=== PATIENT | male | born 1940 | race Native Hawaiian/Other Pacific Islander ===

== ENCOUNTER 2017-12-01 06:17 | Inpatient (IN) | payer MEDICARE ==
[2017-11-30 08:14] VITALS: BMI 26.5
[2017-12-01] MEDS ORDERED: Propofol 10 mg/ml Inj (20 ML) ONE (07:14)
[2017-12-01] MEDS ORDERED: Succinylcholine 200 mg/10 ml Inj IV ONE (07:15)
[2017-12-01] MEDS ORDERED: ePHEDrine 50 mg/ml Inj ONE (07:15)
[2017-12-01] MEDS ORDERED: Rocuronium 10 mg/ml (5 ml) ONE (07:15)
[2017-12-01] MEDS ORDERED: Midazolam 2 MG/2 ML VIAL ONE (07:15)
[2017-12-01 07:16] LABS: INR 0.9 (0.9-1.2); PARTIAL THROMBOPLASTIN TIME 28.7 Seconds (25.6-37.1); PROTHROMBIN TIME 10.1 Seconds (9.8-13.1)
[2017-12-01] MEDS ORDERED: methylPREDNISolone Depo 80 mg/ml Inj ONE (07:37)
[2017-12-01] MEDS ORDERED: Bupivacaine 0.5% Inj(30mL) ONE (07:38)
[2017-12-01] MEDS ORDERED: Thrombin Topical 5,000 Int Units Spray Kit ONE (07:38)
[2017-12-01] MEDS ORDERED: Bacitracin Ointment 30 GM TUBE ONE (07:38)
[2017-12-01] MEDS ORDERED: Lidocaine Hydrochloride 1% 0 ML ONE (07:38)
[2017-12-01] MEDS ORDERED: Absorbable Gelatin Sponge Size 100 ONE (07:38)
[2017-12-01] MEDS ORDERED: EPINEPHrine 1 mg/ml (1:1000) Inj ONE (07:47)
[2017-12-01] MEDS ORDERED: Lactated Ringer's 1,000 ML IV ONE ×2 (08:12→10:00)
--- NOTE | 2017-12-01 08:47 | RAD ---
HISTORY: preop COMPARISON: None available TECHNIQUE: Chest PA and lateral FINDINGS: LUNGS: Patchy left lower lobe opacity. Possible early pneumonia. Followup advised. PLEURA: No significant pleural effusion identified. No pneumothorax apparent. CARDIOVASCULAR: Normal. OSSEOUS STRUCTURES: No significant abnormalities. VISUALIZED UPPER ABDOMEN: Normal. OTHER FINDINGS: None. IMPRESSION: Patchy left lower lobe opacity. Follow-up advised.
[2017-12-01] MEDS ORDERED: Morphine 1 mg/ml preservative-free Inj(Duramorph) ONE (09:35)
[2017-12-01] MEDS ORDERED: Bupivacaine 0.5% 50 ML IJ ONE (09:50)
[2017-12-01] MEDS ORDERED: EPINEPHrine 1 mg/ml (1:1000) Inj IV ONE (09:50)
[2017-12-01] MEDS ORDERED: DiphenhydrAMINE 50 mg/ml Inj IVP PRN (10:46)
--- NOTE | 2017-12-01 11:55 | PCM.SURG1 ---
Surgeon's Initial Post Op Note - Surgeon's Notes Surgeon: Bayron Diaz MD Data Management Associate: Gardenia Maldonado PA-C; Loli Lowe DPM Type of Anesthesia: General Endo Pre-Operative Diagnosis: Right knee severe osteoarthritis Operative Findings: see op report Post-Operative Diagnosis: same as pre-op dx Operation Performed: R TKR Specimen/Specimens Removed: right knee bone and soft tissue Estimated Blood Loss: EBL {In ML}: 100 Date of Surgery/Procedure: 12/01/17 Time of Surgery/Procedure: 08:00
[2017-12-01] MEDS ORDERED: Oxycodone/Acetaminophen 5/325 mg Tab PO PRN (12:02)
--- NOTE | 2017-12-01 12:31 | RAD ---
PROCEDURE: Right Knee Radiographs. HISTORY: s/p RTKR COMPARISON: None. FINDINGS: BONES: Right total knee replacement. No osseous fracture. JOINTS: Normal. No osteoarthritis. JOINT EFFUSION: None. OTHER FINDINGS: Postoperative changes in anterior soft tissues about the knee and distal thigh IMPRESSION: Status post right TKR.
[2017-12-01] MEDS ORDERED: Dextrose 50% SYRINGE Inj (50 ml) IV PRN (12:56)
[2017-12-01] MEDS ORDERED: Glucagon Recombinant 1 mg Inj IM PRN (12:56)
--- NOTE | 2017-12-01 13:04 | CP.PCM.HP ---
<Thony Hart - Last Filed: 12/01/17 12:58> History of Present Illness - History of Present Illness History of Present Illness: CC: s/p right total knee replacement HPI: 77 y/o man w/ pmh of HTN, CAD s/p cath stented 2006, NIDDM2, HLD, diabetic neuropathy, and severe osteoarthritis of the right knee is admitted s/p right total knee replacement. Patient has severe OA of right knee thus prompting total replacement. The patient was seen in the PACU, tolerated the procedure w/ o complications, and is recovering appropriately. The patient reports mild pain and ache at surgical site but otherwise has no complaints. The patient denies headaches, chest pain, SOB, abdominal pain, nausea, vomiting, diarrhea, dysuria, or fever. PMD: Dr. Melo Bailey PMH: HTN, CAD s/p cath stented 2006, NIDDM2, HLD, diabetic neuropathy, and severe osteoarthritis of the right knee meds: see med list allergies: NKDA PSH: cath 2006 Fam: non-contributory SOC: denies smoking, alcohol, and drugs ROS: 12 points assessed and negative unless otherwise reported in HPI Present on Admission - Present on Admission Any Indicators Present on Admission: No History of DVT/PE: No History of Uncontrolled Diabetes: No Urinary Catheter: No Decubitus Ulcer Present: No Review of Systems - Review of Systems All systems: reviewed and no additional remarkable complaints except - Constitutional Constitutional: absent: Chills, Fever, Headache - EENT Eyes: absent: Change in Vision - Cardiovascular Cardiovascular: absent: Chest Pain - Respiratory Respiratory: absent: Dyspnea - Gastrointestinal Gastrointestinal: absent: Abdominal Pain, Diarrhea, Nausea, Vomiting - Genitourinary Genitourinary: absent: Dysuria - Integumentary Integumentary: absent: Rash Past Patient History - Past Medical History & Family History Past Medical History?: Yes - Past Social History Smoking Status: Never Smoked - CARDIAC Hx Cardiac Disorders: Yes Hx Hypercholesterolemia: Yes Hx Hypertension: Yes Other/Comment: has angioplasty w stent 10 yrs ago - PULMONARY Hx Respiratory Disorders: No - NEUROLOGICAL Hx Neurological Disorder: No - HEENT Hx HEENT Problems: Yes - RENAL Hx Chronic Kidney Disease: No - ENDOCRINE/METABOLIC Hx Endocrine Disorders: Yes Hx Diabetes Mellitus Type 2: Yes - HEMATOLOGICAL/ONCOLOGICAL Hx Blood Disorders: No - INTEGUMENTARY Hx Dermatological Problems: No - MUSCULOSKELETAL/RHEUMATOLOGICAL Hx Musculoskeletal Disorders: Yes Hx Arthritis: Yes (knees) - GASTROINTESTINAL Hx Gastrointestinal Disorders: No - GENITOURINARY/GYNECOLOGICAL Hx Genitourinary Disorders: No - PSYCHIATRIC Hx Psychophysiologic Disorder: No - SURGICAL HISTORY Hx Surgeries: No - ANESTHESIA Hx Anesthesia: No Hx Anesthesia Reactions: No Hx Malignant Hyperthermia: No Has any member of the family had a problem w/ anesthesia?: No Meds Allergies/Adverse Reactions: Allergies Allergy/AdvReac Type Severity Reaction Status Date / Time No Known Allergies Allergy Verified 11/30/17 08:14 Physical Exam - Constitutional Appears: Non-toxic, No Acute Distress - Head Exam Head Exam: ATRAUMATIC, NORMAL INSPECTION, NORMOCEPHALIC - Eye Exam Eye Exam: Normal appearance - ENT Exam ENT Exam: Mucous Membranes Moist - Neck Exam Neck exam: Positive for: Full Rom. Negative for: Tenderness - Respiratory Exam Respiratory Exam: Clear to Auscultation Bilateral, NORMAL BREATHING PATTERN. absent: Accessory Muscle Use, Decreased Breath Sounds, Rales, Rhonchi, Wheezes, Respiratory Distress - Cardiovascular Exam Cardiovascular Exam: REGULAR RHYTHM. absent: Tachycardia - GI/Abdominal Exam GI & Abdominal Exam: Normal Bowel Sounds, Soft. absent: Distended, Tenderness - Extremities Exam Extremities exam: Negative for: calf tenderness, pedal edema, tenderness Additional comments: right leg wrapped in diana bandage, c/d/i - Neurological Exam Neurological exam: Alert, Oriented x3 - Skin Skin Exam: Dry, Intact, Normal Color, Warm Results - Vital Signs Recent Vital Signs: Last Vital Signs Temp 97.4 F L 12/01/17 12:25 Pulse 87 12/01/17 12:25 Resp 18 12/01/17 12:25 BP 121/63 12/01/17 12:25 Pulse Ox 99 12/01/17 12:25 - Labs Labs: Laboratory Results - last 24 hr 12/01/17 12/01/17 12/01/17 06:45 06:45 07:24 PT 10.1 INR 0.9 APTT 28.7 POC Glucose (mg/dL) 149 H Blood Type A POSITIVE Antibody Screen Negative Crossmatch See Detail BBK History Checked No verified bt 12/01/17 10:55 PT INR APTT POC Glucose (mg/dL) 164 H Blood Type Antibody Screen Crossmatch BBK History Checked Assessment & Plan (1) Status post total right knee replacement Status: Acute (2) HTN (hypertension) Status: Chronic (3) Diabetes mellitus, type 2 Status: Chronic (4) CAD (coronary artery disease) Status: Chronic (5) Diabetic neuropathy Status: Chronic (6) HLD (hyperlipidemia) Status: Chronic - Assessment and Plan (Free Text) Plan: c/w present management c/w home medications afebrile, non-tachycardic, normotensive ortho recommendations appreciated pain management: tylenol 325 mg PO Q4h prn (mild), toradal 15 mg IV Q8h, percocet 1 tab PO Q4h prn (moderate), oxycodone 10 mg PO Q12h insulin correction scale hypoglycemic protocol prophylactic measures: DVT lovenox 40 mg SC daily f/u CBC, BMP in AM monitor for acute changes <Anuel Duran - Last Filed: 12/02/17 12:00> Results - Vital Signs Recent Vital Signs: Last Vital Signs Temp 99.8 F H 12/02/17 11:37 Pulse 102 H 12/02/17 11:37 Resp 20 12/02/17 11:37 BP 95/55 L 12/02/17 11:37 Pulse Ox 93 L 12/02/17 11:37 - Labs Result Diagrams: 12/02/17 05:40 12/02/17 05:40 Labs: Laboratory Results - last 24 hr 12/01/17 12/01/17 12/02/17 09:45 21:43 05:25 WBC RBC Hgb Hct MCV MCH MCHC RDW Plt Count MPV Neut % (Auto) Lymph % (Auto) [place] % (Auto) Eos % (Auto) Baso % (Auto) Neut # (Auto) Lymph # (Auto) [place] # (Auto) Eos # (Auto) Baso # (Auto) Sodium Potassium Chloride Carbon Dioxide Anion Gap BUN Creatinine Est GFR ( Amer) Est GFR (Non-Af Amer) POC Glucose (mg/dL) 171 H 158 H Random Glucose Calcium Blood Type Confirm A POSITIVE 12/02/17 12/02/17 12/02/17 05:40 05:40 10:57 WBC 8.5 RBC 3.56 L Hgb 10.6 L Hct 31.4 L MCV 88.3 MCH 29.7 MCHC 33.6 RDW 13.7 Plt Count 179 MPV 8.0 Neut % (Auto) 71.7 Lymph % (Auto) 15.0 L [place] % (Auto) 12.4 H Eos % (Auto) 0.8 Baso % (Auto) 0.1 Neut # (Auto) 6.1 Lymph # (Auto) 1.3 [place]field # (Auto) 1.0 H Eos # (Auto) 0.1 Baso # (Auto) 0.0 Sodium 131 L Potassium 4.6 Chloride 96 L Carbon Dioxide 25 Anion Gap 15 BUN 12 Creatinine 1.2 Est GFR ( Amer) > 60 Est GFR (Non-Af Amer) 59 POC Glucose (mg/dL) 186 H Random Glucose 164 H Calcium 8.5 Blood Type Confirm Assessment & Plan - Assessment and Plan (Free Text) Plan: I was present during evaluation and discussed with Dr Hart re plans of care and tx. Anuel Duran M.d.
--- NOTE | 2017-12-01 14:26 | OP ---
PROCEDURE DATE: 12/01/2017 PREOPERATIVE DIAGNOSIS: Right knee osteoarthritis. POSTOPERATIVE DIAGNOSIS: Right knee osteoarthritis. PROCEDURE: Right total knee replacement. ATTENDING PHYSICIAN: Bayron Diaz MD DIFFUSION OPERATOR: Gardenia Maldonado PA-C IMPLANTS SIZE: [employer] size 2 femur, size 2 tibia, 13 mm polyethylene insert, 29 mm patella. ANESTHESIA TYPE: General. ESTIMATED BLOOD LOSS: 50 mL. COMPLICATIONS: None. HISTORY: The patient with prolonged history of right knee pain progressively getting worse despite extensive conservative management, which included activity modification, injections, anti-inflammatory modification and physical therapy. X-rays had revealed advanced arthritis. Patient was indicated for total knee replacement due to continued pain and limited mobility. I had a detailed discussion with the patient in the office explaining the nature of the surgery, alternatives of surgery, risks and benefits, rehabilitation protocol and surgical markings. Risks of surgery include but not limited to continued pain, lack of motion, infection, vascular injury, DVT / PE, nerve injury including peroneal nerve dysfunction, reflex sympathetic dystrophy, compartment syndrome, unforeseen medical and/or anesthesia complications, limb loss, and even . The patient expressed an understanding of the risks and possible benefits of the procedure, and is also aware of the alternatives to surgery. PROCEDURE: On the day of the surgery, the patient was admitted to pre-operative holding area. A laterality sheet was completed confirming the correct operative site. The correct surgical knee was marked in the holding area and informed consent was signed from the patient. Once again, I reviewed the risks and benefits of the surgery with the patient in detail. These risks include but are not limited to continued pain, lack of motion, infection, vascular injury, DVT / PE, nerve injury including peroneal nerve dysfunction, reflex sympathetic dystrophy, symptomatic hardware, need for further procedure and surgeries, instability, iatrogenic fractures, compartment syndrome, unforeseen medical and/or anesthesia complications, limb loss, and even . The patient expressed an understanding of the risks and possible benefits of the procedure, also aware of the alternatives to surgery and signed the informed consent. The patient was transported to the operating room and placed in the supine position, general anesthesia was obtained. A padded tourniquet was applied to patient's operative thigh and appropriate prophylactic antibiotics were given. The operative leg was draped and prepped in standard sterile manner. Timeout was completed, confirming patient's right knee to be the correct operative site. Using an Esmarch, the extremity was exsanguinated and tourniquet was inflated to 350 mmHg. The surgical incision markings were made using patella border, tibial tubercle, patella and quadriceps tendon. Using a 10 blade, a midline incision was made. Skin dissection was taken until the prepatellar fascia was identified and the corners of the patellar tendon were marked for proper closure at the end of the procedure. Using a fresh 10 blade, a medial parapatellar arthrotomy was performed. The knee was exposed in the standard manner. The deep MCL was elevated for exposure, medial and lateral menisci were removed, ACL and PCL were also transected. The tibia was subluxed anteriorly. Planned tibial cut was made with power saw, using extra-medullary guide, perpendicular to mechanical axis of the tibia. After the cut was made, the alignment was also checked and was found to be appropriate. Tibial cut surface was measured with trial base plate and it was noted that size 2 tibial baseplate was provide sufficient coverage without overhang. Tibial component was externally rotated and marked. Next, the knee was placed into 90 degrees of flexion. A drill hole was made within the femoral notch anterior to PCL insertion for placement of intramedullary femoral alexis. Intramedullary femoral alexis was inserted within the femoral canal and planned distal femoral cut was made. After the cut, knee was brought into full extension. Spacer blocks were used to check the extension balancing both in full extension and 30 degrees of flexion. It was found that 13 mm trial spacer block allowed full extension with symmetric varus and valgus balancing. Next we proceed with Patella resurfacing. [place] patella width was 24 mm. Using the free-hand technique the arthritic patella surface was resected. Patella was sized using the guide and it was noted that 29 mm. Patella dome button would be appropriate for the patient. Next the size of femoral component was determined using the posterior referencing guide. It was noted that a size 2 femur would be appropriate for this patient without causing any significant notching. A 4 x 1 cutting block was placed and flexion gap balancing was checked. The flexion gap was found to be symmetric to the extension gap. Anterior and posterior condyle, anterior and posterior chamfer cuts were made. Next, appropriate size box cut for femoral component was prepared using the guide. The femoral trial component was impacted onto the distal femur. Appropriate size tibial trial component was also placed on the cut surface of the tibia. Using the drill and punch, keel for tibial implant was prepared. Trial tibial tray was secured onto the tibia using pins. Different size trial polyethylene inserts were secured on to the trial tibial tray to critically assess the following parametes: Full range of motion, extension and flexion gap balancing, mid-flexion stability, anterior and posterior drawer, and patellar tracking. All parameter were found to be satisfactory with 13 mm insert. All the trial components were removed. Implants were opened on the back table. Cement was mixed and we proceed with cement fixation of the implants. Tibial tray, femoral component and patellar dome button were secured with cement. Polyethylene insert was secured onto the tibial tray using locking mechanism. The knee was reduced and brought into full extension. Cement was allowed to harden until final component fixation. Knee was taken through the final range of motion for stability testing, and found to be satisfactory. 60 cc of custom cocktail mixture was injected into posterior capsule, MCL, LCL, quadriceps tendon, and patellar tendon. Wound was copiously irrigated with sterile antibiotic solution using pulse lavage. Arthrotomy was closed using heavy suture and wound was closed in standard manner. Patient was extubated, transferred to stretcher and taken to the recovery room. Post-operative instructions were provided, physical therapy consult was requested along with DVT prophylaxis and appropriate pain medications. During this procedure, I was assisted by Gardenia Maldonado PA-C, who assisted in positioning the patient on the operating room table as well as transferring the patient from the operating room table to the recovery room stretcher. In addition, Gardenia Maldonado PA-C assisted me during the actual operative procedure by positioning, protecting critical neurovascular structures, exposure of the joint, and proper positioning of the implants. The presence of Gardenia Maldonado PA-C as my operative sociology research assistant was medically necessary to ensure the utmost safety of the patient in the pre, intra-, and post-operative periods. Bayron Diaz MD [facility]
[2017-12-01] MEDS ORDERED: ceFAZolin 1 GM in Sodium Chloride 0.9% 100 ML IVPB ONE ×2 (14:30→20:30)
[2017-12-01] MEDS: oxyCODONE 10 mg ER Tab (oxyCONTIN) PO SCH (21:24)
[2017-12-02 06:40] LABS: BASO % 0.1 % (0.0-2.0); EOS # 0.1 K/uL (0.0-0.7); EOS % 0.8 % (0.0-4.0); HEMOGLOBIN 10.6 g/dL (12.0-18.0); LYMPH # 1.3 K/uL (1.0-4.3); MEAN CELL VOLUME 88.3 fl (80.0-94.0); MEAN CORPUSCULAR HEMOGLOBIN 29.7 pg (27.0-31.0); MEAN CORPUSCULAR HGB CONC 33.6 g/dL (33.0-37.0); MONO % 12.4 % (0.0-10.0); NEUT # 6.1 K/uL (1.8-7.0); NEUT % 71.7 % (50.0-75.0); RBC 3.56 Mil/uL (4.40-5.90); RED CELL DISTRIBUTION WIDTH 13.7 % (11.5-14.5); WHITE BLOOD COUNT 8.5 K/uL (4.8-10.8)
[2017-12-02 06:52] LABS: BLOOD UREA NITROGEN 12 mg/dl (9-20); CALCIUM 8.5 mg/dL (8.4-10.2); GFR AFRICAN-AMERICAN > 60; GFR NON-AFRICAN AMERICAN 59
--- NOTE | 2017-12-02 08:57 | CP.PCM.PN ---
Subjective - Date & Time of Evaluation Date of Evaluation: 12/02/17 Time of Evaluation: 08:30 - Subjective Subjective: S/P RTKR POD#1 Pt seen and examined at bedside, comfortable in bed Pt c/o mild right thigh and knee pain Pt denies any SOB, chest pain, N/V/D, numbness/tingling RLE Objective - Vital Signs/Intake and Output Vital Signs (last 24 hours): Temp Pulse Resp BP Pulse Ox 98.7 F 98 H 18 108/64 94 L 12/02/17 08:25 12/02/17 08:25 12/02/17 08:25 12/02/17 08:25 12/02/17 08:25 Intake and Output: 12/02/17 12/02/17 06:59 18:59 Intake Total 500 Output Total 450 Balance 50 - Medications Medications: Current Medications Acetaminophen (Tylenol 325mg Tab) 325 mg PO Q4 PRN PRN Reason: pain1-3 Aspirin (Ecotrin) 81 mg PO DAILY [facility] Atorvastatin Calcium (Lipitor) 10 mg PO DAILY [facility] Celecoxib (Celebrex) 100 mg PO Q12 [facility] Stop: 01/12/18 09:01 Last Admin: 12/01/17 21:26 Dose: 100 mg Dextrose (Dextrose 50% Inj) 0 ml IV STAT PRN; Protocol PRN Reason: Hypoglycemia Protocol Dextrose (Glutose 15) 0 gm PO ONCE PRN; Protocol PRN Reason: Hypoglycemia Protocol Enoxaparin Sodium (Lovenox) 40 mg SC DAILY [facility] PRN Reason: Protocol Gabapentin (Neurontin) 300 mg PO TID [facility] Last Admin: 12/01/17 21:25 Dose: 300 mg Glucagon (Glucagen Diagnostic Kit) 0 mg IM STAT PRN; Protocol PRN Reason: Hypoglycemia Protocol Insulin Human Lispro (Humalog) 0 units SC ACTID [facility] PRN Reason: Protocol Ketorolac Tromethamine (Toradol) 15 mg IVP Q8 [facility] Stop: 12/03/17 23:59 Last Admin: 12/02/17 01:02 Dose: 15 mg Metformin HCl (Glucophage) 500 mg PO BID [facility] Metoprolol Succinate (Toprol Xl) 25 mg PO DAILY [facility] Multivitamins/Minerals (Therapeutic-M Tab) 1 tab PO DAILY [facility] Oxycodone HCl (Oxycontin Extended Release Tab) 10 mg PO Q12 [facility] Stop: 12/15/17 09:01 Last Admin: 12/01/17 21:24 Dose: 10 mg Oxycodone/Acetaminophen (Percocet 5/325 Mg Tab) 1 tab PO Q4 PRN PRN Reason: pain4-7 Stop: 12/04/17 12:03 Tamsulosin HCl (Flomax) 0.4 mg PO HS [facility] Last Admin: 12/01/17 21:25 Dose: 0.4 mg - Labs Labs: 12/02/17 05:40 12/02/17 05:40 PT 10.1 Seconds (9.8-13.1) 12/01/17 06:45 INR 0.9 (0.9-1.2) 12/01/17 06:45 APTT 28.7 Seconds (25.6-37.1) 12/01/17 06:45 - Constitutional Appears: Well, No Acute Distress - Respiratory Exam Respiratory Exam: Clear to Ausculation Bilateral, NORMAL BREATHING PATTERN - Cardiovascular Exam Cardiovascular Exam: REGULAR RHYTHM, RRR - Extremities Exam Additional comments: RLE: Knee dressing C/D/I Calves soft and nontender b/l N/V intact distally Normal ROM at ankle No foot drop Distal pulses wnl Assessment and Plan - Assessment and Plan (Free Text) Assessment: 77 yo M s/p RTKR POD#1 Plan: Pain Control Incentive Spirometer DVT ppx- SCD b/l Start lovenox today PT/OT WBAT RLE F/U labs
[2017-12-02] MEDS: Insulin Lispro (humaLOG) 100 Units/ml Inj SC SCH ×4 (09:11→18:50)
[2017-12-02] MEDS: Multivitamin With Minerals Tab PO SCH (09:12)
[2017-12-02] MEDS: Enoxaparin 40 mg Syringe SC SCH (09:12)
[2017-12-02] MEDS: Metoprolol Succinate 25 mg XL Tab PO SCH (09:13)
[2017-12-02] MEDS: oxyCODONE 10 mg ER Tab (oxyCONTIN) PO SCH ×2 (09:17→21:53)
--- NOTE | 2017-12-02 12:03 | CP.PCM.PN ---
Subjective - Date & Time of Evaluation Date of Evaluation: 12/02/17 Time of Evaluation: 12:00 - Subjective Subjective: patient has minimal pain Noted distended abdomen No bm since a day prior to surgery Noted elevated FBS No A1c on low dose metformin Objective - Vital Signs/Intake and Output Vital Signs (last 24 hours): Temp Pulse Resp BP Pulse Ox 99.8 F H 102 H 20 95/55 L 93 L 12/02/17 11:37 12/02/17 11:37 12/02/17 11:37 12/02/17 11:37 12/02/17 11:37 Intake and Output: 12/02/17 12/02/17 06:59 18:59 Intake Total 500 Output Total 450 Balance 50 - Medications Medications: Current Medications Acetaminophen (Tylenol 325mg Tab) 325 mg PO Q4 PRN PRN Reason: pain1-3 Aspirin (Ecotrin) 81 mg PO DAILY [facility] Last Admin: 12/02/17 09:10 Dose: 81 mg Atorvastatin Calcium (Lipitor) 10 mg PO DAILY [facility] Last Admin: 12/02/17 09:11 Dose: 10 mg Celecoxib (Celebrex) 100 mg PO Q12 [facility] Stop: 01/12/18 09:01 Last Admin: 12/02/17 09:10 Dose: 100 mg Dextrose (Dextrose 50% Inj) 0 ml IV STAT PRN; Protocol PRN Reason: Hypoglycemia Protocol Dextrose (Glutose 15) 0 gm PO ONCE PRN; Protocol PRN Reason: Hypoglycemia Protocol Enoxaparin Sodium (Lovenox) 40 mg SC DAILY [facility] PRN Reason: Protocol Last Admin: 12/02/17 09:12 Dose: 40 mg Gabapentin (Neurontin) 300 mg PO TID [facility] Last Admin: 12/02/17 09:12 Dose: 300 mg Glucagon (Glucagen Diagnostic Kit) 0 mg IM STAT PRN; Protocol PRN Reason: Hypoglycemia Protocol Insulin Human Lispro (Humalog) 0 units SC ACTID [facility] PRN Reason: Protocol Last Admin: 12/02/17 09:11 Dose: 2 units Ketorolac Tromethamine (Toradol) 15 mg IVP Q8 [facility] Stop: 12/03/17 23:59 Last Admin: 12/02/17 09:13 Dose: 15 mg Lactulose (Enulose) 20 gm PO DAILY PRN PRN Reason: Constipation Metformin HCl (Glucophage) 500 mg PO BID [facility] Last Admin: 12/02/17 09:10 Dose: 500 mg Metoprolol Succinate (Toprol Xl) 25 mg PO DAILY [facility] Last Admin: 12/02/17 09:13 Dose: 25 mg Multivitamins/Minerals (Therapeutic-M Tab) 1 tab PO DAILY [facility] Last Admin: 12/02/17 09:12 Dose: 1 tab Oxycodone HCl (Oxycontin Extended Release Tab) 10 mg PO Q12 [facility] Stop: 12/15/17 09:01 Last Admin: 12/02/17 09:17 Dose: 10 mg Oxycodone/Acetaminophen (Percocet 5/325 Mg Tab) 1 tab PO Q4 PRN PRN Reason: pain4-7 Stop: 12/04/17 12:03 Tamsulosin HCl (Flomax) 0.4 mg PO HS [facility] Last Admin: 12/01/17 21:25 Dose: 0.4 mg - Labs Labs: 12/02/17 05:40 12/02/17 05:40 PT 10.1 Seconds (9.8-13.1) 12/01/17 06:45 INR 0.9 (0.9-1.2) 12/01/17 06:45 APTT 28.7 Seconds (25.6-37.1) 12/01/17 06:45 - Head Exam Head Exam: NORMAL INSPECTION - Eye Exam Eye Exam: Normal appearance - ENT Exam ENT Exam: Mucous Membranes Moist - Respiratory Exam Respiratory Exam: Clear to Ausculation Bilateral - Cardiovascular Exam Cardiovascular Exam: REGULAR RHYTHM - GI/Abdominal Exam GI & Abdominal Exam: Distended, Hypoactive Bowel Sounds - Neurological Exam Neurological Exam: Awake, Oriented x3 Assessment and Plan (1) Status post total right knee replacement Status: Acute (2) CAD (coronary artery disease) Status: Chronic (3) Diabetes mellitus, type 2 Status: Chronic (4) HTN (hypertension) Status: Chronic (5) Constipation Status: Acute (6) Abdominal distention Status: Acute - Assessment and Plan (Free Text) Plan: do flat plate check a1c lipid tsh and increase metformin to max dose add januvia start lactulose start PT
--- NOTE | 2017-12-02 14:08 | RAD ---
HISTORY: Abdominal distention COMPARISON: No prior. FINDINGS: BOWEL: There is mild gaseous distention of the small bowel loops and gas in the colon. There is moderate amount of stool in the colon. BONES: Normal. OTHER FINDINGS: None. IMPRESSION: Mild gaseous distension of the small bowel loops and gas in the colon which could be related to ileus or developing obstruction. Follow-up is advised.
[2017-12-02] MEDS ORDERED: Simethicone 80 mg Chewtab PO PRN (20:48)
[2017-12-02] MEDS: POLYETHYLENE GLYCOL 3350 17 GM/Dose PACKET PO ONE ×2 (22:03→22:05)
[2017-12-03 07:06] LABS: BASO % 0.2 % (0.0-2.0); EOS # 0.1 K/uL (0.0-0.7); EOS % 0.7 % (0.0-4.0); HEMOGLOBIN 10.2 g/dL (12.0-18.0); LYMPH # 1.6 K/uL (1.0-4.3); LYMPH % 17.2 % (20.0-40.0); MEAN CELL VOLUME 88.9 fl (80.0-94.0); MEAN CORPUSCULAR HEMOGLOBIN 30.1 pg (27.0-31.0); MEAN CORPUSCULAR HGB CONC 33.8 g/dL (33.0-37.0); MEAN PLATELET VOLUME 7.9 fl (7.2-11.7); MONO # 1.4 K/uL (0.0-0.8); MONO % 14.2 % (0.0-10.0); NEUT # 6.5 K/uL (1.8-7.0); NEUT % 67.7 % (50.0-75.0); RBC 3.38 Mil/uL (4.40-5.90); RED CELL DISTRIBUTION WIDTH 13.6 % (11.5-14.5); WHITE BLOOD COUNT 9.6 K/uL (4.8-10.8)
[2017-12-03 07:12] LABS: BLOOD UREA NITROGEN 14 mg/dl (9-20); CALCIUM 8.7 mg/dL (8.4-10.2); GFR AFRICAN-AMERICAN > 60; GFR NON-AFRICAN AMERICAN 54
[2017-12-03] MEDS: oxyCODONE 10 mg ER Tab (oxyCONTIN) PO SCH ×2 (09:23→21:40)
[2017-12-03] MEDS: Multivitamin With Minerals Tab PO SCH (09:30)
[2017-12-03] MEDS: Enoxaparin 40 mg Syringe SC SCH (09:30)
[2017-12-03] MEDS: Insulin Lispro (humaLOG) 100 Units/ml Inj SC SCH ×3 (09:30→16:57)
[2017-12-03] MEDS: Metoprolol Succinate 25 mg XL Tab PO SCH (09:31)
--- NOTE | 2017-12-03 13:13 | CP.PCM.PN ---
<Thony Hart - Last Filed: 12/03/17 13:10> Subjective - Date & Time of Evaluation Date of Evaluation: 12/03/17 Time of Evaluation: 10:35 - Subjective Subjective: Patient seen and examined this morning at bedside w/ Dr. Duran. There are no acute events overnight, NAD. The patient is laying bed comfortably. Patient reports he has a lot of gas. Patient reported large bowel movement s/p fleet enema this morning. The patient has no other complaints. The patient denies headaches, chest pain, SOB, abdominal pain, nausea, vomiting, dysuria, or fever. Objective - Vital Signs/Intake and Output Vital Signs (last 24 hours): Temp Pulse Resp BP Pulse Ox 99.3 F 99 H 19 121/74 96 12/03/17 09:37 12/03/17 09:37 12/03/17 09:37 12/03/17 09:37 12/03/17 09:37 - Medications Medications: Current Medications Acetaminophen (Tylenol 325mg Tab) 325 mg PO Q4 PRN PRN Reason: pain1-3 Aspirin (Ecotrin) 81 mg PO DAILY [facility] Last Admin: 12/03/17 09:29 Dose: 81 mg Atorvastatin Calcium (Lipitor) 10 mg PO DAILY [facility] Last Admin: 12/03/17 09:30 Dose: 10 mg Celecoxib (Celebrex) 100 mg PO Q12 [facility] Stop: 01/12/18 09:01 Last Admin: 12/03/17 09:29 Dose: 100 mg Dextrose (Dextrose 50% Inj) 0 ml IV STAT PRN; Protocol PRN Reason: Hypoglycemia Protocol Dextrose (Glutose 15) 0 gm PO ONCE PRN; Protocol PRN Reason: Hypoglycemia Protocol Enoxaparin Sodium (Lovenox) 40 mg SC DAILY [facility] PRN Reason: Protocol Last Admin: 12/03/17 09:30 Dose: 40 mg Gabapentin (Neurontin) 300 mg PO TID [facility] Last Admin: 12/03/17 12:54 Dose: 300 mg Glucagon (Glucagen Diagnostic Kit) 0 mg IM STAT PRN; Protocol PRN Reason: Hypoglycemia Protocol Insulin Human Lispro (Humalog) 0 units SC ACTID [facility] PRN Reason: Protocol Last Admin: 12/03/17 12:54 Dose: 2 units Ketorolac Tromethamine (Toradol) 15 mg IVP Q8 [facility] Stop: 12/03/17 23:59 Last Admin: 12/03/17 09:31 Dose: 15 mg Lactulose (Enulose) 20 gm PO DAILY PRN PRN Reason: Constipation Last Admin: 12/03/17 09:24 Dose: 20 gm Metformin HCl (Glucophage) 1,000 mg PO BIDWM [facility] Last Admin: 12/03/17 09:17 Dose: Not Given Metoprolol Succinate (Toprol Xl) 25 mg PO DAILY [facility] Last Admin: 12/03/17 09:31 Dose: 25 mg Multivitamins/Minerals (Therapeutic-M Tab) 1 tab PO DAILY [facility] Last Admin: 12/03/17 09:30 Dose: 1 tab Oxycodone HCl (Oxycontin Extended Release Tab) 10 mg PO Q12 [facility] Stop: 12/15/17 09:01 Last Admin: 12/03/17 09:23 Dose: 10 mg Oxycodone/Acetaminophen (Percocet 5/325 Mg Tab) 1 tab PO Q4 PRN PRN Reason: pain4-7 Stop: 12/04/17 12:03 Simethicone (Mylicon Chew Tab) 80 mg PO [facility] PRN PRN Reason: Flatulence Last Admin: 12/02/17 21:53 Dose: 80 mg Sitagliptin Phosphate (Januvia) 100 mg PO DAILY [facility] Last Admin: 12/03/17 09:30 Dose: Not Given Tamsulosin HCl (Flomax) 0.4 mg PO [facility] Last Admin: 12/02/17 21:53 Dose: 0.4 mg - Labs Labs: 12/03/17 06:20 12/03/17 06:20 PT 10.1 Seconds (9.8-13.1) 12/01/17 06:45 INR 0.9 (0.9-1.2) 12/01/17 06:45 APTT 28.7 Seconds (25.6-37.1) 12/01/17 06:45 - Constitutional Appears: Non-toxic, No Acute Distress - Head Exam Head Exam: ATRAUMATIC, NORMAL INSPECTION, NORMOCEPHALIC - Eye Exam Eye Exam: Normal appearance - ENT Exam ENT Exam: Mucous Membranes Moist - Neck Exam Neck Exam: Full ROM. absent: Tenderness - Respiratory Exam Respiratory Exam: Clear to Ausculation Bilateral. absent: Accessory Muscle Use , Decreased Breath Sounds, Rales, Rhonchi, Wheezes, Respiratory Distress - GI/Abdominal Exam GI & Abdominal Exam: Distended, Soft, Normal Bowel Sounds. absent: Tenderness - Extremities Exam Extremities Exam: absent: Calf Tenderness, Pedal Edema, Tenderness Additional comments: right leg wrapped in diana bandage, c/d/i - Neurological Exam Neurological Exam: Alert, Awake, Oriented x3 - Skin Skin Exam: Dry, Intact, Normal Color, Warm Assessment and Plan (1) Status post total right knee replacement Status: Acute (2) HTN (hypertension) Status: Chronic (3) Diabetes mellitus, type 2 Status: Chronic (4) CAD (coronary artery disease) Status: Chronic (5) Diabetic neuropathy Status: Chronic (6) HLD (hyperlipidemia) Status: Chronic - Assessment and Plan (Free Text) Plan: c/w present management c/w home medications afebrile, non-tachycardic, normotensive ortho recommendations appreciated pain management: tylenol 325 mg PO Q4h prn (mild), toradal 15 mg IV Q8h, percocet 1 tab PO Q4h prn (moderate), oxycodone 10 mg PO Q12h insulin correction scale hypoglycemic protocol prophylactic measures: DVT lovenox 40 mg SC daily f/u portable abdominal XR f/u CBC, BMP in AM encourage incentive spirometer monitor for acute changes <Anuel Duran - Last Filed: 12/03/17 22:15> Subjective - Subjective Subjective: I was present during evaluation and discussed with Dr Hailey gallego plans of care and mgt. Anuel Duran M.D. Objective - Vital Signs/Intake and Output Vital Signs (last 24 hours): Temp Pulse Resp BP Pulse Ox 99.4 F 99 H 20 102/63 96 12/03/17 16:29 12/03/17 16:29 12/03/17 16:29 12/03/17 16:29 12/03/17 16:29 - Medications Medications: Current Medications Acetaminophen (Tylenol 325mg Tab) 325 mg PO Q4 PRN PRN Reason: pain1-3 Aspirin (Ecotrin) 81 mg PO DAILY [facility] Last Admin: 12/03/17 09:29 Dose: 81 mg Atorvastatin Calcium (Lipitor) 10 mg PO DAILY [facility] Last Admin: 12/03/17 09:30 Dose: 10 mg Celecoxib (Celebrex) 100 mg PO Q12 [facility] Stop: 01/12/18 09:01 Last Admin: 12/03/17 21:41 Dose: 100 mg Dextrose (Dextrose 50% Inj) 0 ml IV STAT PRN; Protocol PRN Reason: Hypoglycemia Protocol Dextrose (Glutose 15) 0 gm PO ONCE PRN; Protocol PRN Reason: Hypoglycemia Protocol Enoxaparin Sodium (Lovenox) 40 mg SC DAILY [facility] PRN Reason: Protocol Last Admin: 12/03/17 09:30 Dose: 40 mg Gabapentin (Neurontin) 300 mg PO TID [facility] Last Admin: 12/03/17 16:52 Dose: 300 mg Glucagon (Glucagen Diagnostic Kit) 0 mg IM STAT PRN; Protocol PRN Reason: Hypoglycemia Protocol Insulin Human Lispro (Humalog) 0 units SC ACTID [facility] PRN Reason: Protocol Last Admin: 12/03/17 16:57 Dose: 2 units Ketorolac Tromethamine (Toradol) 15 mg IVP Q8 [facility] Stop: 12/03/17 23:59 Last Admin: 12/03/17 16:53 Dose: 15 mg Metformin HCl (Glucophage) 1,000 mg PO BIDWM [facility] Last Admin: 12/03/17 16:53 Dose: 1,000 mg Metoprolol Succinate (Toprol Xl) 25 mg PO DAILY [facility] Last Admin: 12/03/17 09:31 Dose: 25 mg Multivitamins/Minerals (Therapeutic-M Tab) 1 tab PO DAILY [facility] Last Admin: 12/03/17 09:30 Dose: 1 tab Oxycodone HCl (Oxycontin Extended Release Tab) 10 mg PO Q12 [facility] Stop: 12/15/17 09:01 Last Admin: 12/03/17 21:40 Dose: 10 mg Oxycodone/Acetaminophen (Percocet 5/325 Mg Tab) 1 tab PO Q4 PRN PRN Reason: pain4-7 Stop: 12/04/17 12:03 Pantoprazole Sodium (Protonix Ec Tab) 40 mg PO DAILY [facility] Polyethylene Glycol (Miralax) 17 gm PO BID [facility] Last Admin: 12/03/17 16:52 Dose: 17 gm Simethicone (Mylicon Chew Tab) 80 mg PO HS PRN PRN Reason: Flatulence Last Admin: 12/02/17 21:53 Dose: 80 mg Sitagliptin Phosphate (Januvia) 100 mg PO DAILY [facility] Last Admin: 12/03/17 09:30 Dose: Not Given Tamsulosin HCl (Flomax) 0.4 mg PO HS [facility] Last Admin: 12/03/17 21:40 Dose: 0.4 mg - Labs Labs: 12/03/17 06:20 12/03/17 06:20 PT 10.1 Seconds (9.8-13.1) 12/01/17 06:45 INR 0.9 (0.9-1.2) 12/01/17 06:45 APTT 28.7 Seconds (25.6-37.1) 12/01/17 06:45 Assessment and Plan (1) Status post total right knee replacement Status: Acute (2) CAD (coronary artery disease) Status: Chronic (3) Diabetes mellitus, type 2 Status: Chronic (4) HTN (hypertension) Status: Chronic (5) Constipation Status: Acute (6) Abdominal distention Status: Acute
--- NOTE | 2017-12-03 14:27 | RAD ---
HISTORY: Abdominal distention, ? ileus COMPARISON: 12/02/2017 FINDINGS: BOWEL: No evidence of bowel obstruction. No masses or abnormal calcifications. No hepatic or splenic enlargement. BONES: Normal. OTHER FINDINGS: None. IMPRESSION: No active disease.
--- NOTE | 2017-12-03 14:59 | CP.PCM.CON ---
History of Present Illness - History of Present Illness History of Present Illness: GI Fellow PGY4 Consult Note This is a 77 y/o man w/ pmh of HTN, CAD s/p cath stented 2006, NIDDM2, HLD, diabetic neuropathy,and severe osteoarthritis of the right knee is admitted s/p right total knee replacement. The patient reports mild pain and ache at surgical site but otherwise has no complaints. The patient denies headaches, chest pain, SOB, abdominal pain, nausea, vomiting, diarrhea, dysuria, or fever. Gastroenterology was consulted or possible SBO. Pt denies any abdominal pain but does reports mild distension of abdomen from baseline. He reports regular BM at home with no constipation and BM was 2 days prior to surgery. Since his admission he received a fleet enema, lactulose, miralax and had a large BM this am. He is passing gas with no nausea or vomiting. At home pt did take fiber supplement to regulate his BM. Hx of Colonoscopy [address] Barahona with no reported polyps and repeat in 5yrs per pt. He reports some heartburn but no hx of EGD. Abdominal xrays reviewed showing gas, stool and mild small bowel distention. ROS: 12 points assessed and negative unless otherwise reported in HPI PMH: As stated in HPI PSH: cath 2006 FH: Neg for colon cancer SH denies smoking, alcohol, and drugs Past Patient History - Past Medical History & Family History Past Medical History?: Yes - Past Social History Smoking Status: Never Smoked - CARDIAC Hx Cardiac Disorders: Yes Hx Hypertension: Yes - PULMONARY Hx Respiratory Disorders: No - NEUROLOGICAL Hx Neurological Disorder: No - HEENT Hx HEENT Problems: Yes - RENAL Hx Chronic Kidney Disease: No - ENDOCRINE/METABOLIC Hx Diabetes Mellitus Type 2: Yes - HEMATOLOGICAL/ONCOLOGICAL Hx Blood Disorders: No - INTEGUMENTARY Hx Dermatological Problems: No - MUSCULOSKELETAL/RHEUMATOLOGICAL Hx Arthritis: Yes - GASTROINTESTINAL Hx Gastrointestinal Disorders: No - GENITOURINARY/GYNECOLOGICAL Hx Genitourinary Disorders: No - PSYCHIATRIC Hx Psychophysiologic Disorder: No - SURGICAL HISTORY Hx Surgeries: No - ANESTHESIA Hx Anesthesia: No Hx Anesthesia Reactions: No Hx Malignant Hyperthermia: No Has any member of the family had a problem w/ anesthesia?: No Meds Allergies/Adverse Reactions: Allergies Allergy/AdvReac Type Severity Reaction Status Date / Time No Known Allergies Allergy Verified 11/30/17 08:14 - Medications Medications: Current Medications Acetaminophen (Tylenol 325mg Tab) 325 mg PO Q4 PRN PRN Reason: pain1-3 Aspirin (Ecotrin) 81 mg PO DAILY [facility] Last Admin: 12/03/17 09:29 Dose: 81 mg Atorvastatin Calcium (Lipitor) 10 mg PO DAILY [facility] Last Admin: 12/03/17 09:30 Dose: 10 mg Celecoxib (Celebrex) 100 mg PO Q12 [facility] Stop: 01/12/18 09:01 Last Admin: 12/03/17 09:29 Dose: 100 mg Dextrose (Dextrose 50% Inj) 0 ml IV STAT PRN; Protocol PRN Reason: Hypoglycemia Protocol Dextrose (Glutose 15) 0 gm PO ONCE PRN; Protocol PRN Reason: Hypoglycemia Protocol Enoxaparin Sodium (Lovenox) 40 mg SC DAILY [facility] PRN Reason: Protocol Last Admin: 12/03/17 09:30 Dose: 40 mg Gabapentin (Neurontin) 300 mg PO TID [facility] Last Admin: 12/03/17 12:54 Dose: 300 mg Glucagon (Glucagen Diagnostic Kit) 0 mg IM STAT PRN; Protocol PRN Reason: Hypoglycemia Protocol Insulin Human Lispro (Humalog) 0 units SC ACTID [facility] PRN Reason: Protocol Last Admin: 12/03/17 12:54 Dose: 2 units Ketorolac Tromethamine (Toradol) 15 mg IVP Q8 [facility] Stop: 12/03/17 23:59 Last Admin: 12/03/17 09:31 Dose: 15 mg Metformin HCl (Glucophage) 1,000 mg PO BIDWM [facility] Last Admin: 12/03/17 09:17 Dose: Not Given Metoprolol Succinate (Toprol Xl) 25 mg PO DAILY [facility] Last Admin: 12/03/17 09:31 Dose: 25 mg Multivitamins/Minerals (Therapeutic-M Tab) 1 tab PO DAILY [facility] Last Admin: 12/03/17 09:30 Dose: 1 tab Oxycodone HCl (Oxycontin Extended Release Tab) 10 mg PO Q12 [facility] Stop: 12/15/17 09:01 Last Admin: 12/03/17 09:23 Dose: 10 mg Oxycodone/Acetaminophen (Percocet 5/325 Mg Tab) 1 tab PO Q4 PRN PRN Reason: pain4-7 Stop: 12/04/17 12:03 Polyethylene Glycol (Miralax) 17 gm PO BID [facility] Simethicone (Mylicon Chew Tab) 80 mg PO HS PRN PRN Reason: Flatulence Last Admin: 12/02/17 21:53 Dose: 80 mg Sitagliptin Phosphate (Januvia) 100 mg PO DAILY [facility] Last Admin: 12/03/17 09:30 Dose: Not Given Tamsulosin HCl (Flomax) 0.4 mg PO HS [facility] Last Admin: 12/02/17 21:53 Dose: 0.4 mg Physical Exam - Constitutional Appears: Non-toxic, No Acute Distress - Head Exam Head Exam: ATRAUMATIC, NORMAL INSPECTION, NORMOCEPHALIC - Eye Exam Eye Exam: EOMI, Normal appearance, PERRL Pupil Exam: PERRL - ENT Exam ENT Exam: Mucous Membranes Moist, Normal Exam - Neck Exam Neck exam: Positive for: Full Rom - Respiratory Exam Respiratory Exam: Clear to Auscultation Bilateral, NORMAL BREATHING PATTERN - Cardiovascular Exam Cardiovascular Exam: REGULAR RHYTHM, RRR, +S1, +S2 - GI/Abdominal Exam GI & Abdominal Exam: Distended, Hyperactive Bowel Sounds, Soft. absent: Firm, Guarding, Organomegaly, Rigid, Tenderness - Rectal Exam Rectal Exam: Deferred - Extremities Exam Extremities exam: Positive for: normal inspection. Negative for: calf tenderness, pedal edema Additional comments: Right knee with surgical dressing post op - Back Exam Back exam: NORMAL INSPECTION - Neurological Exam Neurological exam: Alert, Oriented x3 - Psychiatric Exam Psychiatric exam: Normal Affect, Normal Mood - Skin Skin Exam: Dry, Intact, Normal Color, Warm Results - Vital Signs Recent Vital Signs: Last Vital Signs Temp 99.3 F 12/03/17 09:37 Pulse 99 H 12/03/17 09:37 Resp 19 12/03/17 09:37 BP 121/74 12/03/17 09:37 Pulse Ox 96 12/03/17 09:37 - Labs Result Diagrams: 12/03/17 06:20 12/03/17 06:20 Labs: Laboratory Results - last 24 hr 12/02/17 12/02/17 12/02/17 12:13 15:44 22:24 WBC RBC Hgb Hct MCV MCH MCHC RDW Plt Count MPV Neut % (Auto) Lymph % (Auto) Banks % (Auto) Eos % (Auto) Baso % (Auto) Neut # (Auto) Lymph # (Auto) Banks # (Auto) Eos # (Auto) Baso # (Auto) Sodium Potassium Chloride Carbon Dioxide Anion Gap BUN Creatinine Est GFR ( Amer) Est GFR (Non-Af Amer) POC Glucose (mg/dL) 186 H 191 H Random Glucose Hemoglobin A1c 7.2 H Calcium 12/03/17 12/03/17 12/03/17 05:20 06:20 06:20 WBC 9.6 RBC 3.38 L Hgb 10.2 L Hct 30.0 L MCV 88.9 MCH 30.1 MCHC 33.8 RDW 13.6 Plt Count 176 MPV 7.9 Neut % (Auto) 67.7 Lymph % (Auto) 17.2 L Banks % (Auto) 14.2 H Eos % (Auto) 0.7 Baso % (Auto) 0.2 Neut # (Auto) 6.5 Lymph # (Auto) 1.6 Banks # (Auto) 1.4 H Eos # (Auto) 0.1 Baso # (Auto) 0.0 Sodium 132 Potassium 4.5 Chloride 96 L Carbon Dioxide 25 Anion Gap 16 BUN 14 Creatinine 1.3 Est GFR ( Amer) > 60 Est GFR (Non-Af Amer) 54 POC Glucose (mg/dL) 137 H Random Glucose 137 H Hemoglobin A1c Calcium 8.7 12/03/17 11:23 WBC RBC Hgb Hct MCV MCH MCHC RDW Plt Count MPV Neut % (Auto) Lymph % (Auto) Banks % (Auto) Eos % (Auto) Baso % (Auto) Neut # (Auto) Lymph # (Auto) Banks # (Auto) Eos # (Auto) Baso # (Auto) Sodium Potassium Chloride Carbon Dioxide Anion Gap BUN Creatinine Est GFR ( Amer) Est GFR (Non-Af Amer) POC Glucose (mg/dL) 169 H Random Glucose Hemoglobin A1c Calcium Assessment & Plan - Assessment and Plan (Free Text) Assessment: This is a 77yM with hx of osteoarthritis of right knee admitted s/p RTKR. 1. Abdominal distention 2. Constipation 3. GERD 4. s/p RTKR Plan: -Continue supportive care with pain control and anti-emetics -Abdominal xrays reviewed showing gas, stool and mild small bowel distention -No clinical indication of SBO, constipation likely due to pain medication opioid and post surgical -Continue to monitor for signs of ileus or SBO -Recommend bowel regimen with miralax bid, pt is s/p fleet enema with large BM, would avoid lactulose as causes gas and cramping -Also will order protonix while on NSAIDs and lovenox and complaints of GERD -Will continue to follow closely Case discussed with Dr. Marte who agrees with above mentioned villaseñor of care.
[2017-12-03 16:30] VITALS: RESP 20
[2017-12-03] MEDS: POLYETHYLENE GLYCOL 3350 17 GM/Dose PACKET PO SCH (16:52)
[2017-12-04 06:14] LABS: BASO % 0.3 % (0.0-2.0); EOS # 0.1 K/uL (0.0-0.7); EOS % 1.6 % (0.0-4.0); HEMOGLOBIN 9.3 g/dL (12.0-18.0); LYMPH # 1.2 K/uL (1.0-4.3); LYMPH % 14.4 % (20.0-40.0); MEAN CELL VOLUME 88.1 fl (80.0-94.0); MEAN CORPUSCULAR HEMOGLOBIN 30.4 pg (27.0-31.0); MEAN CORPUSCULAR HGB CONC 34.5 g/dL (33.0-37.0); MEAN PLATELET VOLUME 8.1 fl (7.2-11.7); MONO # 0.9 K/uL (0.0-0.8); MONO % 10.9 % (0.0-10.0); NEUT # 6.3 K/uL (1.8-7.0); NEUT % 72.8 % (50.0-75.0); RBC 3.07 Mil/uL (4.40-5.90); RED CELL DISTRIBUTION WIDTH 13.4 % (11.5-14.5); WHITE BLOOD COUNT 8.7 K/uL (4.8-10.8)
[2017-12-04 07:06] LABS: CALCIUM 8.4 mg/dL (8.4-10.2)
[2017-12-04] MEDS: Insulin Lispro (humaLOG) 100 Units/ml Inj SC SCH ×3 (08:15→17:45)
[2017-12-04] MEDS: POLYETHYLENE GLYCOL 3350 17 GM/Dose PACKET PO SCH ×2 (08:52→17:47)
[2017-12-04] MEDS: Enoxaparin 40 mg Syringe SC SCH (08:52)
[2017-12-04] MEDS: Multivitamin With Minerals Tab PO SCH (08:53)
[2017-12-04] MEDS: Metoprolol Succinate 25 mg XL Tab PO SCH (08:54)
[2017-12-04] MEDS ORDERED: Pantoprazole 40 mg EC Tab PO SCH (09:00)
[2017-12-04] MEDS: oxyCODONE 10 mg ER Tab (oxyCONTIN) PO SCH (09:18)
--- NOTE | 2017-12-04 09:20 | CP.PCM.PN ---
Subjective - Date & Time of Evaluation Date of Evaluation: 12/04/17 Time of Evaluation: 09:00 - Subjective Subjective: GI Fellow PGY4 Progress Note Pt seen and evaluated at bedside, pt doing well and tolerating liquid diet, no abdominal pain, nausea or vomiting. +Flatus,no BM this am, reports multiple large BMs yesterday. ROS: A 12pt ROS was negative except as above Objective - Vital Signs/Intake and Output Vital Signs (last 24 hours): Temp Pulse Resp BP Pulse Ox 99.2 F 104 H 20 100/57 L 94 L 12/04/17 08:54 12/04/17 08:54 12/04/17 08:54 12/04/17 08:54 12/04/17 08:54 - Medications Medications: Current Medications Acetaminophen (Tylenol 325mg Tab) 325 mg PO Q4 PRN PRN Reason: pain1-3 Aspirin (Ecotrin) 81 mg PO DAILY [facility] Last Admin: 12/03/17 09:29 Dose: 81 mg Atorvastatin Calcium (Lipitor) 10 mg PO DAILY [facility] Last Admin: 12/03/17 09:30 Dose: 10 mg Celecoxib (Celebrex) 100 mg PO Q12 [facility] Stop: 01/12/18 09:01 Last Admin: 12/03/17 21:41 Dose: 100 mg Dextrose (Dextrose 50% Inj) 0 ml IV STAT PRN; Protocol PRN Reason: Hypoglycemia Protocol Dextrose (Glutose 15) 0 gm PO ONCE PRN; Protocol PRN Reason: Hypoglycemia Protocol Enoxaparin Sodium (Lovenox) 40 mg SC DAILY [facility] PRN Reason: Protocol Last Admin: 12/03/17 09:30 Dose: 40 mg Gabapentin (Neurontin) 300 mg PO TID [facility] Last Admin: 12/03/17 16:52 Dose: 300 mg Glucagon (Glucagen Diagnostic Kit) 0 mg IM STAT PRN; Protocol PRN Reason: Hypoglycemia Protocol Insulin Human Lispro (Humalog) 0 units SC ACTID [facility] PRN Reason: Protocol Last Admin: 12/03/17 16:57 Dose: 2 units Metformin HCl (Glucophage) 1,000 mg PO BIDWM [facility] Last Admin: 12/03/17 16:53 Dose: 1,000 mg Metoprolol Succinate (Toprol Xl) 25 mg PO DAILY [facility] Last Admin: 12/03/17 09:31 Dose: 25 mg Multivitamins/Minerals (Therapeutic-M Tab) 1 tab PO DAILY [facility] Last Admin: 12/03/17 09:30 Dose: 1 tab Oxycodone HCl (Oxycontin Extended Release Tab) 10 mg PO Q12 [facility] Stop: 12/15/17 09:01 Last Admin: 12/03/17 21:40 Dose: 10 mg Oxycodone/Acetaminophen (Percocet 5/325 Mg Tab) 1 tab PO Q4 PRN PRN Reason: pain4-7 Stop: 12/04/17 12:03 Pantoprazole Sodium (Protonix Ec Tab) 40 mg PO DAILY [facility] Polyethylene Glycol (Miralax) 17 gm PO BID [facility] Last Admin: 12/03/17 16:52 Dose: 17 gm Simethicone (Mylicon Chew Tab) 80 mg PO [facility] PRN PRN Reason: Flatulence Last Admin: 12/02/17 21:53 Dose: 80 mg Sitagliptin Phosphate (Januvia) 100 mg PO DAILY [facility] Last Admin: 12/03/17 09:30 Dose: Not Given Tamsulosin HCl (Flomax) 0.4 mg PO HS [facility] Last Admin: 12/03/17 21:40 Dose: 0.4 mg - Labs Labs: 12/04/17 05:57 12/04/17 05:57 PT 10.1 Seconds (9.8-13.1) 12/01/17 06:45 INR 0.9 (0.9-1.2) 12/01/17 06:45 APTT 28.7 Seconds (25.6-37.1) 12/01/17 06:45 - Constitutional Appears: Non-toxic - Head Exam Head Exam: ATRAUMATIC, NORMAL INSPECTION, NORMOCEPHALIC - Eye Exam Eye Exam: EOMI, Normal appearance, PERRL - ENT Exam ENT Exam: Mucous Membranes Moist, Normal Exam - Neck Exam Neck Exam: Full ROM, Normal Inspection - Respiratory Exam Respiratory Exam: Clear to Ausculation Bilateral, NORMAL BREATHING PATTERN - Cardiovascular Exam Cardiovascular Exam: REGULAR RHYTHM, +S1, +S2 - GI/Abdominal Exam GI & Abdominal Exam: Soft, Normal Bowel Sounds. absent: Firm, Guarding, Rigid, Tenderness, Organomegaly - Extremities Exam Extremities Exam: Normal Inspection - Back Exam Back Exam: NORMAL INSPECTION - Neurological Exam Neurological Exam: Alert, Awake, Oriented x3 - Psychiatric Exam Psychiatric exam: Normal Affect, Normal Mood - Skin Skin Exam: Dry, Intact, Normal Color, Warm Assessment and Plan - Assessment and Plan (Free Text) Assessment: This is a 77yM with hx of osteoarthritis of right knee admitted s/p RTKR. 1. Abdominal distention 2. Constipation 3. GERD 4. s/p RTKR Plan: -Continue supportive care with pain control and anti-emetics -Abdominal xrays reviewed showing gas, stool and mild small bowel distention -No clinical indication of SBO, constipation likely due to pain medication opioid and post surgical -Clinically improved with less distended abdomen -Continue bowel regimen with miralax bid -Continue protonix while on NSAIDs and lovenox and complaints of GERD -Will sign off please call with any questions or concerns Case discussed with Dr. Marte who agrees with above mentioned villaseñor of care.
[2017-12-04 10:04] LABS: CALCIUM 8.2 mg/dL (8.4-10.2)
[2017-12-04] MEDS ORDERED: Sod Polystyrene Sulf 15 gm/60 ml Susp PO ONE (11:27)
--- NOTE | 2017-12-04 11:28 | CP.PCM.PN ---
Subjective - Date & Time of Evaluation Date of Evaluation: 12/04/17 Time of Evaluation: 11:00 - Subjective Subjective: S/P RTKR POD#1 Pt seen and examined at bedside, comfortable in bed Pt c/o mild right knee pain, constipation and flatus Pt denies any SOB, chest pain, N/V/D, numbness/tingling to RLE Objective - Vital Signs/Intake and Output Vital Signs (last 24 hours): Temp Pulse Resp BP Pulse Ox 99.2 F 104 H 20 100/57 L 94 L 12/04/17 08:54 12/04/17 08:54 12/04/17 08:54 12/04/17 08:54 12/04/17 08:54 - Medications Medications: Current Medications Acetaminophen (Tylenol 325mg Tab) 325 mg PO Q4 PRN PRN Reason: pain1-3 Aspirin (Ecotrin) 81 mg PO DAILY [facility] Last Admin: 12/04/17 08:47 Dose: 81 mg Atorvastatin Calcium (Lipitor) 10 mg PO DAILY [facility] Last Admin: 12/04/17 08:51 Dose: 10 mg Celecoxib (Celebrex) 100 mg PO Q12 [facility] Stop: 01/12/18 09:01 Last Admin: 12/04/17 08:47 Dose: 100 mg Dextrose (Dextrose 50% Inj) 0 ml IV STAT PRN; Protocol PRN Reason: Hypoglycemia Protocol Dextrose (Glutose 15) 0 gm PO ONCE PRN; Protocol PRN Reason: Hypoglycemia Protocol Enoxaparin Sodium (Lovenox) 40 mg SC DAILY [facility] PRN Reason: Protocol Last Admin: 12/04/17 08:52 Dose: 40 mg Gabapentin (Neurontin) 300 mg PO TID [facility] Last Admin: 12/04/17 08:52 Dose: 300 mg Glucagon (Glucagen Diagnostic Kit) 0 mg IM STAT PRN; Protocol PRN Reason: Hypoglycemia Protocol Insulin Human Lispro (Humalog) 0 units SC ACTID [facility] PRN Reason: Protocol Last Admin: 12/04/17 08:15 Dose: Not Given Metformin HCl (Glucophage) 1,000 mg PO BIDWM [facility] Last Admin: 12/04/17 08:48 Dose: 1,000 mg Metoprolol Succinate (Toprol Xl) 25 mg PO DAILY [facility] Last Admin: 12/04/17 08:54 Dose: 25 mg Multivitamins/Minerals (Therapeutic-M Tab) 1 tab PO DAILY [facility] Last Admin: 12/04/17 08:53 Dose: 1 tab Oxycodone HCl (Oxycontin Extended Release Tab) 10 mg PO Q12 [facility] Stop: 12/15/17 09:01 Last Admin: 12/04/17 09:18 Dose: 10 mg Oxycodone/Acetaminophen (Percocet 5/325 Mg Tab) 1 tab PO Q4 PRN PRN Reason: pain4-7 Stop: 12/04/17 12:03 Pantoprazole Sodium (Protonix Ec Tab) 40 mg PO DAILY [facility] Last Admin: 12/04/17 08:53 Dose: 40 mg Polyethylene Glycol (Miralax) 17 gm PO BID [facility] Last Admin: 12/04/17 08:52 Dose: 17 gm Simethicone (Mylicon Chew Tab) 80 mg PO [facility] PRN PRN Reason: Flatulence Last Admin: 12/02/17 21:53 Dose: 80 mg Sitagliptin Phosphate (Januvia) 100 mg PO DAILY [facility] Last Admin: 12/04/17 08:50 Dose: 100 mg Tamsulosin HCl (Flomax) 0.4 mg PO HS [facility] Last Admin: 12/03/17 21:40 Dose: 0.4 mg - Labs Labs: 12/04/17 05:57 12/04/17 09:40 PT 10.1 Seconds (9.8-13.1) 12/01/17 06:45 INR 0.9 (0.9-1.2) 12/01/17 06:45 APTT 28.7 Seconds (25.6-37.1) 12/01/17 06:45 - Constitutional Appears: Well, No Acute Distress - Respiratory Exam Respiratory Exam: Clear to Ausculation Bilateral, NORMAL BREATHING PATTERN - Cardiovascular Exam Cardiovascular Exam: REGULAR RHYTHM, RRR - GI/Abdominal Exam GI & Abdominal Exam: Distended, Soft - Extremities Exam Additional comments: RLE: Knee wound C/D/I Calves soft and nontender b/l Normal ROM at ankle N/V intact distally Distal pulses wnl No foot drop Assessment and Plan - Assessment and Plan (Free Text) Assessment: 77 yo M s/p RTKR POD#3 Plan: GI consult noted and appreciated Abdominal xray neg for SBO, +mild distention Labs reviewed; h/h stable, elevated K+, trending down Kayexelate stat dose, IV fluids EKG stat F/U EKG and repeat labs Pain Control PT/OT WBAT RLE DVT ppx Continue current management Will continue to monitor Discussed with Dr. Diaz
[2017-12-04] MEDS ORDERED: Sodium Chloride 0.9% 1,000 ML IV SCH ×2 (11:45→11:49)
--- NOTE | 2017-12-04 13:21 | CP.PCM.PN ---
<Thony Hart - Last Filed: 12/04/17 13:18> Subjective - Date & Time of Evaluation Date of Evaluation: 12/04/17 Time of Evaluation: 10:30 - Subjective Subjective: Patient seen and examined this morning at bedside w/ Dr. Duran. There are no acute events overnight, NAD. The patient is tolerating physical therapy. Patient reports improvement w/ gas and is passing gas better now. Patient reported large bowel movement s/p fleet enema yesterday morning. The patient has no other complaints. The patient denies headaches, chest pain, SOB, abdominal pain, nausea, vomiting, dysuria, or fever. Objective - Vital Signs/Intake and Output Vital Signs (last 24 hours): Temp Pulse Resp BP Pulse Ox 99.2 F 98 H 20 100/57 L 95 12/04/17 08:54 12/04/17 10:15 12/04/17 08:54 12/04/17 08:54 12/04/17 10:15 - Medications Medications: Current Medications Acetaminophen (Tylenol 325mg Tab) 325 mg PO Q4 PRN PRN Reason: pain1-3 Aspirin (Ecotrin) 81 mg PO DAILY [facility] Last Admin: 12/04/17 08:47 Dose: 81 mg Atorvastatin Calcium (Lipitor) 10 mg PO DAILY [facility] Last Admin: 12/04/17 08:51 Dose: 10 mg Celecoxib (Celebrex) 100 mg PO Q12 [facility] Stop: 01/12/18 09:01 Last Admin: 12/04/17 08:47 Dose: 100 mg Dextrose (Dextrose 50% Inj) 0 ml IV STAT PRN; Protocol PRN Reason: Hypoglycemia Protocol Dextrose (Glutose 15) 0 gm PO ONCE PRN; Protocol PRN Reason: Hypoglycemia Protocol Enoxaparin Sodium (Lovenox) 40 mg SC DAILY [facility] PRN Reason: Protocol Last Admin: 12/04/17 08:52 Dose: 40 mg Gabapentin (Neurontin) 300 mg PO TID [facility] Last Admin: 12/04/17 08:52 Dose: 300 mg Glucagon (Glucagen Diagnostic Kit) 0 mg IM STAT PRN; Protocol PRN Reason: Hypoglycemia Protocol Sodium Chloride (Sodium Chloride 0.9%) 1,000 mls @ 80 mls/hr IV .[id number] [facility] Stop: 12/05/17 11:35 Last Admin: 12/04/17 12:49 Dose: 80 mls/hr Insulin Human Lispro (Humalog) 0 units SC ACTID [facility] PRN Reason: Protocol Last Admin: 12/04/17 12:00 Dose: 2 units Metformin HCl (Glucophage) 1,000 mg PO BIDWM [facility] Last Admin: 12/04/17 08:48 Dose: 1,000 mg Metoprolol Succinate (Toprol Xl) 25 mg PO DAILY [facility] Last Admin: 12/04/17 08:54 Dose: 25 mg Multivitamins/Minerals (Therapeutic-M Tab) 1 tab PO DAILY [facility] Last Admin: 12/04/17 08:53 Dose: 1 tab Oxycodone HCl (Oxycontin Extended Release Tab) 10 mg PO Q12 [facility] Stop: 12/15/17 09:01 Last Admin: 12/04/17 09:18 Dose: 10 mg Pantoprazole Sodium (Protonix Ec Tab) 40 mg PO DAILY [facility] Last Admin: 12/04/17 08:53 Dose: 40 mg Polyethylene Glycol (Miralax) 17 gm PO BID [facility] Last Admin: 12/04/17 08:52 Dose: 17 gm Simethicone (Mylicon Chew Tab) 80 mg PO [facility] PRN PRN Reason: Flatulence Last Admin: 12/02/17 21:53 Dose: 80 mg Sitagliptin Phosphate (Januvia) 100 mg PO DAILY [facility] Last Admin: 12/04/17 08:50 Dose: 100 mg Tamsulosin HCl (Flomax) 0.4 mg PO HS [facility] Last Admin: 12/03/17 21:40 Dose: 0.4 mg - Labs Labs: 12/04/17 05:57 12/04/17 09:40 PT 10.1 Seconds (9.8-13.1) 12/01/17 06:45 INR 0.9 (0.9-1.2) 12/01/17 06:45 APTT 28.7 Seconds (25.6-37.1) 12/01/17 06:45 - Constitutional Appears: Non-toxic, No Acute Distress - Head Exam Head Exam: ATRAUMATIC, NORMAL INSPECTION, NORMOCEPHALIC - Eye Exam Eye Exam: Normal appearance - ENT Exam ENT Exam: Mucous Membranes Moist - Neck Exam Neck Exam: Full ROM. absent: Tenderness - Respiratory Exam Respiratory Exam: Clear to Ausculation Bilateral. absent: Accessory Muscle Use , Decreased Breath Sounds, Rales, Rhonchi, Wheezes, Respiratory Distress - Cardiovascular Exam Cardiovascular Exam: REGULAR RHYTHM. absent: Tachycardia - GI/Abdominal Exam GI & Abdominal Exam: Distended (less distended compared to yesterday), Soft, Normal Bowel Sounds. absent: Tenderness - Extremities Exam Extremities Exam: absent: Calf Tenderness, Pedal Edema, Tenderness Additional comments: right leg wrapped in diana bandage, c/d/i - Neurological Exam Neurological Exam: Alert, Awake, Normal Gait (w/ assistance), Oriented x3 - Skin Skin Exam: Dry, Intact, Normal Color, Warm Assessment and Plan (1) Status post total right knee replacement Status: Acute (2) HTN (hypertension) Status: Chronic (3) Diabetes mellitus, type 2 Status: Chronic (4) CAD (coronary artery disease) Status: Chronic (5) Diabetic neuropathy Status: Chronic (6) HLD (hyperlipidemia) Status: Chronic - Assessment and Plan (Free Text) Plan: c/w present management c/w home medications afebrile, non-tachycardic, normotensive ortho recommendations appreciated GI recommendations appreciated CBC: 8.7>9.3/27.1<182 CMP: 124/5.3, 89/23, 19/1.5, glucose 178 abdominal XR: negative for small bowel obstruction IVF NS 1L @ 80 mL/h pain management: tylenol 325 mg PO Q4h prn (mild), toradal 15 mg IV Q8h, percocet 1 tab PO Q4h prn (moderate), oxycodone 10 mg PO Q12h protonix 40 mg PO daily insulin correction scale hypoglycemic protocol prophylactic measures: DVT lovenox 40 mg SC daily f/u CBC, BMP in AM encourage incentive spirometer c/w PT/OT monitor for acute changes <Anuel Duran - Last Filed: 12/05/17 22:22> Subjective - Subjective Subjective: I was present during evaluation and discussed with Dr Hart re plans of care and tx. Anuel Duran M.D. Objective - Vital Signs/Intake and Output Vital Signs (last 24 hours): Temp Pulse Resp BP Pulse Ox 100 F H 90 20 110/63 96 12/04/17 17:50 12/04/17 16:21 12/04/17 16:21 04/20/18 16:21 12/04/17 16:21 - Labs Labs: 12/04/17 05:57 12/04/17 09:40 PT 10.1 Seconds (9.8-13.1) 12/01/17 06:45 INR 0.9 (0.9-1.2) 12/01/17 06:45 APTT 28.7 Seconds (25.6-37.1) 12/01/17 06:45 Assessment and Plan (1) Status post total right knee replacement Status: Acute (2) CAD (coronary artery disease) Status: Chronic (3) Diabetes mellitus, type 2 Status: Chronic (4) HTN (hypertension) Status: Chronic (5) Constipation Status: Acute (6) Abdominal distention Status: Acute
--- NOTE | 2017-12-04 14:29 | CP.PCM.DIS ---
<Thony Hart - Last Filed: 12/04/17 14:26> Provider - Provider Date of Admission: 12/01/17 12:10 Attending physician: Anuel Duran MD Primary care physician: Melo Bailey MD Time Spent in preparation of Discharge (in minutes): 15 Diagnosis - Discharge Diagnosis (1) Status post total right knee replacement Status: Acute (2) HTN (hypertension) Status: Chronic (3) Diabetes mellitus, type 2 Status: Chronic (4) CAD (coronary artery disease) Status: Chronic (5) Diabetic neuropathy Status: Chronic (6) HLD (hyperlipidemia) Status: Chronic Hospital Course - Lab Results Lab Results: Most Recent Lab Values WBC 8.7 K/uL (4.8-10.8) 12/04/17 05:57 RBC 3.07 Mil/uL (4.40-5.90) L 12/04/17 05:57 Hgb 9.3 g/dL (12.0-18.0) L 12/04/17 05:57 Hct 27.1 % (35.0-51.0) L 12/04/17 05:57 MCV 88.1 fl (80.0-94.0) 12/04/17 05:57 MCH 30.4 pg (27.0-31.0) 12/04/17 05:57 MCHC 34.5 g/dL (33.0-37.0) 12/04/17 05:57 RDW 13.4 % (11.5-14.5) 12/04/17 05:57 Plt Count 182 K/uL (130-400) 12/04/17 05:57 MPV 8.1 fl (7.2-11.7) 12/04/17 05:57 Neut % (Auto) 72.8 % (50.0-75.0) 12/04/17 05:57 Lymph % (Auto) 14.4 % (20.0-40.0) L 12/04/17 05:57 [place] % (Auto) 10.9 % (0.0-10.0) H 12/04/17 05:57 Eos % (Auto) 1.6 % (0.0-4.0) 12/04/17 05:57 Baso % (Auto) 0.3 % (0.0-2.0) 12/04/17 05:57 Neut # (Auto) 6.3 K/uL (1.8-7.0) 12/04/17 05:57 Lymph # (Auto) 1.2 K/uL (1.0-4.3) 12/04/17 05:57 [place] # (Auto) 0.9 K/uL (0.0-0.8) H 12/04/17 05:57 Eos # (Auto) 0.1 K/uL (0.0-0.7) 12/04/17 05:57 Baso # (Auto) 0.0 K/uL (0.0-0.2) 12/04/17 05:57 PT 10.1 Seconds (9.8-13.1) 12/01/17 06:45 INR 0.9 (0.9-1.2) 12/01/17 06:45 APTT 28.7 Seconds (25.6-37.1) 12/01/17 06:45 Sodium 124 mmol/l (132-148) L 12/04/17 09:40 Potassium 5.3 MMOL/L (3.6-5.0) H 12/04/17 09:40 Chloride 89 mmol/L (98-107) L 12/04/17 09:40 Carbon Dioxide 23 mmol/L (22-30) 12/04/17 09:40 Anion Gap 17 (10-20) 12/04/17 09:40 BUN 19 mg/dl (9-20) 12/04/17 09:40 Creatinine 1.5 mg/dl (0.8-1.5) 12/04/17 09:40 Est GFR ( Amer) 55 12/04/17 09:40 Est GFR (Non-Af Amer) 46 12/04/17 09:40 POC Glucose (mg/dL) 188 mg/dL (65-110) H 12/04/17 11:08 Random Glucose 176 mg/dL (75-110) H 12/04/17 09:40 Hemoglobin A1c 7.2 % (4.2-6.5) H 12/02/17 12:13 Calcium 8.2 mg/dL (8.4-10.2) L 12/04/17 09:40 Triglycerides 191 mg/DL (0-149) H 12/02/17 12:13 Cholesterol 127 mg/dL (0-199) 12/02/17 12:13 LDL Cholesterol Direct 68 mg/dL (0-129) 12/02/17 12:13 HDL Cholesterol 30 MG/DL (30-70) 12/02/17 12:13 TSH 3rd Generation 4.94 mIU/ML (0.46-4.68) H 12/02/17 12:13 Blood Type A POSITIVE 12/01/17 06:45 Blood Type Confirm A POSITIVE 12/01/17 09:45 Antibody Screen Negative 12/01/17 06:45 Crossmatch See Detail 12/01/17 06:45 BBK History Checked No verified bt 12/01/17 06:45 - Hospital Course Hospital Course: 77 y/o man w/ pmh of HTN, CAD s/p cath stented 2006, NIDDM2, HLD, diabetic neuropathy, and severe osteoarthritis of the right knee is admitted s/p right total knee replacement. Patient is POD3. The patient tolerated procedure and is recovering appropriately. However, patient was found to be constipated, imaging showed potential small bowel obstruction. Patient was given lactulose and then an enema which resulted in a large bowel movement. Repeat abdominal XR was negative for small bowel obstruction. The patients repeat blood work showed hyponatremia and hyperkalemia most likely s/p enema. Patient reports feeling better and passing gas. Patient is tolerating PT. The patient has been seen, examined, and deemed medically fit for discharge to rehabilitation facility for further physical therapy. Discharge Exam - Head Exam Head Exam: ATRAUMATIC, NORMAL INSPECTION, NORMOCEPHALIC - Eye Exam Eye Exam: Normal appearance - ENT Exam ENT Exam: Mucous Membranes Moist - Neck Exam Neck exam: Full Rom - Respiratory Exam Respiratory Exam: Clear to PA & Lateral. absent: Accessory Muscle Use, Decreased Breath Sounds, Rales, Rhonchi, Wheezes, Respiratory Distress - Cardiovascular Exam Cardiovascular Exam: REGULAR RHYTHM. absent: Tachycardia - GI/Abdominal Exam GI & Abdominal Exam: Distended (less compared to yesterday), Normal Bowel Sounds , Soft. absent: Tenderness - Extremities Exam Additional comments: right leg wrapped in diana wrap, c/d/i - Neurological Exam Neurological exam: Alert, Normal Gait (w/ assistance), Oriented x3 - Skin Skin Exam: Dry, Intact, Normal Color, Warm Discharge Plan - Follow Up Plan Condition: GOOD Disposition: REHAB FACILITY/REHAB UNIT Instructions: Total Knee Replacement , Total Knee Replacement (DC) Referrals: Melo Bailey MD [Primary Care Provider] - <Anuel Duran - Last Filed: 12/05/17 22:23> Provider - Provider Date of Admission: 12/01/17 12:10 Attending physician: Anuel Duran MD Primary care physician: Melo Bailey MD Diagnosis - Discharge Diagnosis (1) Status post total right knee replacement Status: Acute (2) CAD (coronary artery disease) Status: Chronic (3) Diabetes mellitus, type 2 Status: Chronic (4) HTN (hypertension) Status: Chronic (5) Constipation Status: Acute (6) Abdominal distention Status: Acute Hospital Course - Lab Results Lab Results: Most Recent Lab Values WBC 8.7 K/uL (4.8-10.8) 12/04/17 05:57 RBC 3.07 Mil/uL (4.40-5.90) L 12/04/17 05:57 Hgb 9.3 g/dL (12.0-18.0) L 12/04/17 05:57 Hct 27.1 % (35.0-51.0) L 12/04/17 05:57 MCV 88.1 fl (80.0-94.0) 12/04/17 05:57 MCH 30.4 pg (27.0-31.0) 12/04/17 05:57 MCHC 34.5 g/dL (33.0-37.0) 12/04/17 05:57 RDW 13.4 % (11.5-14.5) 12/04/17 05:57 Plt Count 182 K/uL (130-400) 12/04/17 05:57 MPV 8.1 fl (7.2-11.7) 12/04/17 05:57 Neut % (Auto) 72.8 % (50.0-75.0) 12/04/17 05:57 Lymph % (Auto) 14.4 % (20.0-40.0) L 12/04/17 05:57 [place] % (Auto) 10.9 % (0.0-10.0) H 12/04/17 05:57 Eos % (Auto) 1.6 % (0.0-4.0) 12/04/17 05:57 Baso % (Auto) 0.3 % (0.0-2.0) 12/04/17 05:57 Neut # (Auto) 6.3 K/uL (1.8-7.0) 12/04/17 05:57 Lymph # (Auto) 1.2 K/uL (1.0-4.3) 12/04/17 05:57 [place] # (Auto) 0.9 K/uL (0.0-0.8) H 12/04/17 05:57 Eos # (Auto) 0.1 K/uL (0.0-0.7) 12/04/17 05:57 Baso # (Auto) 0.0 K/uL (0.0-0.2) 12/04/17 05:57 PT 10.1 Seconds (9.8-13.1) 12/01/17 06:45 INR 0.9 (0.9-1.2) 12/01/17 06:45 APTT 28.7 Seconds (25.6-37.1) 12/01/17 06:45 Sodium 124 mmol/l (132-148) L 12/04/17 09:40 Potassium 5.3 MMOL/L (3.6-5.0) H 12/04/17 09:40 Chloride 89 mmol/L (98-107) L 12/04/17 09:40 Carbon Dioxide 23 mmol/L (22-30) 12/04/17 09:40 Anion Gap 17 (10-20) 12/04/17 09:40 BUN 19 mg/dl (9-20) 12/04/17 09:40 Creatinine 1.5 mg/dl (0.8-1.5) 12/04/17 09:40 Est GFR ( Amer) 55 12/04/17 09:40 Est GFR (Non-Af Amer) 46 12/04/17 09:40 POC Glucose (mg/dL) 167 mg/dL (65-110) H 12/04/17 16:32 Random Glucose 176 mg/dL (75-110) H 12/04/17 09:40 Hemoglobin A1c 7.2 % (4.2-6.5) H 12/02/17 12:13 Serum Osmolality 274 mosm/kg (272-300) 12/04/17 14:51 Calcium 8.2 mg/dL (8.4-10.2) L 12/04/17 09:40 Triglycerides 191 mg/DL (0-149) H 12/02/17 12:13 Cholesterol 127 mg/dL (0-199) 12/02/17 12:13 LDL Cholesterol Direct 68 mg/dL (0-129) 12/02/17 12:13 HDL Cholesterol 30 MG/DL (30-70) 12/02/17 12:13 TSH 3rd Generation 4.94 mIU/ML (0.46-4.68) H 12/02/17 12:13 Blood Type A POSITIVE 12/01/17 06:45 Blood Type Confirm A POSITIVE 12/01/17 09:45 Antibody Screen Negative 12/01/17 06:45 Crossmatch See Detail 12/01/17 06:45 BBK History Checked No verified bt 12/01/17 06:45
[2017-12-04 16:22] VITALS: BP 110/63; PULSE 90; TEMP 100; O2SAT 96
--- NOTE | 2017-12-05 11:32 | CARD ---
APPROVED REPORT EKG Measurement Heart [id number] [id number] <Conclusion> Normal sinus rhythm Low voltage QRS Borderline ECG
== END 2017-12-04 18:31 | DRG 470 ==
LOC: H.OPSURG 06:17 → H.MEDSURG1 12:10
PROVIDERS: ADMIT Family Medicine; ATTEND Family Medicine
PROC: 0SRC0J9 Replacement of Right Knee Joint with Synthetic Substitute, Cemented, Open Approach (ICD-10-PCS; principal; 2017-12-01 09:45)
DX: M17.11 Unilateral primary osteoarthritis, right knee (principal); E87.1 Hypo-osmolality and hyponatremia; E87.5 Hyperkalemia; I25.10 Atherosclerotic heart disease of native coronary artery without angina pectoris; E11.40 Type 2 diabetes mellitus with diabetic neuropathy, unspecified; K59.09 Other constipation; I10 Essential (primary) hypertension; K21.9 Gastro-esophageal reflux disease without esophagitis; R14.0 Abdominal distension (gaseous); E78.5 Hyperlipidemia, unspecified; E78.00 Pure hypercholesterolemia, unspecified; Z79.84 Long term (current) use of oral hypoglycemic drugs

== ENCOUNTER 2017-12-04 16:07 | Inpatient (IN) | payer MEDICARE ==
[2017-11-30 08:14] VITALS: BMI 26.5
[2017-12-04] MEDS ORDERED: Dextrose 50% SYRINGE Inj (50 ml) IV PRN ×2 (19:13→19:21)
[2017-12-04] MEDS ORDERED: Glucagon Recombinant 1 mg Inj IM PRN ×2 (19:13→19:21)
[2017-12-04] MEDS ORDERED: Simethicone 80 mg Chewtab PO PRN (19:13)
[2017-12-04] MEDS: Sodium Chloride 0.9% 1,000 ML IV SCH (20:00)
[2017-12-04] MEDS: oxyCODONE 10 mg ER Tab (oxyCONTIN) PO SCH (21:39)
[2017-12-04] MEDS: Insulin Regular 100 units/ml SC SCH (22:41)
[2017-12-05] MEDS: Insulin Regular 100 units/ml SC SCH ×4 (06:52→21:58)
[2017-12-05 07:41] LABS: HEMOGLOBIN 8.9 g/dL (12.0-18.0); MEAN CELL VOLUME 88.5 fl (80.0-94.0); MEAN CORPUSCULAR HGB CONC 33.9 g/dL (33.0-37.0); RBC 2.97 Mil/uL (4.40-5.90); RED CELL DISTRIBUTION WIDTH 13.2 % (11.5-14.5); WHITE BLOOD COUNT 6.3 K/uL (4.8-10.8)
[2017-12-05 07:46] LABS: BLOOD UREA NITROGEN 19 mg/dl (9-20); CALCIUM 8.1 mg/dL (8.4-10.2); GFR AFRICAN-AMERICAN > 60; GFR NON-AFRICAN AMERICAN 54
[2017-12-05 08:57] VITALS: RESP 20
[2017-12-05] MEDS: POLYETHYLENE GLYCOL 3350 17 GM/Dose PACKET PO SCH ×2 (08:59→17:04)
[2017-12-05] MEDS: Enoxaparin 40 mg Syringe SC SCH (09:00)
[2017-12-05] MEDS: Multivitamin With Minerals Tab PO SCH (09:00)
[2017-12-05] MEDS: oxyCODONE 10 mg ER Tab (oxyCONTIN) PO SCH ×2 (09:00→20:29)
[2017-12-05] MEDS: Pantoprazole 40 mg EC Tab PO SCH (09:01)
[2017-12-05] MEDS: Metoprolol Succinate 25 mg XL Tab PO SCH (09:02)
[2017-12-05] MEDS: Sodium Chloride 0.9% 1,000 ML IV SCH (09:03)
[2017-12-05] MEDS ORDERED: oxyCODONE 10 mg ER Tab (oxyCONTIN) PO PRN (12:03)
--- NOTE | 2017-12-05 22:31 | CP.PCM.HP ---
History of Present Illness - History of Present Illness History of Present Illness: This is a 77 y/o male admitted for further Phys therapy after a right TKR. He devloped severe constipation post op and noted anemia. He was started on phys therapy but had problems with gait and balance and weight bearing hence was discharged to subacute rehab for further phys therapy. Present on Admission - Present on Admission Any Indicators Present on Admission: No History of DVT/PE: No History of Uncontrolled Diabetes: No Urinary Catheter: No Decubitus Ulcer Present: No Review of Systems - Musculoskeletal Musculoskeletal: Abnormal Gait, Arthralgias Past Patient History - Past Medical History & Family History Past Medical History?: Yes - Past Social History Smoking Status: Never Smoked - CARDIAC Hx Cardiac Disorders: Yes Hx Hypercholesterolemia: Yes Hx Hypertension: Yes - PULMONARY Hx Respiratory Disorders: No - NEUROLOGICAL Hx Neurological Disorder: No - HEENT Hx HEENT Problems: Yes - RENAL Hx Chronic Kidney Disease: No - ENDOCRINE/METABOLIC Hx Diabetes Mellitus Type 2: Yes - HEMATOLOGICAL/ONCOLOGICAL Hx Blood Disorders: No - INTEGUMENTARY Hx Dermatological Problems: No - MUSCULOSKELETAL/RHEUMATOLOGICAL Hx Arthritis: Yes Hx Falls: No - GASTROINTESTINAL Hx Gastrointestinal Disorders: No - GENITOURINARY/GYNECOLOGICAL Hx Genitourinary Disorders: No - PSYCHIATRIC Hx Psychophysiologic Disorder: No - SURGICAL HISTORY Hx Surgeries: No Hx Joint Replacement: Yes (right tkr 12/01) - ANESTHESIA Hx Anesthesia: No Hx Anesthesia Reactions: No Hx Malignant Hyperthermia: No Meds Allergies/Adverse Reactions: Allergies Allergy/AdvReac Type Severity Reaction Status Date / Time No Known Allergies Allergy Verified 12/04/17 18:14 Physical Exam - Head Exam Head Exam: NORMAL INSPECTION - Eye Exam Eye Exam: Normal appearance - Respiratory Exam Respiratory Exam: Clear to Auscultation Bilateral, NORMAL BREATHING PATTERN - Cardiovascular Exam Cardiovascular Exam: REGULAR RHYTHM - GI/Abdominal Exam GI & Abdominal Exam: Distended - Extremities Exam Additional comments: wound right knee clean and no purulence - Neurological Exam Neurological exam: CN II-XII Intact, Oriented x3 - Psychiatric Exam Psychiatric exam: Normal Mood Results - Vital Signs Recent Vital Signs: Last Vital Signs Temp 99.4 F 12/05/17 20:21 Pulse 89 12/05/17 20:21 Resp 20 12/05/17 20:21 BP 98/65 L 12/05/17 20:21 Pulse Ox 98 12/05/17 20:21 - Labs Result Diagrams: 12/07/17 06:00 12/07/17 06:00 Labs: Laboratory Results - last 24 hr 12/05/17 12/05/17 12/05/17 06:09 07:00 07:00 WBC 6.3 RBC 2.97 L Hgb 8.9 L Hct 26.2 L MCV 88.5 MCH 30.0 MCHC 33.9 RDW 13.2 Plt Count 234 Sodium 130 L Potassium 4.6 Chloride 94 L Carbon Dioxide 24 Anion Gap 17 BUN 19 Creatinine 1.3 Est GFR ( Amer) > 60 Est GFR (Non-Af Amer) 54 POC Glucose (mg/dL) 168 H Random Glucose 168 H Calcium 8.1 L 12/05/17 12/05/17 12/05/17 11:04 16:21 20:43 WBC RBC Hgb Hct MCV MCH MCHC RDW Plt Count Sodium Potassium Chloride Carbon Dioxide Anion Gap BUN Creatinine Est GFR ( Amer) Est GFR (Non-Af Amer) POC Glucose (mg/dL) 201 H 136 H 138 H Random Glucose Calcium Assessment & Plan (1) Gait difficulty Status: Acute (2) Abdominal distention Status: Acute (3) Constipation Status: Acute (4) Status post total right knee replacement Status: Acute (5) Diabetes mellitus, type 2 Status: Chronic - Assessment and Plan (Free Text) Plan: start PTT Pain meds stool softener check labs adjust po meds for DM 2
[2017-12-06] MEDS ORDERED: Oxycodone/Acetaminophen 5/325 mg Tab PO STA (01:07)
[2017-12-06] MEDS: Insulin Regular 100 units/ml SC SCH ×4 (07:01→21:35)
[2017-12-06 07:36] LABS: IRON 48 ug/dL (49-181)
[2017-12-06 07:46] LABS: % IRON SATURATION 17 % (20-55); TOTAL IRON BINDING CAPACITY 277 ug/dL (250-450)
[2017-12-06 07:58] LABS: FERRITIN 82.9 ng/Ml (17.9-464)
[2017-12-06] MEDS: Metoprolol Succinate 25 mg XL Tab PO SCH (08:39)
[2017-12-06] MEDS: Multivitamin With Minerals Tab PO SCH (08:40)
[2017-12-06] MEDS: Enoxaparin 40 mg Syringe SC SCH (08:41)
[2017-12-06] MEDS: POLYETHYLENE GLYCOL 3350 17 GM/Dose PACKET PO SCH ×2 (08:41→16:45)
[2017-12-06] MEDS: Pantoprazole 40 mg EC Tab PO SCH (08:43)
[2017-12-06] MEDS: oxyCODONE 10 mg ER Tab (oxyCONTIN) PO SCH ×2 (08:43→21:36)
--- NOTE | 2017-12-06 23:53 | CP.PCM.PN ---
Subjective - Date & Time of Evaluation Date of Evaluation: 12/06/17 Time of Evaluation: 12:20 - Subjective Subjective: Patient remains stable Has no chest pain Had a lot of bm yesterday Doing well with PT Objective - Vital Signs/Intake and Output Vital Signs (last 24 hours): Temp Pulse Resp BP Pulse Ox 98.1 F 85 20 154/83 H 96 12/06/17 10:00 12/06/17 10:00 12/06/17 10:00 12/06/17 10:00 12/06/17 10:00 - Medications Medications: Current Medications Acetaminophen (Tylenol 325mg Tab) 325 mg PO Q4 PRN PRN Reason: pain1-3 Aspirin (Ecotrin) 81 mg PO DAILY [facility] Last Admin: 12/06/17 08:40 Dose: 81 mg Atorvastatin Calcium (Lipitor) 10 mg PO DAILY [facility] Last Admin: 12/06/17 08:41 Dose: 10 mg Celecoxib (Celebrex) 100 mg PO Q12 [facility] Last Admin: 12/06/17 21:34 Dose: 100 mg Dextrose (Dextrose 50% Inj) 0 ml IV STAT PRN; Protocol PRN Reason: Hypoglycemia Protocol Dextrose (Glutose 15) 0 gm PO ONCE PRN; Protocol PRN Reason: Hypoglycemia Protocol Dextrose (Dextrose 50% Inj) 0 ml IV STAT PRN; Protocol PRN Reason: Hypoglycemia Protocol Dextrose (Glutose 15) 0 gm PO ONCE PRN; Protocol PRN Reason: Hypoglycemia Protocol Enoxaparin Sodium (Lovenox) 40 mg SC DAILY [facility] PRN Reason: Protocol Last Admin: 12/06/17 08:41 Dose: 40 mg Ferrous Sulfate (Feosol) 325 mg PO DAILY [facility] Last Admin: 12/06/17 08:40 Dose: 325 mg Gabapentin (Neurontin) 300 mg PO Q12 [facility] Last Admin: 12/06/17 21:35 Dose: 300 mg Glucagon (Glucagen Diagnostic Kit) 0 mg IM STAT PRN; Protocol PRN Reason: Hypoglycemia Protocol Glucagon (Glucagen Diagnostic Kit) 0 mg IM STAT PRN; Protocol PRN Reason: Hypoglycemia Protocol Insulin Human Regular (Humulin R) [address] [facility] PRN Reason: Protocol Last Admin: 12/06/17 21:35 Dose: Not Given Metoprolol Succinate (Toprol Xl) 25 mg PO DAILY [facility] Last Admin: 12/06/17 08:39 Dose: 25 mg Multivitamins/Minerals (Therapeutic-M Tab) 1 tab PO DAILY [facility] Last Admin: 12/06/17 08:40 Dose: 1 tab Oxycodone HCl (Oxycontin Extended Release Tab) 10 mg PO Q12 [facility] Stop: 12/08/17 21:01 Last Admin: 12/06/17 21:36 Dose: 10 mg Pantoprazole Sodium (Protonix Ec Tab) 40 mg PO DAILY [facility] Last Admin: 12/06/17 08:43 Dose: 40 mg Polyethylene Glycol (Miralax) 17 gm PO BID [facility] Last Admin: 12/06/17 16:45 Dose: 17 gm Simethicone (Mylicon Chew Tab) 80 mg PO [facility] PRN PRN Reason: Flatulence Last Admin: 12/06/17 21:42 Dose: 80 mg Sitagliptin Phosphate (Januvia) 100 mg PO DAILY [facility] Last Admin: 12/06/17 08:40 Dose: 100 mg Tamsulosin HCl (Flomax) 0.4 mg PO HS [facility] Last Admin: 12/06/17 21:34 Dose: 0.4 mg - Labs Labs: 12/05/17 07:00 12/05/17 07:00 - Head Exam Head Exam: NORMAL INSPECTION - Eye Exam Eye Exam: Normal appearance - ENT Exam ENT Exam: Mucous Membranes Moist - Respiratory Exam Respiratory Exam: Clear to Ausculation Bilateral - Cardiovascular Exam Cardiovascular Exam: REGULAR RHYTHM - GI/Abdominal Exam GI & Abdominal Exam: Normal Bowel Sounds - Neurological Exam Neurological Exam: Awake, Oriented x3 - Psychiatric Exam Psychiatric exam: Normal Mood Assessment and Plan (1) Gait difficulty Status: Acute (2) Constipation Status: Acute (3) Status post total right knee replacement Status: Acute (4) Diabetes mellitus, type 2 Status: Chronic - Assessment and Plan (Free Text) Plan: Cont meds cont tx cont PT pain meds prn wound care
[2017-12-07 06:53] LABS: HEMOGLOBIN 9.6 g/dL (12.0-18.0); MEAN CELL VOLUME 87.4 fl (80.0-94.0); MEAN CORPUSCULAR HGB CONC 35.5 g/dL (33.0-37.0); RBC 3.09 Mil/uL (4.40-5.90); RED CELL DISTRIBUTION WIDTH 13.5 % (11.5-14.5); WHITE BLOOD COUNT 7.6 K/uL (4.8-10.8)
[2017-12-07] MEDS: Insulin Regular 100 units/ml SC SCH ×4 (07:04→21:55)
[2017-12-07 07:30] LABS: BLOOD UREA NITROGEN 14 mg/dl (9-20); CALCIUM 8.8 mg/dL (8.4-10.2); GFR AFRICAN-AMERICAN > 60; GFR NON-AFRICAN AMERICAN 59
[2017-12-07] MEDS: POLYETHYLENE GLYCOL 3350 17 GM/Dose PACKET PO SCH ×2 (08:37→16:20)
[2017-12-07] MEDS: Multivitamin With Minerals Tab PO SCH (08:37)
[2017-12-07] MEDS: Pantoprazole 40 mg EC Tab PO SCH (08:37)
[2017-12-07] MEDS: Metoprolol Succinate 25 mg XL Tab PO SCH (08:38)
[2017-12-07] MEDS: oxyCODONE 10 mg ER Tab (oxyCONTIN) PO SCH ×2 (08:38→21:24)
[2017-12-07] MEDS: Enoxaparin 40 mg Syringe SC SCH (08:39)
--- NOTE | 2017-12-07 09:18 | CP.PCM.PN ---
Subjective - Date & Time of Evaluation Date of Evaluation: 12/07/17 Time of Evaluation: 09:18 - Subjective Subjective: Patient was seen and examined at bedside comfortable. Pain well controlled. Tolerating CPM well. No new complaints. Objective - Vital Signs/Intake and Output Vital Signs (last 24 hours): Temp Pulse Resp BP Pulse Ox 98.2 F 84 20 135/69 98 12/07/17 07:54 12/07/17 08:38 12/07/17 07:54 12/07/17 08:38 12/07/17 07:54 - Medications Medications: Current Medications Acetaminophen (Tylenol 325mg Tab) 325 mg PO Q4 PRN PRN Reason: pain1-3 Aspirin (Ecotrin) 81 mg PO DAILY [facility] Last Admin: 12/07/17 08:37 Dose: 81 mg Atorvastatin Calcium (Lipitor) 10 mg PO DAILY@2100 [facility] Celecoxib (Celebrex) 100 mg PO Q12 [facility] Last Admin: 12/07/17 08:38 Dose: 100 mg Dextrose (Dextrose 50% Inj) 0 ml IV STAT PRN; Protocol PRN Reason: Hypoglycemia Protocol Dextrose (Glutose 15) 0 gm PO ONCE PRN; Protocol PRN Reason: Hypoglycemia Protocol Dextrose (Dextrose 50% Inj) 0 ml IV STAT PRN; Protocol PRN Reason: Hypoglycemia Protocol Dextrose (Glutose 15) 0 gm PO ONCE PRN; Protocol PRN Reason: Hypoglycemia Protocol Enoxaparin Sodium (Lovenox) 40 mg SC DAILY [facility] PRN Reason: Protocol Last Admin: 12/07/17 08:39 Dose: 40 mg Ferrous Sulfate (Feosol) 325 mg PO DAILY [facility] Last Admin: 12/07/17 08:37 Dose: 325 mg Gabapentin (Neurontin) 300 mg PO Q12 [facility] Last Admin: 12/07/17 08:38 Dose: 300 mg Glucagon (Glucagen Diagnostic Kit) 0 mg IM STAT PRN; Protocol PRN Reason: Hypoglycemia Protocol Glucagon (Glucagen Diagnostic Kit) 0 mg IM STAT PRN; Protocol PRN Reason: Hypoglycemia Protocol Insulin Human Regular (Humulin R) 0 units SC [facility] PRN Reason: Protocol Last Admin: 12/07/17 07:04 Dose: 2 u Metformin HCl (Glucophage) 500 mg PO BIDWM [facility] Last Admin: 12/07/17 08:37 Dose: 500 mg Metoprolol Succinate (Toprol Xl) 25 mg PO DAILY [facility] Last Admin: 12/07/17 08:38 Dose: 25 mg Multivitamins/Minerals (Therapeutic-M Tab) 1 tab PO DAILY [facility] Last Admin: 12/07/17 08:37 Dose: 1 tab Oxycodone HCl (Oxycontin Extended Release Tab) 10 mg PO Q12 [facility] Stop: 12/08/17 21:01 Last Admin: 12/07/17 08:38 Dose: 10 mg Pantoprazole Sodium (Protonix Ec Tab) 40 mg PO DAILY@0630 [facility] Polyethylene Glycol (Miralax) 17 gm PO BID [facility] Last Admin: 12/07/17 08:37 Dose: 17 gm Simethicone (Mylicon Chew Tab) 80 mg PO [facility] PRN PRN Reason: Flatulence Last Admin: 12/06/17 21:42 Dose: 80 mg Sitagliptin Phosphate (Januvia) 100 mg PO DAILY [facility] Last Admin: 12/07/17 08:38 Dose: 100 mg Tamsulosin HCl (Flomax) 0.4 mg PO HS [facility] Last Admin: 12/06/17 21:34 Dose: 0.4 mg - Labs Labs: 12/07/17 06:00 12/07/17 06:00 - Extremities Exam Additional comments: R knee: Dressings CDI, wound CDI with adrien, no drainage Sensation intact SP/DP/TN motor intact EHL/FHL/TA/G pedal pulses intact comp soft NT Assessment and Plan (1) Status post total right knee replacement Assessment & Plan: POD# s/p R TKA doing well -PT/OT -DVT ppx -dressings changed, changed every 2-3 days -above d/w Dr. Diaz in agreement Status: Acute
--- NOTE | 2017-12-07 18:04 | CP.PCM.CON ---
History of Present Illness - History of Present Illness History of Present Illness: Dr. Mccollum PMR consultation on Teofilo Bailey, born 1940, who has been admitted to [facility] TCU for DEEPAK following a right TKR by Dr Diaz. Feeling good at this point. + Constipation. Also has left knee DJD and will need a TKR there as well in the future. Review of Systems - Constitutional Constitutional: absent: Anorexia, Chills - EENT Eyes: absent: Change in Vision Ears: absent: Decreased Hearing, Ear Discharge Nose/Mouth/Throat: absent: Nasal Congestion - Cardiovascular Cardiovascular: absent: Chest Pain - Respiratory Respiratory: absent: Dyspnea, Wheezing - Gastrointestinal Gastrointestinal: Bloating, Constipation - Musculoskeletal Musculoskeletal: Abnormal Gait, Muscle Cramps - Integumentary Integumentary: absent: Bleeding Lesions (has a right TKR cover dressing with no strike through) - Neurological Neurological: absent: Abnormal Movements, Paresthesias Past Patient History - Past Medical History & Family History Past Medical History?: Yes - Past Social History Smoking Status: Never Smoked Alcohol: None Drugs: Denies Home Situation {Lives}: With Family (3rd floor walk up) - CARDIAC Hx Cardiac Disorders: Yes Hx Hypercholesterolemia: Yes Hx Hypertension: Yes - PULMONARY Hx Respiratory Disorders: No - NEUROLOGICAL Hx Neurological Disorder: No - HEENT Hx HEENT Problems: Yes - RENAL Hx Chronic Kidney Disease: No - ENDOCRINE/METABOLIC Hx Diabetes Mellitus Type 2: Yes - HEMATOLOGICAL/ONCOLOGICAL Hx Blood Disorders: No - INTEGUMENTARY Hx Dermatological Problems: No - MUSCULOSKELETAL/RHEUMATOLOGICAL Hx Arthritis: Yes Hx Falls: No - GASTROINTESTINAL Hx Gastrointestinal Disorders: No - GENITOURINARY/GYNECOLOGICAL Hx Genitourinary Disorders: No - PSYCHIATRIC Hx Psychophysiologic Disorder: No - SURGICAL HISTORY Hx Surgeries: No Hx Joint Replacement: Yes (right tkr 12/01) - ANESTHESIA Hx Anesthesia: No Hx Anesthesia Reactions: No Hx Malignant Hyperthermia: No Meds Allergies/Adverse Reactions: Allergies Allergy/AdvReac Type Severity Reaction Status Date / Time No Known Allergies Allergy Verified 12/04/17 18:14 - Medications Medications: Current Medications Acetaminophen (Tylenol 325mg Tab) 650 mg PO Q4 PRN PRN Reason: pain1-3 Last Admin: 12/07/17 13:58 Dose: 650 mg Aspirin (Ecotrin) 81 mg PO DAILY [facility] Last Admin: 12/07/17 08:37 Dose: 81 mg Atorvastatin Calcium (Lipitor) 10 mg PO DAILY@2100 [facility] Celecoxib (Celebrex) 100 mg PO Q12 [facility] Last Admin: 12/07/17 08:38 Dose: 100 mg Dextrose (Dextrose 50% Inj) 0 ml IV STAT PRN; Protocol PRN Reason: Hypoglycemia Protocol Dextrose (Glutose 15) 0 gm PO ONCE PRN; Protocol PRN Reason: Hypoglycemia Protocol Dextrose (Dextrose 50% Inj) 0 ml IV STAT PRN; Protocol PRN Reason: Hypoglycemia Protocol Dextrose (Glutose 15) 0 gm PO ONCE PRN; Protocol PRN Reason: Hypoglycemia Protocol Enoxaparin Sodium (Lovenox) 40 mg SC DAILY [facility] PRN Reason: Protocol Last Admin: 12/07/17 08:39 Dose: 40 mg Ferrous Sulfate (Feosol) 325 mg PO DAILY [facility] Last Admin: 12/07/17 08:37 Dose: 325 mg Gabapentin (Neurontin) 300 mg PO Q12 [facility] Last Admin: 12/07/17 08:38 Dose: 300 mg Glucagon (Glucagen Diagnostic Kit) 0 mg IM STAT PRN; Protocol PRN Reason: Hypoglycemia Protocol Glucagon (Glucagen Diagnostic Kit) 0 mg IM STAT PRN; Protocol PRN Reason: Hypoglycemia Protocol Insulin Human Regular (Humulin R) 0 units SC [facility] PRN Reason: Protocol Last Admin: 12/07/17 16:20 Dose: 2 u Metformin HCl (Glucophage) 500 mg PO BIDWM [facility] Last Admin: 12/07/17 16:20 Dose: 500 mg Metoprolol Succinate (Toprol Xl) 25 mg PO DAILY [facility] Last Admin: 12/07/17 08:38 Dose: 25 mg Multivitamins/Minerals (Therapeutic-M Tab) 1 tab PO DAILY [facility] Last Admin: 12/07/17 08:37 Dose: 1 tab Oxycodone HCl (Oxycontin Extended Release Tab) 10 mg PO Q12 [facility] Stop: 12/08/17 21:01 Last Admin: 12/07/17 08:38 Dose: 10 mg Pantoprazole Sodium (Protonix Ec Tab) 40 mg PO DAILY@0630 [facility] Polyethylene Glycol (Miralax) 17 gm PO BID [facility] Last Admin: 12/07/17 16:20 Dose: 17 gm Simethicone (Mylicon Chew Tab) 80 mg PO [facility] PRN PRN Reason: Flatulence Last Admin: 12/06/17 21:42 Dose: 80 mg Sitagliptin Phosphate (Januvia) 100 mg PO DAILY [facility] Last Admin: 12/07/17 08:38 Dose: 100 mg Tamsulosin HCl (Flomax) 0.4 mg PO HS [facility] Last Admin: 12/06/17 21:34 Dose: 0.4 mg Physical Exam - Constitutional Appears: No Acute Distress (on CPM machine) - Head Exam Head Exam: ATRAUMATIC, NORMAL INSPECTION, NORMOCEPHALIC - Eye Exam Eye Exam: EOMI, Normal appearance - ENT Exam ENT Exam: Mucous Membranes Moist - Respiratory Exam Respiratory Exam: NORMAL BREATHING PATTERN - Cardiovascular Exam Cardiovascular Exam: REGULAR RHYTHM - GI/Abdominal Exam GI & Abdominal Exam: Distended. absent: Firm - Extremities Exam Extremities exam: Negative for: calf tenderness - Neurological Exam Neurological exam: Alert, CN II-XII Intact, Oriented x3 - Psychiatric Exam Psychiatric exam: Normal Affect, Normal Mood - Skin Skin Exam: Warm Results - Vital Signs Recent Vital Signs: Last Vital Signs Temp 97.2 F L 12/07/17 16:09 Pulse 91 H 12/07/17 16:09 Resp 20 12/07/17 16:09 BP 102/57 L 12/07/17 16:09 Pulse Ox 98 12/07/17 16:09 - Labs Result Diagrams: 12/07/17 06:00 12/07/17 06:00 Labs: Laboratory Results - last 24 hr 12/06/17 12/06/17 12/07/17 16:21 20:22 05:17 WBC RBC Hgb Hct MCV MCH MCHC RDW Plt Count Sodium Potassium Chloride Carbon Dioxide Anion Gap BUN Creatinine Est GFR ( Amer) Est GFR (Non-Af Amer) POC Glucose (mg/dL) 143 H 195 H 160 H Random Glucose Calcium 12/07/17 12/07/17 12/07/17 06:00 06:00 10:48 WBC 7.6 RBC 3.09 L Hgb 9.6 L Hct 27.0 L MCV 87.4 MCH 31.0 MCHC 35.5 RDW 13.5 Plt Count 317 Sodium 136 Potassium 4.7 Chloride 96 L Carbon Dioxide 26 Anion Gap 19 BUN 14 Creatinine 1.2 Est GFR ( Amer) > 60 Est GFR (Non-Af Amer) 59 POC Glucose (mg/dL) 217 H Random Glucose 162 H Calcium 8.8 12/07/17 15:52 WBC RBC Hgb Hct MCV MCH MCHC RDW Plt Count Sodium Potassium Chloride Carbon Dioxide Anion Gap BUN Creatinine Est GFR ( Amer) Est GFR (Non-Af Amer) POC Glucose (mg/dL) 187 H Random Glucose Calcium Assessment & Plan - Assessment and Plan (Free Text) Assessment: right TKR PT/OT to continue to help increase functional independence Pain: controlled with medications Vascular: no evidence of DVT on LMWH GI: + constipation on bowel regimen will follow Patient continues to be an excellent TCU rehabilitation candidate and will have continued focused PT, OT and recreational therapy to help facilitate a safe and appropriate d/c plan
--- NOTE | 2017-12-08 06:40 | CP.PCM.PN ---
Subjective - Date & Time of Evaluation Date of Evaluation: 12/07/17 Time of Evaluation: 11:00 - Subjective Subjective: Patient remains stable Doing well with PT Has some difficulty with stairs yet, Accucheck has been stable Has normal bm Objective - Vital Signs/Intake and Output Vital Signs (last 24 hours): Temp Pulse Resp BP Pulse Ox 97.9 F 68 20 104/55 L 98 12/07/17 19:29 12/07/17 19:29 12/07/17 19:29 12/07/17 19:29 12/07/17 19:29 - Medications Medications: Current Medications Acetaminophen (Tylenol 325mg Tab) 650 mg PO Q4 PRN PRN Reason: pain1-3 Last Admin: 12/07/17 13:58 Dose: 650 mg Aspirin (Ecotrin) 81 mg PO DAILY [facility] Last Admin: 12/07/17 08:37 Dose: 81 mg Atorvastatin Calcium (Lipitor) 10 mg PO DAILY@2100 [facility] Last Admin: 12/07/17 21:24 Dose: 10 mg Celecoxib (Celebrex) 100 mg PO Q12 [facility] Last Admin: 12/07/17 21:23 Dose: 100 mg Dextrose (Dextrose 50% Inj) 0 ml IV STAT PRN; Protocol PRN Reason: Hypoglycemia Protocol Dextrose (Glutose 15) 0 gm PO ONCE PRN; Protocol PRN Reason: Hypoglycemia Protocol Dextrose (Dextrose 50% Inj) 0 ml IV STAT PRN; Protocol PRN Reason: Hypoglycemia Protocol Dextrose (Glutose 15) 0 gm PO ONCE PRN; Protocol PRN Reason: Hypoglycemia Protocol Docusate Sodium (Colace) 100 mg PO TID [facility] Enoxaparin Sodium (Lovenox) 40 mg SC DAILY [facility] PRN Reason: Protocol Last Admin: 12/07/17 08:39 Dose: 40 mg Ferrous Sulfate (Feosol) 325 mg PO DAILY [facility] Last Admin: 12/07/17 08:37 Dose: 325 mg Gabapentin (Neurontin) 300 mg PO Q12 [facility] Last Admin: 12/07/17 21:24 Dose: 300 mg Glucagon (Glucagen Diagnostic Kit) 0 mg IM STAT PRN; Protocol PRN Reason: Hypoglycemia Protocol Glucagon (Glucagen Diagnostic Kit) 0 mg IM STAT PRN; Protocol PRN Reason: Hypoglycemia Protocol Insulin Human Regular (Humulin R) 0 units SC [facility] PRN Reason: Protocol Last Admin: 12/07/17 21:55 Dose: Not Given Metformin HCl (Glucophage) 500 mg PO BIDWM [facility] Last Admin: 12/07/17 16:20 Dose: 500 mg Metoprolol Succinate (Toprol Xl) 25 mg PO DAILY [facility] Last Admin: 12/07/17 08:38 Dose: 25 mg Multivitamins/Minerals (Therapeutic-M Tab) 1 tab PO DAILY [facility] Last Admin: 12/07/17 08:37 Dose: 1 tab Oxycodone HCl (Oxycontin Extended Release Tab) 10 mg PO Q12 [facility] Stop: 12/08/17 21:01 Last Admin: 12/07/17 21:24 Dose: 10 mg Pantoprazole Sodium (Protonix Ec Tab) 40 mg PO DAILY@0630 [facility] Polyethylene Glycol (Miralax) 17 gm PO BID [facility] Last Admin: 12/07/17 16:20 Dose: 17 gm Simethicone (Mylicon Chew Tab) 80 mg PO [facility] PRN PRN Reason: Flatulence Last Admin: 12/06/17 21:42 Dose: 80 mg Sitagliptin Phosphate (Januvia) 100 mg PO DAILY [facility] Last Admin: 12/07/17 08:38 Dose: 100 mg Tamsulosin HCl (Flomax) 0.4 mg PO HS [facility] Last Admin: 12/07/17 21:23 Dose: 0.4 mg - Labs Labs: 12/07/17 06:00 12/07/17 06:00 - Head Exam Head Exam: NORMAL INSPECTION - Eye Exam Eye Exam: Normal appearance - ENT Exam ENT Exam: Mucous Membranes Moist - Respiratory Exam Respiratory Exam: Clear to Ausculation Bilateral - Cardiovascular Exam Cardiovascular Exam: REGULAR RHYTHM - Neurological Exam Neurological Exam: Awake, CN II-XII Intact Assessment and Plan (1) Gait difficulty Status: Acute (2) Constipation Status: Acute (3) Status post total right knee replacement Status: Acute (4) Diabetes mellitus, type 2 Status: Chronic - Assessment and Plan (Free Text) Plan: Cont meds cont tx cont PT
[2017-12-08] MEDS: Insulin Regular 100 units/ml SC SCH ×4 (07:14→22:16)
[2017-12-08] MEDS: Pantoprazole 40 mg EC Tab PO SCH (07:15)
[2017-12-08] MEDS: Metoprolol Succinate 25 mg XL Tab PO SCH (08:28)
[2017-12-08] MEDS: Multivitamin With Minerals Tab PO SCH (08:28)
[2017-12-08] MEDS: Enoxaparin 40 mg Syringe SC SCH (08:29)
[2017-12-08] MEDS: POLYETHYLENE GLYCOL 3350 17 GM/Dose PACKET PO SCH ×2 (08:29→16:39)
[2017-12-08] MEDS: oxyCODONE 10 mg ER Tab (oxyCONTIN) PO SCH ×2 (08:32→20:53)
--- NOTE | 2017-12-08 09:21 | CP.PCM.PN ---
<Thony Hart - Last Filed: 12/08/17 12:48> Subjective - Date & Time of Evaluation Date of Evaluation: 12/08/17 Time of Evaluation: 08:30 - Subjective Subjective: Patient seen and examined this morning at bedside w/ Dr. Duran. There are no acute events overnight, NAD. The patient is tolerating physical therapy w/o issue. The patient has mild pain at surgical site on right knee relieved w/ medication. Patient is passing gas and having normal bowel movement. The patient has no other complaints Objective - Vital Signs/Intake and Output Vital Signs (last 24 hours): Temp Pulse Resp BP Pulse Ox 97.6 F 78 20 119/57 L 99 12/08/17 08:13 12/08/17 08:28 12/08/17 08:13 12/08/17 08:28 12/08/17 08:13 - Medications Medications: Current Medications Acetaminophen (Tylenol 325mg Tab) 650 mg PO Q4 PRN PRN Reason: pain1-3 Last Admin: 12/07/17 13:58 Dose: 650 mg Aspirin (Ecotrin) 81 mg PO DAILY [facility] Last Admin: 12/08/17 08:29 Dose: 81 mg Atorvastatin Calcium (Lipitor) 10 mg PO DAILY@2100 [facility] Last Admin: 12/07/17 21:24 Dose: 10 mg Celecoxib (Celebrex) 100 mg PO Q12 [facility] Last Admin: 12/08/17 08:27 Dose: 100 mg Dextrose (Dextrose 50% Inj) 0 ml IV STAT PRN; Protocol PRN Reason: Hypoglycemia Protocol Dextrose (Glutose 15) 0 gm PO ONCE PRN; Protocol PRN Reason: Hypoglycemia Protocol Dextrose (Dextrose 50% Inj) 0 ml IV STAT PRN; Protocol PRN Reason: Hypoglycemia Protocol Dextrose (Glutose 15) 0 gm PO ONCE PRN; Protocol PRN Reason: Hypoglycemia Protocol Docusate Sodium (Colace) 100 mg PO TID [facility] Last Admin: 12/08/17 08:27 Dose: 100 mg Ferrous Sulfate (Feosol) 325 mg PO DAILY [facility] Last Admin: 12/08/17 08:29 Dose: 325 mg Gabapentin (Neurontin) 300 mg PO Q12 [facility] Last Admin: 12/08/17 08:27 Dose: 300 mg Glucagon (Glucagen Diagnostic Kit) 0 mg IM STAT PRN; Protocol PRN Reason: Hypoglycemia Protocol Glucagon (Glucagen Diagnostic Kit) 0 mg IM STAT PRN; Protocol PRN Reason: Hypoglycemia Protocol Insulin Human Regular (Humulin R) 0 units SC [facility] PRN Reason: Protocol Last Admin: 12/08/17 07:14 Dose: 2 u Metformin HCl (Glucophage) 500 mg PO BIDWM [facility] Last Admin: 12/08/17 08:28 Dose: 500 mg Metoprolol Succinate (Toprol Xl) 25 mg PO DAILY [facility] Last Admin: 12/08/17 08:28 Dose: 25 mg Multivitamins/Minerals (Therapeutic-M Tab) 1 tab PO DAILY [facility] Last Admin: 12/08/17 08:28 Dose: 1 tab Oxycodone HCl (Oxycontin Extended Release Tab) 10 mg PO Q12 [facility] Stop: 12/08/17 21:01 Last Admin: 12/08/17 08:32 Dose: 10 mg Pantoprazole Sodium (Protonix Ec Tab) 40 mg PO DAILY@0630 [facility] Last Admin: 12/08/17 07:15 Dose: 40 mg Polyethylene Glycol (Miralax) 17 gm PO BID [facility] Last Admin: 12/08/17 08:29 Dose: Not Given Simethicone (Mylicon Chew Tab) 80 mg PO [facility] PRN PRN Reason: Flatulence Last Admin: 12/06/17 21:42 Dose: 80 mg Sitagliptin Phosphate (Januvia) 100 mg PO DAILY [facility] Last Admin: 12/08/17 08:29 Dose: 100 mg Tamsulosin HCl (Flomax) 0.4 mg PO HS [facility] Last Admin: 12/07/17 21:23 Dose: 0.4 mg - Labs Labs: 12/07/17 06:00 12/07/17 06:00 - Constitutional Appears: Non-toxic, No Acute Distress - Head Exam Head Exam: ATRAUMATIC, NORMAL INSPECTION, NORMOCEPHALIC - Eye Exam Eye Exam: Normal appearance - ENT Exam ENT Exam: Mucous Membranes Moist - Neck Exam Neck Exam: Full ROM. absent: Tenderness - Respiratory Exam Respiratory Exam: Clear to Ausculation Bilateral. absent: Accessory Muscle Use , Decreased Breath Sounds, Rales, Rhonchi, Wheezes, Respiratory Distress - Cardiovascular Exam Cardiovascular Exam: REGULAR RHYTHM. absent: Tachycardia - GI/Abdominal Exam GI & Abdominal Exam: Soft, Normal Bowel Sounds. absent: Distended, Tenderness - Extremities Exam Extremities Exam: absent: Calf Tenderness, Pedal Edema, Tenderness Additional comments: right leg wrapped in diana bandage, c/d/i - Neurological Exam Neurological Exam: Alert, Awake, Normal Gait (w/ assistance), Oriented x3 - Skin Skin Exam: Dry, Intact, Normal Color, Warm Assessment and Plan (1) Status post right knee replacement Status: Acute (2) CAD (coronary artery disease) Status: Chronic (3) Diabetes mellitus, type 2 Status: Chronic (4) Diabetic neuropathy Status: Chronic (5) HLD (hyperlipidemia) Status: Chronic (6) HTN (hypertension) Status: Chronic - Assessment and Plan (Free Text) Plan: c/w present management c/w home medications afebrile, non-tachycardic, normotensive ortho recommendations appreciated GI recommendations appreciated CBC: 7.6>9.6/27.0<317 CMP: 136/4.7, 96/26, 14/1.2, glucose 162 pain management: tylenol 325 mg PO Q4h prn, oxycodone 10 mg PO Q12h metformin 500 mg PO BID colace 100 mg PO TID protonix 40 mg PO daily insulin correction scale hypoglycemic protocol prophylactic measures: DVT SCDs encourage incentive spirometer c/w PT/OT monitor for acute changes <Anuel Duran - Last Filed: 12/13/17 18:24> Objective - Vital Signs/Intake and Output Vital Signs (last 24 hours): Temp Pulse Resp BP Pulse Ox 98.2 F 77 20 100/60 99 12/13/17 16:42 12/13/17 16:42 12/13/17 16:42 12/13/17 16:42 12/13/17 16:42 - Medications Medications: Current Medications Acetaminophen (Tylenol 325mg Tab) 650 mg PO Q4 PRN PRN Reason: pain1-3 Last Admin: 12/07/17 13:58 Dose: 650 mg Aspirin (Ecotrin) 81 mg PO DAILY [facility] Last Admin: 12/13/17 08:23 Dose: 81 mg Atorvastatin Calcium (Lipitor) 10 mg PO DAILY@2100 [facility] Last Admin: 12/12/17 20:44 Dose: 10 mg Betamethasone Dipropion Augmented (Diprolene Af) 0 gm TOP DAILY [facility] Last Admin: 12/13/17 13:04 Dose: 1 unit Celecoxib (Celebrex) 100 mg PO Q12 [facility] Last Admin: 12/13/17 08:23 Dose: 100 mg Clotrimazole (Lotrimin 1% Cream) 1 applic TOP DAILY [facility] Last Admin: 12/13/17 13:04 Dose: 1 unit Dextrose (Dextrose 50% Inj) 0 ml IV STAT PRN; Protocol PRN Reason: Hypoglycemia Protocol Dextrose (Glutose 15) 0 gm PO ONCE PRN; Protocol PRN Reason: Hypoglycemia Protocol Dextrose (Dextrose 50% Inj) 0 ml IV STAT PRN; Protocol PRN Reason: Hypoglycemia Protocol Dextrose (Glutose 15) 0 gm PO ONCE PRN; Protocol PRN Reason: Hypoglycemia Protocol Diphenhydramine HCl (Benadryl) 25 mg PO Q8H PRN PRN Reason: Itching / Pruritus Last Admin: 12/12/17 20:50 Dose: 25 mg Docusate Sodium (Colace) 100 mg PO TID [facility] Last Admin: 12/13/17 18:01 Dose: 100 mg Enoxaparin Sodium (Lovenox) 40 mg SC DAILY [facility] PRN Reason: Protocol Last Admin: 12/13/17 13:02 Dose: 40 mg Ferrous Sulfate (Feosol) 325 mg PO DAILY [facility] Last Admin: 12/13/17 08:24 Dose: 325 mg Fluconazole (Diflucan) 100 mg PO DAILY [facility] PRN Reason: Protocol Last Admin: 12/13/17 13:01 Dose: 100 mg Gabapentin (Neurontin) 300 mg PO Q12 [facility] Last Admin: 12/13/17 08:24 Dose: 300 mg Glucagon (Glucagen Diagnostic Kit) 0 mg IM STAT PRN; Protocol PRN Reason: Hypoglycemia Protocol Glucagon (Glucagen Diagnostic Kit) 0 mg IM STAT PRN; Protocol PRN Reason: Hypoglycemia Protocol Insulin Human Regular (Humulin R) 0 units SC ACHS [facility] PRN Reason: Protocol Last Admin: 12/13/17 17:15 Dose: 2 u Metformin HCl (Glucophage) 500 mg PO BIDWM [facility] Last Admin: 12/13/17 18:01 Dose: 500 mg Methylprednisolone (Medrol) 4 mg PO PCS [facility] Last Admin: 12/13/17 18:01 Dose: 4 mg Methylprednisolone (Medrol) 8 mg PO HS [facility] Metoprolol Succinate (Toprol Xl) 25 mg PO DAILY [facility] Last Admin: 12/13/17 08:23 Dose: 25 mg Multivitamins/Minerals (Therapeutic-M Tab) 1 tab PO DAILY [facility] Last Admin: 12/13/17 08:23 Dose: 1 tab Oxycodone HCl (Oxycontin Extended Release Tab) 10 mg PO Q12 [facility] Stop: 12/16/17 11:46 Last Admin: 12/13/17 12:21 Dose: 10 mg Pantoprazole Sodium (Protonix Ec Tab) 40 mg PO DAILY@0630 [facility] Last Admin: 12/13/17 06:52 Dose: 40 mg Polyethylene Glycol (Miralax) 17 gm PO BID [facility] Last Admin: 12/13/17 18:01 Dose: 17 gm Simethicone (Mylicon Chew Tab) 80 mg PO [facility] PRN PRN Reason: Flatulence Last Admin: 12/06/17 21:42 Dose: 80 mg Sitagliptin Phosphate (Januvia) 100 mg PO DAILY [facility] Last Admin: 12/13/17 08:24 Dose: 100 mg Tamsulosin HCl (Flomax) 0.[address] [facility] Last Admin: 12/12/17 21:11 Dose: 0.4 mg - Labs Labs: 12/07/17 06:00 12/07/17 06:00 Assessment and Plan (1) Gait difficulty Status: Acute (2) Constipation Status: Acute (3) Status post total right knee replacement Status: Acute (4) Diabetes mellitus, type 2 Status: Chronic - Assessment and Plan (Free Text) Plan: I was present during evaluation and discussed with Dr Hart re plans of care and tx. Anuel Duran M.D.
[2017-12-09] MEDS: Pantoprazole 40 mg EC Tab PO SCH (05:41)
[2017-12-09] MEDS: Insulin Regular 100 units/ml SC SCH ×4 (06:45→23:27)
[2017-12-09] MEDS: Metoprolol Succinate 25 mg XL Tab PO SCH (08:23)
[2017-12-09] MEDS: POLYETHYLENE GLYCOL 3350 17 GM/Dose PACKET PO SCH ×2 (08:23→17:33)
[2017-12-09] MEDS: Multivitamin With Minerals Tab PO SCH (08:23)
--- NOTE | 2017-12-09 08:26 | CP.PCM.PN ---
<Thony Hart - Last Filed: 12/09/17 11:25> Subjective - Date & Time of Evaluation Date of Evaluation: 12/09/17 Time of Evaluation: 09:00 - Subjective Subjective: Patient seen and examined this morning at bedside w/ Dr. Duran. There are no acute events overnight, NAD. The patient is tolerating physical therapy w/o issue. The patient has mild pain at surgical site on right knee relieved w/ medication. Patient is passing gas and having normal bowel movement. The patient has no other complaints Objective - Vital Signs/Intake and Output Vital Signs (last 24 hours): Temp Pulse Resp BP Pulse Ox 98.2 F 83 20 132/63 99 12/09/17 08:01 12/09/17 08:23 12/09/17 08:01 12/09/17 08:23 12/09/17 08:01 - Medications Medications: Current Medications Acetaminophen (Tylenol 325mg Tab) 650 mg PO Q4 PRN PRN Reason: pain1-3 Last Admin: 12/07/17 13:58 Dose: 650 mg Aspirin (Ecotrin) 81 mg PO DAILY [facility] Last Admin: 12/09/17 08:22 Dose: 81 mg Atorvastatin Calcium (Lipitor) 10 mg PO DAILY@2100 [facility] Last Admin: 12/08/17 20:58 Dose: 10 mg Celecoxib (Celebrex) 100 mg PO Q12 [facility] Last Admin: 12/09/17 08:21 Dose: 100 mg Dextrose (Dextrose 50% Inj) 0 ml IV STAT PRN; Protocol PRN Reason: Hypoglycemia Protocol Dextrose (Glutose 15) 0 gm PO ONCE PRN; Protocol PRN Reason: Hypoglycemia Protocol Dextrose (Dextrose 50% Inj) 0 ml IV STAT PRN; Protocol PRN Reason: Hypoglycemia Protocol Dextrose (Glutose 15) 0 gm PO ONCE PRN; Protocol PRN Reason: Hypoglycemia Protocol Docusate Sodium (Colace) 100 mg PO TID [facility] Last Admin: 12/09/17 08:22 Dose: 100 mg Enoxaparin Sodium (Lovenox) 40 mg SC DAILY [facility] PRN Reason: Protocol Ferrous Sulfate (Feosol) 325 mg PO DAILY [facility] Last Admin: 12/09/17 08:22 Dose: 325 mg Gabapentin (Neurontin) 300 mg PO Q12 [facility] Last Admin: 12/09/17 08:21 Dose: 300 mg Glucagon (Glucagen Diagnostic Kit) 0 mg IM STAT PRN; Protocol PRN Reason: Hypoglycemia Protocol Glucagon (Glucagen Diagnostic Kit) 0 mg IM STAT PRN; Protocol PRN Reason: Hypoglycemia Protocol Insulin Human Regular (Humulin R) 0 units SC [facility] PRN Reason: Protocol Last Admin: 12/09/17 06:45 Dose: 2 u Metformin HCl (Glucophage) 500 mg PO BIDWM [facility] Last Admin: 12/09/17 08:22 Dose: 500 mg Metoprolol Succinate (Toprol Xl) 25 mg PO DAILY [facility] Last Admin: 12/09/17 08:23 Dose: 25 mg Multivitamins/Minerals (Therapeutic-M Tab) 1 tab PO DAILY [facility] Last Admin: 12/09/17 08:23 Dose: 1 tab Pantoprazole Sodium (Protonix Ec Tab) 40 mg PO DAILY@0630 [facility] Last Admin: 12/09/17 05:41 Dose: 40 mg Polyethylene Glycol (Miralax) 17 gm PO BID [facility] Last Admin: 12/09/17 08:23 Dose: 17 gm Simethicone (Mylicon Chew Tab) 80 mg PO [facility] PRN PRN Reason: Flatulence Last Admin: 12/06/17 21:42 Dose: 80 mg Sitagliptin Phosphate (Januvia) 100 mg PO DAILY [facility] Last Admin: 12/09/17 08:23 Dose: 100 mg Tamsulosin HCl (Flomax) 0.4 mg PO [facility] Last Admin: 12/08/17 20:59 Dose: 0.4 mg - Labs Labs: 12/07/17 06:00 12/07/17 06:00 - Constitutional Appears: Non-toxic, No Acute Distress - Head Exam Head Exam: ATRAUMATIC, NORMAL INSPECTION, NORMOCEPHALIC - Eye Exam Eye Exam: Normal appearance - ENT Exam ENT Exam: Mucous Membranes Moist - Neck Exam Neck Exam: Full ROM. absent: Tenderness - Respiratory Exam Respiratory Exam: Clear to Ausculation Bilateral. absent: Accessory Muscle Use , Decreased Breath Sounds, Rales, Rhonchi, Wheezes, Respiratory Distress - Cardiovascular Exam Cardiovascular Exam: REGULAR RHYTHM. absent: Tachycardia - GI/Abdominal Exam GI & Abdominal Exam: Soft, Normal Bowel Sounds. absent: Distended, Tenderness - Extremities Exam Extremities Exam: absent: Calf Tenderness, Pedal Edema, Tenderness Additional comments: right leg wrapped in diana bandage, c/d/i - Neurological Exam Neurological Exam: Alert, Awake, Normal Gait (w/ assistance), Oriented x3 - Skin Skin Exam: Dry, Intact, Normal Color, Warm Assessment and Plan (1) Status post right knee replacement Status: Acute (2) CAD (coronary artery disease) Status: Chronic (3) Diabetes mellitus, type 2 Status: Chronic (4) Diabetic neuropathy Status: Chronic (5) HLD (hyperlipidemia) Status: Chronic (6) HTN (hypertension) Status: Chronic - Assessment and Plan (Free Text) Plan: c/w present management c/w home medications afebrile, non-tachycardic, normotensive ortho recommendations appreciated GI recommendations appreciated CBC: 7.6>9.6/27.0<317 CMP: 136/4.7, 96/26, 14/1.2, glucose 162 pain management: tylenol 325 mg PO Q4h prn, gabapentin 300 mg PO Q12h metformin 500 mg PO BID colace 100 mg PO TID protonix 40 mg PO daily insulin correction scale hypoglycemic protocol prophylactic measures: DVT lovenox 40 mg SC daily encourage incentive spirometer c/w PT/OT monitor for acute changes <Anuel Duran - Last Filed: 12/13/17 18:27> Objective - Vital Signs/Intake and Output Vital Signs (last 24 hours): Temp Pulse Resp BP Pulse Ox 98.2 F 77 20 100/60 99 12/13/17 16:42 12/13/17 16:42 12/13/17 16:42 12/13/17 16:42 12/13/17 16:42 - Medications Medications: Current Medications Acetaminophen (Tylenol 325mg Tab) 650 mg PO Q4 PRN PRN Reason: pain1-3 Last Admin: 12/07/17 13:58 Dose: 650 mg Aspirin (Ecotrin) 81 mg PO DAILY [facility] Last Admin: 12/13/17 08:23 Dose: 81 mg Atorvastatin Calcium (Lipitor) 10 mg PO DAILY@2100 [facility] Last Admin: 12/12/17 20:44 Dose: 10 mg Betamethasone Dipropion Augmented (Diprolene Af) 0 gm TOP DAILY [facility] Last Admin: 12/13/17 13:04 Dose: 1 unit Celecoxib (Celebrex) 100 mg PO Q12 [facility] Last Admin: 12/13/17 08:23 Dose: 100 mg Clotrimazole (Lotrimin 1% Cream) 1 applic TOP DAILY [facility] Last Admin: 12/13/17 13:04 Dose: 1 unit Dextrose (Dextrose 50% Inj) 0 ml IV STAT PRN; Protocol PRN Reason: Hypoglycemia Protocol Dextrose (Glutose 15) 0 gm PO ONCE PRN; Protocol PRN Reason: Hypoglycemia Protocol Dextrose (Dextrose 50% Inj) 0 ml IV STAT PRN; Protocol PRN Reason: Hypoglycemia Protocol Dextrose (Glutose 15) 0 gm PO ONCE PRN; Protocol PRN Reason: Hypoglycemia Protocol Diphenhydramine HCl (Benadryl) 25 mg PO Q8H PRN PRN Reason: Itching / Pruritus Last Admin: 12/12/17 20:50 Dose: 25 mg Docusate Sodium (Colace) 100 mg PO TID [facility] Last Admin: 12/13/17 18:01 Dose: 100 mg Enoxaparin Sodium (Lovenox) 40 mg SC DAILY [facility] PRN Reason: Protocol Last Admin: 12/13/17 13:02 Dose: 40 mg Ferrous Sulfate (Feosol) 325 mg PO DAILY [facility] Last Admin: 12/13/17 08:24 Dose: 325 mg Fluconazole (Diflucan) 100 mg PO DAILY [facility] PRN Reason: Protocol Last Admin: 12/13/17 13:01 Dose: 100 mg Gabapentin (Neurontin) 300 mg PO Q12 [facility] Last Admin: 12/13/17 08:24 Dose: 300 mg Glucagon (Glucagen Diagnostic Kit) 0 mg IM STAT PRN; Protocol PRN Reason: Hypoglycemia Protocol Glucagon (Glucagen Diagnostic Kit) 0 mg IM STAT PRN; Protocol PRN Reason: Hypoglycemia Protocol Insulin Human Regular (Humulin R) 0 units SC ACHS [facility] PRN Reason: Protocol Last Admin: 12/13/17 17:15 Dose: 2 u Metformin HCl (Glucophage) 500 mg PO BIDWM [facility] Last Admin: 12/13/17 18:01 Dose: 500 mg Methylprednisolone (Medrol) 4 mg PO PCS [facility] Last Admin: 12/13/17 18:01 Dose: 4 mg Methylprednisolone (Medrol) 8 mg PO HS [facility] Metoprolol Succinate (Toprol Xl) 25 mg PO DAILY [facility] Last Admin: 12/13/17 08:23 Dose: 25 mg Multivitamins/Minerals (Therapeutic-M Tab) 1 tab PO DAILY [facility] Last Admin: 12/13/17 08:23 Dose: 1 tab Oxycodone HCl (Oxycontin Extended Release Tab) 10 mg PO Q12 [facility] Stop: 12/16/17 11:46 Last Admin: 12/13/17 12:21 Dose: 10 mg Pantoprazole Sodium (Protonix Ec Tab) 40 mg PO DAILY@0630 [facility] Last Admin: 12/13/17 06:52 Dose: 40 mg Polyethylene Glycol (Miralax) 17 gm PO BID [facility] Last Admin: 12/13/17 18:01 Dose: 17 gm Simethicone (Mylicon Chew Tab) 80 mg PO [facility] PRN PRN Reason: Flatulence Last Admin: 12/06/17 21:42 Dose: 80 mg Sitagliptin Phosphate (Januvia) 100 mg PO DAILY [facility] Last Admin: 12/13/17 08:24 Dose: 100 mg Tamsulosin HCl (Flomax) 0.4 mg PO [facility] Last Admin: 12/12/17 21:11 Dose: 0.4 mg - Labs Labs: 12/07/17 06:00 12/07/17 06:00 Assessment and Plan (1) Gait difficulty Status: Acute (2) Constipation Status: Acute (3) Status post total right knee replacement Status: Acute (4) Diabetes mellitus, type 2 Status: Chronic - Assessment and Plan (Free Text) Plan: I was present during evaluation and discussed with Dr Hart re plans of care and tx. Anuel Duran M.D.
[2017-12-09] MEDS: Enoxaparin 40 mg Syringe SC SCH (17:32)
[2017-12-09] MEDS: oxyCODONE 10 mg ER Tab (oxyCONTIN) PO SCH (20:48)
[2017-12-10] MEDS: Pantoprazole 40 mg EC Tab PO SCH (06:18)
[2017-12-10] MEDS: Insulin Regular 100 units/ml SC SCH ×4 (06:42→21:27)
--- NOTE | 2017-12-10 08:21 | CP.PCM.PN ---
<Thony Hart - Last Filed: 12/10/17 11:44> Subjective - Date & Time of Evaluation Date of Evaluation: 12/10/17 Time of Evaluation: 10:15 - Subjective Subjective: Patient seen and examined this morning at bedside w/ Dr. Duran. There are no acute events overnight, NAD. The patient is tolerating physical therapy w/o issue. The patient has mild pain at surgical site on right knee relieved w/ medication. Patient is passing gas and having normal bowel movement. The patient has a non-pruritic rash along anterior, lateral, posterior, and superior right thigh, most likely intertrigo. The patient has no other complaints Objective - Vital Signs/Intake and Output Vital Signs (last 24 hours): Temp Pulse Resp BP Pulse Ox 98.2 F 81 20 118/56 L 99 12/10/17 07:56 12/10/17 07:56 12/10/17 07:56 12/10/17 07:56 12/10/17 07:56 - Medications Medications: Current Medications Acetaminophen (Tylenol 325mg Tab) 650 mg PO Q4 PRN PRN Reason: pain1-3 Last Admin: 12/07/17 13:58 Dose: 650 mg Aspirin (Ecotrin) 81 mg PO DAILY [facility] Last Admin: 12/09/17 08:22 Dose: 81 mg Atorvastatin Calcium (Lipitor) 10 mg PO DAILY@2100 [facility] Last Admin: 12/09/17 20:50 Dose: 10 mg Celecoxib (Celebrex) 100 mg PO Q12 [facility] Last Admin: 12/09/17 20:50 Dose: 100 mg Dextrose (Dextrose 50% Inj) 0 ml IV STAT PRN; Protocol PRN Reason: Hypoglycemia Protocol Dextrose (Glutose 15) 0 gm PO ONCE PRN; Protocol PRN Reason: Hypoglycemia Protocol Dextrose (Dextrose 50% Inj) 0 ml IV STAT PRN; Protocol PRN Reason: Hypoglycemia Protocol Dextrose (Glutose 15) 0 gm PO ONCE PRN; Protocol PRN Reason: Hypoglycemia Protocol Docusate Sodium (Colace) 100 mg PO TID [facility] Last Admin: 12/09/17 17:31 Dose: 100 mg Enoxaparin Sodium (Lovenox) 40 mg SC DAILY [facility] PRN Reason: Protocol Last Admin: 12/09/17 17:32 Dose: 40 mg Ferrous Sulfate (Feosol) 325 mg PO DAILY [facility] Last Admin: 12/09/17 08:22 Dose: 325 mg Gabapentin (Neurontin) 300 mg PO Q12 [facility] Last Admin: 12/09/17 20:50 Dose: 300 mg Glucagon (Glucagen Diagnostic Kit) 0 mg IM STAT PRN; Protocol PRN Reason: Hypoglycemia Protocol Glucagon (Glucagen Diagnostic Kit) 0 mg IM STAT PRN; Protocol PRN Reason: Hypoglycemia Protocol Insulin Human Regular (Humulin R) 0 units SC [facility] PRN Reason: Protocol Last Admin: 12/10/17 06:42 Dose: 2 u Metformin HCl (Glucophage) 500 mg PO BIDWM [facility] Last Admin: 12/09/17 17:31 Dose: 500 mg Metoprolol Succinate (Toprol Xl) 25 mg PO DAILY [facility] Last Admin: 12/09/17 08:23 Dose: 25 mg Multivitamins/Minerals (Therapeutic-M Tab) 1 tab PO DAILY [facility] Last Admin: 12/09/17 08:23 Dose: 1 tab Oxycodone HCl (Oxycontin Extended Release Tab) 10 mg PO Q12 [facility] Stop: 12/12/17 21:01 Last Admin: 12/09/17 20:48 Dose: 10 mg Pantoprazole Sodium (Protonix Ec Tab) 40 mg PO DAILY@0630 [facility] Last Admin: 12/10/17 06:18 Dose: 40 mg Polyethylene Glycol (Miralax) 17 gm PO BID [facility] Last Admin: 12/09/17 17:33 Dose: Not Given Simethicone (Mylicon Chew Tab) 80 mg PO [facility] PRN PRN Reason: Flatulence Last Admin: 12/06/17 21:42 Dose: 80 mg Sitagliptin Phosphate (Januvia) 100 mg PO DAILY [facility] Last Admin: 12/09/17 08:23 Dose: 100 mg Tamsulosin HCl (Flomax) 0.4 mg PO HS [facility] Last Admin: 12/09/17 22:01 Dose: 0.4 mg - Labs Labs: 12/07/17 06:00 12/07/17 06:00 - Constitutional Appears: Non-toxic, No Acute Distress - Head Exam Head Exam: ATRAUMATIC, NORMAL INSPECTION, NORMOCEPHALIC - Eye Exam Eye Exam: Normal appearance - ENT Exam ENT Exam: Mucous Membranes Moist - Neck Exam Neck Exam: Full ROM. absent: Tenderness - Respiratory Exam Respiratory Exam: Clear to Ausculation Bilateral. absent: Accessory Muscle Use , Decreased Breath Sounds, Rales, Rhonchi, Wheezes, Respiratory Distress - Cardiovascular Exam Cardiovascular Exam: REGULAR RHYTHM. absent: Tachycardia - GI/Abdominal Exam GI & Abdominal Exam: Soft, Normal Bowel Sounds. absent: Distended, Tenderness - Extremities Exam Extremities Exam: absent: Calf Tenderness, Pedal Edema, Tenderness Additional comments: right knee covered w/ island dressing, c/d/i - Neurological Exam Neurological Exam: Alert, Awake, Normal Gait (w/ assistance), Oriented x3 - Skin Skin Exam: Dry, Warm Additional comments: intertrigo rash along anterior, lateral, medial, posterior, and superior right leg Assessment and Plan (1) Status post right knee replacement Status: Acute (2) CAD (coronary artery disease) Status: Chronic (3) Diabetes mellitus, type 2 Status: Chronic (4) Diabetic neuropathy Status: Chronic (5) HLD (hyperlipidemia) Status: Chronic (6) HTN (hypertension) Status: Chronic - Assessment and Plan (Free Text) Plan: c/w present management c/w home medications afebrile, non-tachycardic, normotensive ortho recommendations appreciated GI recommendations appreciated pain management: tylenol 325 mg PO Q4h prn, gabapentin 300 mg PO Q12h metformin 500 mg PO BID colace 100 mg PO TID protonix 40 mg PO daily clotrimazole 1% TOP BID hydrocortisone 1% TOP daily insulin correction scale hypoglycemic protocol prophylactic measures: DVT lovenox 40 mg SC daily encourage incentive spirometer c/w PT/OT monitor for acute changes <Anuel Duran - Last Filed: 12/13/17 18:25> Objective - Vital Signs/Intake and Output Vital Signs (last 24 hours): Temp Pulse Resp BP Pulse Ox 98.2 F 77 20 100/60 99 12/13/17 16:42 12/13/17 16:42 12/13/17 16:42 12/13/17 16:42 12/13/17 16:42 - Medications Medications: Current Medications Acetaminophen (Tylenol 325mg Tab) 650 mg PO Q4 PRN PRN Reason: pain1-3 Last Admin: 12/07/17 13:58 Dose: 650 mg Aspirin (Ecotrin) 81 mg PO DAILY [facility] Last Admin: 12/13/17 08:23 Dose: 81 mg Atorvastatin Calcium (Lipitor) 10 mg PO DAILY@2100 [facility] Last Admin: 12/12/17 20:44 Dose: 10 mg Betamethasone Dipropion Augmented (Diprolene Af) 0 gm TOP DAILY [facility] Last Admin: 12/13/17 13:04 Dose: 1 unit Celecoxib (Celebrex) 100 mg PO Q12 [facility] Last Admin: 12/13/17 08:23 Dose: 100 mg Clotrimazole (Lotrimin 1% Cream) 1 applic TOP DAILY [facility] Last Admin: 12/13/17 13:04 Dose: 1 unit Dextrose (Dextrose 50% Inj) 0 ml IV STAT PRN; Protocol PRN Reason: Hypoglycemia Protocol Dextrose (Glutose 15) 0 gm PO ONCE PRN; Protocol PRN Reason: Hypoglycemia Protocol Dextrose (Dextrose 50% Inj) 0 ml IV STAT PRN; Protocol PRN Reason: Hypoglycemia Protocol Dextrose (Glutose 15) 0 gm PO ONCE PRN; Protocol PRN Reason: Hypoglycemia Protocol Diphenhydramine HCl (Benadryl) 25 mg PO Q8H PRN PRN Reason: Itching / Pruritus Last Admin: 12/12/17 20:50 Dose: 25 mg Docusate Sodium (Colace) 100 mg PO TID [facility] Last Admin: 12/13/17 18:01 Dose: 100 mg Enoxaparin Sodium (Lovenox) 40 mg SC DAILY [facility] PRN Reason: Protocol Last Admin: 12/13/17 13:02 Dose: 40 mg Ferrous Sulfate (Feosol) 325 mg PO DAILY [facility] Last Admin: 12/13/17 08:24 Dose: 325 mg Fluconazole (Diflucan) 100 mg PO DAILY [facility] PRN Reason: Protocol Last Admin: 12/13/17 13:01 Dose: 100 mg Gabapentin (Neurontin) 300 mg PO Q12 [facility] Last Admin: 12/13/17 08:24 Dose: 300 mg Glucagon (Glucagen Diagnostic Kit) 0 mg IM STAT PRN; Protocol PRN Reason: Hypoglycemia Protocol Glucagon (Glucagen Diagnostic Kit) 0 mg IM STAT PRN; Protocol PRN Reason: Hypoglycemia Protocol Insulin Human Regular (Humulin R) 0 units SC ACHS [facility] PRN Reason: Protocol Last Admin: 12/13/17 17:15 Dose: 2 u Metformin HCl (Glucophage) 500 mg PO BIDWM [facility] Last Admin: 12/13/17 18:01 Dose: 500 mg Methylprednisolone (Medrol) 4 mg PO PCS [facility] Last Admin: 12/13/17 18:01 Dose: 4 mg Methylprednisolone (Medrol) 8 mg PO [facility] Metoprolol Succinate (Toprol Xl) 25 mg PO DAILY [facility] Last Admin: 12/13/17 08:23 Dose: 25 mg Multivitamins/Minerals (Therapeutic-M Tab) 1 tab PO DAILY [facility] Last Admin: 12/13/17 08:23 Dose: 1 tab Oxycodone HCl (Oxycontin Extended Release Tab) 10 mg PO Q12 [facility] Stop: 12/16/17 11:46 Last Admin: 12/13/17 12:21 Dose: 10 mg Pantoprazole Sodium (Protonix Ec Tab) 40 mg PO DAILY@0630 [facility] Last Admin: 12/13/17 06:52 Dose: 40 mg Polyethylene Glycol (Miralax) 17 gm PO BID [facility] Last Admin: 12/13/17 18:01 Dose: 17 gm Simethicone (Mylicon Chew Tab) 80 mg PO [facility] PRN PRN Reason: Flatulence Last Admin: 12/06/17 21:42 Dose: 80 mg Sitagliptin Phosphate (Januvia) 100 mg PO DAILY [facility] Last Admin: 12/13/17 08:24 Dose: 100 mg Tamsulosin HCl (Flomax) 0.4 mg PO [facility] Last Admin: 12/12/17 21:11 Dose: 0.4 mg - Labs Labs: 12/07/17 06:00 12/07/17 06:00 Assessment and Plan (1) Gait difficulty Status: Acute (2) Constipation Status: Acute (3) Status post total right knee replacement Status: Acute (4) Diabetes mellitus, type 2 Status: Chronic - Assessment and Plan (Free Text) Plan: I was present during evaluation and discussed with Dr Hart re plans of care and mgt. Anuel Duran M.D.
[2017-12-10] MEDS: Metoprolol Succinate 25 mg XL Tab PO SCH (08:31)
[2017-12-10] MEDS: POLYETHYLENE GLYCOL 3350 17 GM/Dose PACKET PO SCH ×2 (08:31→17:03)
[2017-12-10] MEDS: Multivitamin With Minerals Tab PO SCH (08:32)
[2017-12-10] MEDS: Enoxaparin 40 mg Syringe SC SCH (08:33)
[2017-12-10] MEDS: oxyCODONE 10 mg ER Tab (oxyCONTIN) PO SCH ×2 (09:18→20:35)
--- NOTE | 2017-12-10 11:24 | CP.PCM.PN ---
Subjective - Date & Time of Evaluation Date of Evaluation: 12/10/17 Time of Evaluation: 11:23 - Subjective Subjective: Patient seen and examined at bedside comfortable. No complaints of pain. Has irritation and redness at the medial and posterior thigh. Objective - Vital Signs/Intake and Output Vital Signs (last 24 hours): Temp Pulse Resp BP Pulse Ox 98.2 F 81 20 118/56 L 99 12/10/17 07:56 12/10/17 08:31 12/10/17 07:56 12/10/17 08:31 12/10/17 07:56 - Medications Medications: Current Medications Acetaminophen (Tylenol 325mg Tab) 650 mg PO Q4 PRN PRN Reason: pain1-3 Last Admin: 12/07/17 13:58 Dose: 650 mg Aspirin (Ecotrin) 81 mg PO DAILY [facility] Last Admin: 12/10/17 08:32 Dose: 81 mg Atorvastatin Calcium (Lipitor) 10 mg PO DAILY@2100 [facility] Last Admin: 12/09/17 20:50 Dose: 10 mg Celecoxib (Celebrex) 100 mg PO Q12 [facility] Last Admin: 12/10/17 08:33 Dose: 100 mg Clotrimazole (Lotrimin Af 1%) 1 applic TOP BID [facility] Dextrose (Dextrose 50% Inj) 0 ml IV STAT PRN; Protocol PRN Reason: Hypoglycemia Protocol Dextrose (Glutose 15) 0 gm PO ONCE PRN; Protocol PRN Reason: Hypoglycemia Protocol Dextrose (Dextrose 50% Inj) 0 ml IV STAT PRN; Protocol PRN Reason: Hypoglycemia Protocol Dextrose (Glutose 15) 0 gm PO ONCE PRN; Protocol PRN Reason: Hypoglycemia Protocol Docusate Sodium (Colace) 100 mg PO TID [facility] Last Admin: 12/10/17 08:32 Dose: 100 mg Enoxaparin Sodium (Lovenox) 40 mg SC DAILY [facility] PRN Reason: Protocol Last Admin: 12/10/17 08:33 Dose: 40 mg Ferrous Sulfate (Feosol) 325 mg PO DAILY [facility] Last Admin: 12/10/17 08:32 Dose: 325 mg Gabapentin (Neurontin) 300 mg PO Q12 [facility] Last Admin: 12/10/17 08:31 Dose: 300 mg Glucagon (Glucagen Diagnostic Kit) 0 mg IM STAT PRN; Protocol PRN Reason: Hypoglycemia Protocol Glucagon (Glucagen Diagnostic Kit) 0 mg IM STAT PRN; Protocol PRN Reason: Hypoglycemia Protocol Insulin Human Regular (Humulin R) 0 units SC [facility] PRN Reason: Protocol Last Admin: 12/10/17 06:42 Dose: 2 u Metformin HCl (Glucophage) 500 mg PO BIDWM [facility] Last Admin: 12/10/17 08:32 Dose: 500 mg Metoprolol Succinate (Toprol Xl) 25 mg PO DAILY [facility] Last Admin: 12/10/17 08:31 Dose: 25 mg Multivitamins/Minerals (Therapeutic-M Tab) 1 tab PO DAILY [facility] Last Admin: 12/10/17 08:32 Dose: 1 tab Oxycodone HCl (Oxycontin Extended Release Tab) 10 mg PO Q12 [facility] Stop: 12/12/17 21:01 Last Admin: 12/10/17 09:18 Dose: 10 mg Pantoprazole Sodium (Protonix Ec Tab) 40 mg PO DAILY@0630 [facility] Last Admin: 12/10/17 06:18 Dose: 40 mg Polyethylene Glycol (Miralax) 17 gm PO BID [facility] Last Admin: 12/10/17 08:31 Dose: 17 gm Simethicone (Mylicon Chew Tab) 80 mg PO [facility] PRN PRN Reason: Flatulence Last Admin: 12/06/17 21:42 Dose: 80 mg Sitagliptin Phosphate (Januvia) 100 mg PO DAILY [facility] Last Admin: 12/10/17 08:32 Dose: 100 mg Tamsulosin HCl (Flomax) 0.4 mg PO [facility] Last Admin: 12/09/17 22:01 Dose: 0.4 mg - Labs Labs: 12/07/17 06:00 12/07/17 06:00 - Back Exam Additional comments: R knee: Dressings CDI, wound CDI with adrien, no drainage, swelling and redness medial and posterior thigh Sensation intact SP/DP/TN motor intact EHL/FHL/TA/G pedal pulses intact comp soft NT Assessment and Plan (1) Status post total right knee replacement Assessment & Plan: POD#9 s/p R TKA doing well -redness and swelling due to skin irritation from ecchymosis absorption, infection not likely, will monitor. Recommend ice, elevation and topical hydrocortisone. -PT/OT -DVT ppx -dressings changed -above d/w Dr. Diaz in agreement Status: Acute
[2017-12-11] MEDS: Pantoprazole 40 mg EC Tab PO SCH (06:17)
[2017-12-11] MEDS: Insulin Regular 100 units/ml SC SCH ×4 (06:53→22:17)
--- NOTE | 2017-12-11 08:09 | CP.PCM.PN ---
<Thony Hart - Last Filed: 12/11/17 11:36> Subjective - Date & Time of Evaluation Date of Evaluation: 12/11/17 Time of Evaluation: 10:15 - Subjective Subjective: Patient seen and examined this morning at bedside w/ Dr. Duran. Patient is s/ p right TKR POD#10. There are no acute events overnight, NAD. The patient is tolerating physical therapy w/o issue. The patient has mild pain at surgical site on right knee relieved w/ medication. Patient is passing gas and having normal bowel movement. The patient has a non-pruritic rash along anterior, lateral, posterior, and superior right thigh, most likely intertrigo. The patient has no other complaints Objective - Vital Signs/Intake and Output Vital Signs (last 24 hours): Temp Pulse Resp BP Pulse Ox 98.1 F 85 20 113/53 L 99 12/10/17 21:12 12/10/17 21:12 12/10/17 21:12 12/10/17 21:12 12/10/17 21:12 - Medications Medications: Current Medications Acetaminophen (Tylenol 325mg Tab) 650 mg PO Q4 PRN PRN Reason: pain1-3 Last Admin: 12/07/17 13:58 Dose: 650 mg Aspirin (Ecotrin) 81 mg PO DAILY [facility] Last Admin: 12/10/17 08:32 Dose: 81 mg Atorvastatin Calcium (Lipitor) 10 mg PO DAILY@2100 [facility] Last Admin: 12/10/17 20:35 Dose: 10 mg Celecoxib (Celebrex) 100 mg PO Q12 [facility] Last Admin: 12/10/17 20:35 Dose: 100 mg Clotrimazole (Lotrimin Af 1%) 1 applic TOP BID [facility] Last Admin: 12/10/17 17:03 Dose: 1 u Dextrose (Dextrose 50% Inj) 0 ml IV STAT PRN; Protocol PRN Reason: Hypoglycemia Protocol Dextrose (Glutose 15) 0 gm PO ONCE PRN; Protocol PRN Reason: Hypoglycemia Protocol Dextrose (Dextrose 50% Inj) 0 ml IV STAT PRN; Protocol PRN Reason: Hypoglycemia Protocol Dextrose (Glutose 15) 0 gm PO ONCE PRN; Protocol PRN Reason: Hypoglycemia Protocol Docusate Sodium (Colace) 100 mg PO TID [facility] Last Admin: 12/10/17 17:01 Dose: 100 mg Enoxaparin Sodium (Lovenox) 40 mg SC DAILY [facility] PRN Reason: Protocol Last Admin: 12/10/17 08:33 Dose: 40 mg Ferrous Sulfate (Feosol) 325 mg PO DAILY [facility] Last Admin: 12/10/17 08:32 Dose: 325 mg Gabapentin (Neurontin) 300 mg PO Q12 [facility] Last Admin: 12/10/17 20:35 Dose: 300 mg Glucagon (Glucagen Diagnostic Kit) 0 mg IM STAT PRN; Protocol PRN Reason: Hypoglycemia Protocol Glucagon (Glucagen Diagnostic Kit) 0 mg IM STAT PRN; Protocol PRN Reason: Hypoglycemia Protocol Hydrocortisone (Cortizone 1% Cream) 1 applic TOP BID [facility] Last Admin: 12/10/17 17:02 Dose: 1 u Insulin Human Regular (Humulin R) 0 units SC [facility] PRN Reason: Protocol Last Admin: 12/11/17 06:53 Dose: Not Given Metformin HCl (Glucophage) 500 mg PO BIDWM [facility] Last Admin: 12/10/17 17:02 Dose: 500 mg Metoprolol Succinate (Toprol Xl) 25 mg PO DAILY [facility] Last Admin: 12/10/17 08:31 Dose: 25 mg Multivitamins/Minerals (Therapeutic-M Tab) 1 tab PO DAILY [facility] Last Admin: 12/10/17 08:32 Dose: 1 tab Oxycodone HCl (Oxycontin Extended Release Tab) 10 mg PO Q12 [facility] Stop: 12/12/17 21:01 Last Admin: 12/10/17 20:35 Dose: 10 mg Pantoprazole Sodium (Protonix Ec Tab) 40 mg PO DAILY@0630 [facility] Last Admin: 12/11/17 06:17 Dose: 40 mg Polyethylene Glycol (Miralax) 17 gm PO BID [facility] Last Admin: 12/10/17 17:03 Dose: Not Given Simethicone (Mylicon Chew Tab) 80 mg PO [facility] PRN PRN Reason: Flatulence Last Admin: 12/06/17 21:42 Dose: 80 mg Sitagliptin Phosphate (Januvia) 100 mg PO DAILY [facility] Last Admin: 12/10/17 08:32 Dose: 100 mg Tamsulosin HCl (Flomax) 0.4 mg PO [facility] Last Admin: 12/10/17 21:15 Dose: 0.4 mg - Labs Labs: 12/07/17 06:00 12/07/17 06:00 - Constitutional Appears: Non-toxic, No Acute Distress - Head Exam Head Exam: ATRAUMATIC, NORMAL INSPECTION, NORMOCEPHALIC - Eye Exam Eye Exam: Normal appearance - ENT Exam ENT Exam: Mucous Membranes Moist - Neck Exam Neck Exam: Full ROM - Respiratory Exam Respiratory Exam: Clear to Ausculation Bilateral. absent: Accessory Muscle Use , Decreased Breath Sounds, Rales, Rhonchi, Wheezes, Respiratory Distress - Cardiovascular Exam Cardiovascular Exam: REGULAR RHYTHM. absent: Tachycardia - GI/Abdominal Exam GI & Abdominal Exam: Soft, Normal Bowel Sounds. absent: Distended, Tenderness - Extremities Exam Extremities Exam: absent: Calf Tenderness, Pedal Edema, Tenderness Additional comments: right knee covered w/ island dressing, c/d/i - Neurological Exam Neurological Exam: Alert, Awake, Normal Gait (w/ assistance), Oriented x3 - Skin Skin Exam: Dry, Warm Additional comments: intertrigo rash along anterior, lateral, medial, posterior, and superior right leg Assessment and Plan (1) Status post right knee replacement Status: Acute (2) CAD (coronary artery disease) Status: Chronic (3) Diabetes mellitus, type 2 Status: Chronic (4) Diabetic neuropathy Status: Chronic (5) HLD (hyperlipidemia) Status: Chronic (6) HTN (hypertension) Status: Chronic - Assessment and Plan (Free Text) Plan: c/w present management, s/p right TKR POD#10 c/w home medications afebrile, non-tachycardic, normotensive ortho recommendations appreciated GI recommendations appreciated pain management: tylenol 325 mg PO Q4h prn, gabapentin 300 mg PO Q12h, oxycodone 10 mg PO Q12h prn metformin 500 mg PO BID colace 100 mg PO TID protonix 40 mg PO daily clotrimazole 1% TOP BID hydrocortisone 1% TOP daily insulin correction scale hypoglycemic protocol prophylactic measures: DVT lovenox 40 mg SC daily encourage incentive spirometer c/w PT/OT monitor for acute changes <Anuel Duran - Last Filed: 12/13/17 18:26> Objective - Vital Signs/Intake and Output Vital Signs (last 24 hours): Temp Pulse Resp BP Pulse Ox 98.2 F 77 20 100/60 99 12/13/17 16:42 12/13/17 16:42 12/13/17 16:42 12/13/17 16:42 12/13/17 16:42 - Medications Medications: Current Medications Acetaminophen (Tylenol 325mg Tab) 650 mg PO Q4 PRN PRN Reason: pain1-3 Last Admin: 12/07/17 13:58 Dose: 650 mg Aspirin (Ecotrin) 81 mg PO DAILY [facility] Last Admin: 12/13/17 08:23 Dose: 81 mg Atorvastatin Calcium (Lipitor) 10 mg PO DAILY@2100 [facility] Last Admin: 12/12/17 20:44 Dose: 10 mg Betamethasone Dipropion Augmented (Diprolene Af) 0 gm TOP DAILY [facility] Last Admin: 12/13/17 13:04 Dose: 1 unit Celecoxib (Celebrex) 100 mg PO Q12 [facility] Last Admin: 12/13/17 08:23 Dose: 100 mg Clotrimazole (Lotrimin 1% Cream) 1 applic TOP DAILY [facility] Last Admin: 12/13/17 13:04 Dose: 1 unit Dextrose (Dextrose 50% Inj) 0 ml IV STAT PRN; Protocol PRN Reason: Hypoglycemia Protocol Dextrose (Glutose 15) 0 gm PO ONCE PRN; Protocol PRN Reason: Hypoglycemia Protocol Dextrose (Dextrose 50% Inj) 0 ml IV STAT PRN; Protocol PRN Reason: Hypoglycemia Protocol Dextrose (Glutose 15) 0 gm PO ONCE PRN; Protocol PRN Reason: Hypoglycemia Protocol Diphenhydramine HCl (Benadryl) 25 mg PO Q8H PRN PRN Reason: Itching / Pruritus Last Admin: 12/12/17 20:50 Dose: 25 mg Docusate Sodium (Colace) 100 mg PO TID [facility] Last Admin: 12/13/17 18:01 Dose: 100 mg Enoxaparin Sodium (Lovenox) 40 mg SC DAILY [facility] PRN Reason: Protocol Last Admin: 12/13/17 13:02 Dose: 40 mg Ferrous Sulfate (Feosol) 325 mg PO DAILY [facility] Last Admin: 12/13/17 08:24 Dose: 325 mg Fluconazole (Diflucan) 100 mg PO DAILY [facility] PRN Reason: Protocol Last Admin: 12/13/17 13:01 Dose: 100 mg Gabapentin (Neurontin) 300 mg PO Q12 [facility] Last Admin: 12/13/17 08:24 Dose: 300 mg Glucagon (Glucagen Diagnostic Kit) 0 mg IM STAT PRN; Protocol PRN Reason: Hypoglycemia Protocol Glucagon (Glucagen Diagnostic Kit) 0 mg IM STAT PRN; Protocol PRN Reason: Hypoglycemia Protocol Insulin Human Regular (Humulin R) 0 units SC [facility] PRN Reason: Protocol Last Admin: 12/13/17 17:15 Dose: 2 u Metformin HCl (Glucophage) 500 mg PO BIDWM [facility] Last Admin: 12/13/17 18:01 Dose: 500 mg Methylprednisolone (Medrol) 4 mg PO PCS [facility] Last Admin: 12/13/17 18:01 Dose: 4 mg Methylprednisolone (Medrol) 8 mg PO HS [facility] Metoprolol Succinate (Toprol Xl) 25 mg PO DAILY [facility] Last Admin: 12/13/17 08:23 Dose: 25 mg Multivitamins/Minerals (Therapeutic-M Tab) 1 tab PO DAILY [facility] Last Admin: 12/13/17 08:23 Dose: 1 tab Oxycodone HCl (Oxycontin Extended Release Tab) 10 mg PO Q12 [facility] Stop: 12/16/17 11:46 Last Admin: 12/13/17 12:21 Dose: 10 mg Pantoprazole Sodium (Protonix Ec Tab) 40 mg PO DAILY@0630 [facility] Last Admin: 12/13/17 06:52 Dose: 40 mg Polyethylene Glycol (Miralax) 17 gm PO BID [facility] Last Admin: 12/13/17 18:01 Dose: 17 gm Simethicone (Mylicon Chew Tab) 80 mg PO [facility] PRN PRN Reason: Flatulence Last Admin: 12/06/17 21:42 Dose: 80 mg Sitagliptin Phosphate (Januvia) 100 mg PO DAILY [facility] Last Admin: 12/13/17 08:24 Dose: 100 mg Tamsulosin HCl (Flomax) 0.4 mg PO HS [facility] Last Admin: 12/12/17 21:11 Dose: 0.4 mg - Labs Labs: 12/07/17 06:00 12/07/17 06:00 Assessment and Plan (1) Gait difficulty Status: Acute (2) Constipation Status: Acute (3) Status post total right knee replacement Status: Acute (4) Diabetes mellitus, type 2 Status: Chronic - Assessment and Plan (Free Text) Plan: I was present during evaluation and discussed with Dr Hart re plans of care and mgt. Anuel Duarn M.D.
[2017-12-11] MEDS: Metoprolol Succinate 25 mg XL Tab PO SCH (08:18)
[2017-12-11] MEDS: POLYETHYLENE GLYCOL 3350 17 GM/Dose PACKET PO SCH ×2 (08:19→16:45)
[2017-12-11] MEDS: Multivitamin With Minerals Tab PO SCH (08:19)
[2017-12-11] MEDS: Enoxaparin 40 mg Syringe SC SCH (08:19)
[2017-12-11] MEDS: oxyCODONE 10 mg ER Tab (oxyCONTIN) PO SCH ×2 (08:30→20:28)
--- NOTE | 2017-12-11 19:39 | CP.PCM.PN ---
Subjective - Date & Time of Evaluation Date of Evaluation: 12/11/17 Time of Evaluation: 19:38 - Subjective Subjective: Patient seen in the room right LE rash is expanding and now also on the back R>L side good ROM ambulating 125' NAD no constipation Will possibly add Benadryl. Will discuss with Dr Duran Objective - Vital Signs/Intake and Output Vital Signs (last 24 hours): Temp Pulse Resp BP Pulse Ox 98.2 F 88 20 102/50 L 100 12/11/17 15:59 12/11/17 15:59 12/11/17 15:59 12/11/17 15:59 12/11/17 15:59 - Medications Medications: Current Medications Acetaminophen (Tylenol 325mg Tab) 650 mg PO Q4 PRN PRN Reason: pain1-3 Last Admin: 12/07/17 13:58 Dose: 650 mg Aspirin (Ecotrin) 81 mg PO DAILY [facility] Last Admin: 12/11/17 08:18 Dose: 81 mg Atorvastatin Calcium (Lipitor) 10 mg PO DAILY@2100 [facility] Last Admin: 12/10/17 20:35 Dose: 10 mg Celecoxib (Celebrex) 100 mg PO Q12 [facility] Last Admin: 12/11/17 08:18 Dose: 100 mg Clotrimazole (Lotrimin 1% Cream) 1 applic TOP BID [facility] Last Admin: 12/11/17 16:47 Dose: 1 unit Dextrose (Dextrose 50% Inj) 0 ml IV STAT PRN; Protocol PRN Reason: Hypoglycemia Protocol Dextrose (Glutose 15) 0 gm PO ONCE PRN; Protocol PRN Reason: Hypoglycemia Protocol Dextrose (Dextrose 50% Inj) 0 ml IV STAT PRN; Protocol PRN Reason: Hypoglycemia Protocol Dextrose (Glutose 15) 0 gm PO ONCE PRN; Protocol PRN Reason: Hypoglycemia Protocol Docusate Sodium (Colace) 100 mg PO TID [facility] Last Admin: 12/11/17 16:46 Dose: 100 mg Enoxaparin Sodium (Lovenox) 40 mg SC DAILY [facility] PRN Reason: Protocol Last Admin: 12/11/17 08:19 Dose: 40 mg Ferrous Sulfate (Feosol) 325 mg PO DAILY [facility] Last Admin: 12/11/17 08:18 Dose: 325 mg Gabapentin (Neurontin) 300 mg PO Q12 [facility] Last Admin: 12/11/17 08:18 Dose: 300 mg Glucagon (Glucagen Diagnostic Kit) 0 mg IM STAT PRN; Protocol PRN Reason: Hypoglycemia Protocol Glucagon (Glucagen Diagnostic Kit) 0 mg IM STAT PRN; Protocol PRN Reason: Hypoglycemia Protocol Hydrocortisone (Cortizone 1% Cream) 1 applic TOP BID [facility] Last Admin: 12/11/17 16:46 Dose: 1 u Insulin Human Regular (Humulin R) 0 units SC ACHS [facility] PRN Reason: Protocol Last Admin: 12/11/17 16:44 Dose: Not Given Metformin HCl (Glucophage) 500 mg PO BIDWM [facility] Last Admin: 12/11/17 16:47 Dose: 500 mg Metoprolol Succinate (Toprol Xl) 25 mg PO DAILY [facility] Last Admin: 12/11/17 08:18 Dose: 25 mg Multivitamins/Minerals (Therapeutic-M Tab) 1 tab PO DAILY [facility] Last Admin: 12/11/17 08:19 Dose: 1 tab Oxycodone HCl (Oxycontin Extended Release Tab) 10 mg PO Q12 [facility] Stop: 12/12/17 21:01 Last Admin: 12/11/17 08:30 Dose: 10 mg Pantoprazole Sodium (Protonix Ec Tab) 40 mg PO DAILY@0630 [facility] Last Admin: 12/11/17 06:17 Dose: 40 mg Polyethylene Glycol (Miralax) 17 gm PO BID [facility] Last Admin: 12/11/17 16:45 Dose: Not Given Simethicone (Mylicon Chew Tab) 80 mg PO [facility] PRN PRN Reason: Flatulence Last Admin: 12/06/17 21:42 Dose: 80 mg Sitagliptin Phosphate (Januvia) 100 mg PO DAILY [facility] Last Admin: 12/11/17 08:18 Dose: 100 mg Tamsulosin HCl (Flomax) 0.4 mg PO HS [facility] Last Admin: 12/10/17 21:15 Dose: 0.4 mg - Labs Labs: 12/07/17 06:00 12/07/17 06:00
[2017-12-12] MEDS: Pantoprazole 40 mg EC Tab PO SCH (06:17)
[2017-12-12] MEDS: Insulin Regular 100 units/ml SC SCH ×4 (07:45→22:00)
[2017-12-12] MEDS: oxyCODONE 10 mg ER Tab (oxyCONTIN) PO SCH ×2 (08:48→20:43)
[2017-12-12] MEDS: Multivitamin With Minerals Tab PO SCH (08:51)
[2017-12-12] MEDS: Metoprolol Succinate 25 mg XL Tab PO SCH (08:52)
[2017-12-12] MEDS: Enoxaparin 40 mg Syringe SC SCH (08:55)
[2017-12-12] MEDS: POLYETHYLENE GLYCOL 3350 17 GM/Dose PACKET PO SCH ×2 (08:56→17:38)
[2017-12-13] MEDS: Insulin Regular 100 units/ml SC SCH ×4 (06:45→21:43)
[2017-12-13] MEDS: Pantoprazole 40 mg EC Tab PO SCH (06:52)
[2017-12-13] MEDS: Metoprolol Succinate 25 mg XL Tab PO SCH (08:23)
[2017-12-13] MEDS: Multivitamin With Minerals Tab PO SCH (08:23)
[2017-12-13] MEDS: POLYETHYLENE GLYCOL 3350 17 GM/Dose PACKET PO SCH ×2 (08:25→18:01)
[2017-12-13] MEDS ORDERED: methylPREDNISolone 125 MG in Sodium Chloride 0.9% 50 ML IV ONE (11:13)
--- NOTE | 2017-12-13 11:35 | CP.PCM.PN ---
Subjective - Date & Time of Evaluation Date of Evaluation: 12/12/17 Time of Evaluation: 09:30 - Subjective Subjective: Patient continues to have rashes. Has less pruritus. Noted further spread of rashes on the thight knee and abdomen. Has no fever. Objective - Vital Signs/Intake and Output Vital Signs (last 24 hours): Temp Pulse Resp BP Pulse Ox 98.1 F 77 20 114/50 L 100 12/13/17 08:02 12/13/17 08:23 12/13/17 08:02 12/13/17 08:23 12/13/17 08:02 - Medications Medications: Current Medications Acetaminophen (Tylenol 325mg Tab) 650 mg PO Q4 PRN PRN Reason: pain1-3 Last Admin: 12/07/17 13:58 Dose: 650 mg Aspirin (Ecotrin) 81 mg PO DAILY [facility] Last Admin: 12/13/17 08:23 Dose: 81 mg Atorvastatin Calcium (Lipitor) 10 mg PO DAILY@2100 [facility] Last Admin: 12/12/17 20:44 Dose: 10 mg Betamethasone Dipropion Augmented (Diprolene Af) 1 gm TOP DAILY [facility] Celecoxib (Celebrex) 100 mg PO Q12 [facility] Last Admin: 12/13/17 08:23 Dose: 100 mg Clotrimazole (Lotrimin 1% Cream) 1 applic TOP DAILY [facility] Dextrose (Dextrose 50% Inj) 0 ml IV STAT PRN; Protocol PRN Reason: Hypoglycemia Protocol Dextrose (Glutose 15) 0 gm PO ONCE PRN; Protocol PRN Reason: Hypoglycemia Protocol Dextrose (Dextrose 50% Inj) 0 ml IV STAT PRN; Protocol PRN Reason: Hypoglycemia Protocol Dextrose (Glutose 15) 0 gm PO ONCE PRN; Protocol PRN Reason: Hypoglycemia Protocol Diphenhydramine HCl (Benadryl) 25 mg PO Q8H PRN PRN Reason: Itching / Pruritus Last Admin: 12/12/17 20:50 Dose: 25 mg Docusate Sodium (Colace) 100 mg PO TID [facility] Last Admin: 12/13/17 08:23 Dose: 100 mg Ferrous Sulfate (Feosol) 325 mg PO DAILY [facility] Last Admin: 12/13/17 08:24 Dose: 325 mg Fluconazole (Diflucan) 100 mg PO DAILY [facility] PRN Reason: Protocol Gabapentin (Neurontin) 300 mg PO Q12 [facility] Last Admin: 12/13/17 08:24 Dose: 300 mg Glucagon (Glucagen Diagnostic Kit) 0 mg IM STAT PRN; Protocol PRN Reason: Hypoglycemia Protocol Glucagon (Glucagen Diagnostic Kit) 0 mg IM STAT PRN; Protocol PRN Reason: Hypoglycemia Protocol Methylprednisolone 125 mg/ (Sodium Chloride) 50 mls @ 100 mls/hr IV ONCE ONE Stop: 12/13/17 11:42 Insulin Human Regular (Humulin R) 0 units SC [facility] PRN Reason: Protocol Last Admin: 12/13/17 06:45 Dose: Not Given [facility]) [facility] Last Admin: 12/13/17 08:23 Dose: 500 mg Metoprolol Succinate (Toprol Xl) 25 mg PO DAILY [facility] Last Admin: 12/13/17 08:23 Dose: 25 mg Multivitamins/Minerals (Therapeutic-M Tab) 1 tab PO DAILY [facility] Last Admin: 12/13/17 08:23 Dose: 1 tab Pantoprazole Sodium (Protonix Ec Tab) 40 mg PO DAILY@0630 [facility] Last Admin: 12/13/17 06:52 Dose: 40 mg Polyethylene Glycol (Miralax) 17 gm PO BID [facility] Last Admin: 12/13/17 08:25 Dose: Not Given Simethicone (Mylicon Chew Tab) 80 mg PO [facility] PRN PRN Reason: Flatulence Last Admin: 12/06/17 21:42 Dose: 80 mg Sitagliptin Phosphate (Januvia) 100 mg PO DAILY [facility] Last Admin: 12/13/17 08:24 Dose: 100 mg Tamsulosin HCl (Flomax) 0.4 mg PO [facility] Last Admin: 12/12/17 21:11 Dose: 0.4 mg - Labs Labs: 12/07/17 06:00 12/07/17 06:00 - Head Exam Head Exam: NORMAL INSPECTION - Eye Exam Eye Exam: Normal appearance - Respiratory Exam Respiratory Exam: NORMAL BREATHING PATTERN - Cardiovascular Exam Cardiovascular Exam: REGULAR RHYTHM - GI/Abdominal Exam GI & Abdominal Exam: Normal Bowel Sounds - Neurological Exam Neurological Exam: Awake, Oriented x3 - Psychiatric Exam Psychiatric exam: Normal Mood Assessment and Plan (1) Gait difficulty Status: Acute (2) Constipation Status: Acute (3) Status post total right knee replacement Status: Acute (4) Diabetes mellitus, type 2 Status: Chronic - Assessment and Plan (Free Text) Plan: Cont meds Cont tx Cont PT hydrocortisone solumedrol
--- NOTE | 2017-12-13 11:36 | CP.PCM.PN ---
Subjective - Date & Time of Evaluation Date of Evaluation: 12/13/17 Time of Evaluation: 11:35 - Subjective Subjective: Patient claims that rashes are less pruritic today. Objective - Vital Signs/Intake and Output Vital Signs (last 24 hours): Temp Pulse Resp BP Pulse Ox 98.1 F 77 20 114/50 L 100 12/13/17 08:02 12/13/17 08:23 12/13/17 08:02 12/13/17 08:23 12/13/17 08:02 - Medications Medications: Current Medications Acetaminophen (Tylenol 325mg Tab) 650 mg PO Q4 PRN PRN Reason: pain1-3 Last Admin: 12/07/17 13:58 Dose: 650 mg Aspirin (Ecotrin) 81 mg PO DAILY [facility] Last Admin: 12/13/17 08:23 Dose: 81 mg Atorvastatin Calcium (Lipitor) 10 mg PO DAILY@2100 [facility] Last Admin: 12/12/17 20:44 Dose: 10 mg Betamethasone Dipropion Augmented (Diprolene Af) 1 gm TOP DAILY [facility] Celecoxib (Celebrex) 100 mg PO Q12 [facility] Last Admin: 12/13/17 08:23 Dose: 100 mg Clotrimazole (Lotrimin 1% Cream) 1 applic TOP DAILY [facility] Dextrose (Dextrose 50% Inj) 0 ml IV STAT PRN; Protocol PRN Reason: Hypoglycemia Protocol Dextrose (Glutose 15) 0 gm PO ONCE PRN; Protocol PRN Reason: Hypoglycemia Protocol Dextrose (Dextrose 50% Inj) 0 ml IV STAT PRN; Protocol PRN Reason: Hypoglycemia Protocol Dextrose (Glutose 15) 0 gm PO ONCE PRN; Protocol PRN Reason: Hypoglycemia Protocol Diphenhydramine HCl (Benadryl) 25 mg PO Q8H PRN PRN Reason: Itching / Pruritus Last Admin: 12/12/17 20:50 Dose: 25 mg Docusate Sodium (Colace) 100 mg PO TID [facility] Last Admin: 12/13/17 08:23 Dose: 100 mg Ferrous Sulfate (Feosol) 325 mg PO DAILY [facility] Last Admin: 12/13/17 08:24 Dose: 325 mg Fluconazole (Diflucan) 100 mg PO DAILY [facility] PRN Reason: Protocol Gabapentin (Neurontin) 300 mg PO Q12 [facility] Last Admin: 12/13/17 08:24 Dose: 300 mg Glucagon (Glucagen Diagnostic Kit) 0 mg IM STAT PRN; Protocol PRN Reason: Hypoglycemia Protocol Glucagon (Glucagen Diagnostic Kit) 0 mg IM STAT PRN; Protocol PRN Reason: Hypoglycemia Protocol Methylprednisolone 125 mg/ (Sodium Chloride) 50 mls @ 100 mls/hr IV ONCE ONE Stop: 12/13/17 11:42 Insulin Human Regular (Humulin R) 0 units SC ACHS [facility] PRN Reason: Protocol Last Admin: 12/13/17 06:45 Dose: Not Given Metformin HCl (Glucophage) 500 mg PO BIDWM [facility] Last Admin: 12/13/17 08:23 Dose: 500 mg Methylprednisolone (Solu-Medrol) 125 mg IV ONCE ONE Stop: 12/13/17 11:46 Metoprolol Succinate (Toprol Xl) 25 mg PO DAILY [facility] Last Admin: 12/13/17 08:23 Dose: 25 mg Multivitamins/Minerals (Therapeutic-M Tab) 1 tab PO DAILY [facility] Last Admin: 12/13/17 08:23 Dose: 1 tab Pantoprazole Sodium (Protonix Ec Tab) 40 mg PO DAILY@0630 [facility] Last Admin: 12/13/17 06:52 Dose: 40 mg Polyethylene Glycol (Miralax) 17 gm PO BID [facility] Last Admin: 12/13/17 08:25 Dose: Not Given Simethicone (Mylicon Chew Tab) 80 mg PO [facility] PRN PRN Reason: Flatulence Last Admin: 12/06/17 21:42 Dose: 80 mg Sitagliptin Phosphate (Januvia) 100 mg PO DAILY [facility] Last Admin: 12/13/17 08:24 Dose: 100 mg Tamsulosin HCl (Flomax) 0.4 mg PO HS [facility] Last Admin: 12/12/17 21:11 Dose: 0.4 mg - Labs Labs: 12/07/17 06:00 12/07/17 06:00 - Head Exam Head Exam: NORMAL INSPECTION - Eye Exam Eye Exam: Normal appearance - Respiratory Exam Respiratory Exam: Clear to Ausculation Bilateral - Cardiovascular Exam Cardiovascular Exam: Clicks - GI/Abdominal Exam GI & Abdominal Exam: Normal Bowel Sounds - Neurological Exam Neurological Exam: Awake, Oriented x3 - Psychiatric Exam Psychiatric exam: Normal Mood - Skin Additional comments: erythematous rashes confluent with satellite lesions on the knee area thigh and abdomen also noted same erythematous rash on the right antecubital area. Assessment and Plan (1) Gait difficulty Status: Acute (2) Constipation Status: Acute (3) Status post total right knee replacement Status: Acute (4) Diabetes mellitus, type 2 Status: Chronic - Assessment and Plan (Free Text) Plan: Cont meds add solumedrol start diflucan daily lotrisone Cont mds PT.
[2017-12-13] MEDS: oxyCODONE 10 mg ER Tab (oxyCONTIN) PO SCH ×2 (12:21→21:46)
[2017-12-13] MEDS: Enoxaparin 40 mg Syringe SC SCH (13:02)
[2017-12-13] MEDS: Betamethasone Dip 0.05% Cream(15 gm) TOP SCH (13:04)
[2017-12-14] MEDS: Pantoprazole 40 mg EC Tab PO SCH (06:33)
[2017-12-14] MEDS: Insulin Regular 100 units/ml SC SCH ×2 (06:34→12:59)
[2017-12-14] MEDS: POLYETHYLENE GLYCOL 3350 17 GM/Dose PACKET PO SCH (08:28)
[2017-12-14] MEDS: Betamethasone Dip 0.05% Cream(15 gm) TOP SCH (08:29)
[2017-12-14] MEDS: Multivitamin With Minerals Tab PO SCH (08:29)
[2017-12-14] MEDS: Enoxaparin 40 mg Syringe SC SCH (08:30)
[2017-12-14] MEDS: Metoprolol Succinate 25 mg XL Tab PO SCH (08:30)
[2017-12-14] MEDS: oxyCODONE 10 mg ER Tab (oxyCONTIN) PO SCH (08:37)
[2017-12-14] MEDS ORDERED: Betamethasone Dip 0.05% Cream(15 gm) TOP SCH (09:00)
--- NOTE | 2017-12-14 10:08 | CP.PCM.PN ---
Subjective - Date & Time of Evaluation Date of Evaluation: 12/14/17 Time of Evaluation: 08:00 - Subjective Subjective: Patient seen and examined at bedside comfortable. No complaints of pain. No new complaints. Objective - Vital Signs/Intake and Output Vital Signs (last 24 hours): Temp Pulse Resp BP Pulse Ox 98.1 F 82 20 122/71 99 12/14/17 08:04 12/14/17 08:30 12/14/17 08:04 12/14/17 08:30 12/14/17 08:04 - Medications Medications: Current Medications Acetaminophen (Tylenol 325mg Tab) 650 mg PO Q4 PRN PRN Reason: pain1-3 Last Admin: 12/07/17 13:58 Dose: 650 mg Aspirin (Ecotrin) 81 mg PO DAILY [facility] Last Admin: 12/14/17 08:28 Dose: 81 mg Atorvastatin Calcium (Lipitor) 10 mg PO DAILY@2100 [facility] Last Admin: 12/13/17 21:43 Dose: 10 mg Betamethasone Dipropion Augmented (Diprolene Af) 0 gm TOP DAILY [facility] Last Admin: 12/14/17 08:29 Dose: 1 unit Celecoxib (Celebrex) 100 mg PO Q12 [facility] Last Admin: 12/14/17 08:29 Dose: 100 mg Clotrimazole (Lotrimin 1% Cream) 1 applic TOP DAILY [facility] Last Admin: 12/14/17 08:29 Dose: 1 unit Dextrose (Dextrose 50% Inj) 0 ml IV STAT PRN; Protocol PRN Reason: Hypoglycemia Protocol Dextrose (Glutose 15) 0 gm PO ONCE PRN; Protocol PRN Reason: Hypoglycemia Protocol Dextrose (Dextrose 50% Inj) 0 ml IV STAT PRN; Protocol PRN Reason: Hypoglycemia Protocol Dextrose (Glutose 15) 0 gm PO ONCE PRN; Protocol PRN Reason: Hypoglycemia Protocol Diphenhydramine HCl (Benadryl) 25 mg PO Q8H PRN PRN Reason: Itching / Pruritus Last Admin: 12/12/17 20:50 Dose: 25 mg Docusate Sodium (Colace) 100 mg PO TID [facility] Last Admin: 12/14/17 08:29 Dose: 100 mg Enoxaparin Sodium (Lovenox) 40 mg SC DAILY [facility] PRN Reason: Protocol Last Admin: 12/13/17 13:02 Dose: 40 mg Ferrous Sulfate (Feosol) 325 mg PO DAILY [facility] Last Admin: 12/14/17 08:30 Dose: 325 mg Fluconazole (Diflucan) 100 mg PO DAILY [facility] PRN Reason: Protocol Last Admin: 12/14/17 08:29 Dose: 100 mg Gabapentin (Neurontin) 300 mg PO Q12 [facility] Last Admin: 12/14/17 08:29 Dose: 300 mg Glucagon (Glucagen Diagnostic Kit) 0 mg IM STAT PRN; Protocol PRN Reason: Hypoglycemia Protocol Glucagon (Glucagen Diagnostic Kit) 0 mg IM STAT PRN; Protocol PRN Reason: Hypoglycemia Protocol Insulin Human Regular (Humulin R) 0 units SC [facility] PRN Reason: Protocol Last Admin: 12/14/17 06:34 Dose: Not Given Metformin HCl (Glucophage) 500 mg PO BIDWM [facility] Last Admin: 12/14/17 08:29 Dose: 500 mg Methylprednisolone (Medrol) 4 mg PO [facility] Last Admin: 12/13/17 18:01 Dose: 4 mg Methylprednisolone (Medrol) 4 mg PO ONCE ONE Stop: 12/14/17 13:01 Methylprednisolone (Medrol) 4 mg PO [facility] Stop: 12/14/17 17:31 Methylprednisolone (Medrol) 8 mg PO HS [facility] Stop: 12/14/17 22:01 Metoprolol Succinate (Toprol Xl) 25 mg PO DAILY [facility] Last Admin: 12/14/17 08:30 Dose: 25 mg Multivitamins/Minerals (Therapeutic-M Tab) 1 tab PO DAILY [facility] Last Admin: 12/14/17 08:29 Dose: 1 tab Oxycodone HCl (Oxycontin Extended Release Tab) 10 mg PO Q12 [facility] Stop: 12/16/17 11:46 Last Admin: 12/14/17 08:37 Dose: 10 mg Pantoprazole Sodium (Protonix Ec Tab) 40 mg PO DAILY@0630 [facility] Last Admin: 12/14/17 06:33 Dose: 40 mg Polyethylene Glycol (Miralax) 17 gm PO BID [facility] Last Admin: 12/14/17 08:28 Dose: 17 gm Simethicone (Mylicon Chew Tab) 80 mg PO [facility] PRN PRN Reason: Flatulence Last Admin: 12/06/17 21:42 Dose: 80 mg Sitagliptin Phosphate (Januvia) 100 mg PO DAILY [facility] Last Admin: 12/14/17 08:29 Dose: 100 mg Tamsulosin HCl (Flomax) 0.4 mg PO HS [facility] Last Admin: 12/13/17 21:43 Dose: 0.4 mg - Labs Labs: 12/07/17 06:00 12/07/17 06:00 - Extremities Exam Additional comments: R knee: Dressings CDI, wound CDI with adrien, no drainage, swelling and redness medial and posterior thigh much improved Sensation intact SP/DP/TN motor intact EHL/FHL/TA/G pedal pulses intact comp soft NT Assessment and Plan (1) Status post total right knee replacement Assessment & Plan: POD#9 s/p R TKA doing well -rash much improved, will continue to monitor -PT/OT -DVT ppx -orthopedically stable to d/c -above d/w Dr. Diaz in agreement Status: Acute
[2017-12-14 17:06] VITALS: BP 137/89; PULSE 94; TEMP 97.7; O2SAT 93
--- NOTE | 2017-12-17 00:28 | CP.PCM.DIS ---
Provider - Provider Date of Admission: 12/04/17 19:22 Attending physician: Anuel Duran MD Primary care physician: Melo Bailey MD Time Spent in preparation of Discharge (in minutes): 30 Diagnosis - Discharge Diagnosis (1) Gait difficulty Status: Acute (2) Constipation Status: Acute (3) Status post total right knee replacement Status: Acute (4) Diabetes mellitus, type 2 Status: Chronic Hospital Course - Lab Results Lab Results: Most Recent Lab Values WBC 7.6 K/uL (4.8-10.8) 12/07/17 06:00 RBC 3.09 Mil/uL (4.40-5.90) L 12/07/17 06:00 Hgb 9.6 g/dL (12.0-18.0) L 12/07/17 06:00 Hct 27.0 % (35.0-51.0) L 12/07/17 06:00 MCV 87.4 fl (80.0-94.0) 12/07/17 06:00 MCH 31.0 pg (27.0-31.0) 12/07/17 06:00 MCHC 35.5 g/dL (33.0-37.0) 12/07/17 06:00 RDW 13.5 % (11.5-14.5) 12/07/17 06:00 Plt Count 317 K/uL (130-400) 12/07/17 06:00 Sodium 136 mmol/l (132-148) 12/07/17 06:00 Potassium 4.7 MMOL/L (3.6-5.0) 12/07/17 06:00 Chloride 96 mmol/L (98-107) L 12/07/17 06:00 Carbon Dioxide 26 mmol/L (22-30) 12/07/17 06:00 Anion Gap 19 (10-20) 12/07/17 06:00 BUN 14 mg/dl (9-20) 12/07/17 06:00 Creatinine 1.2 mg/dl (0.8-1.5) 12/07/17 06:00 Est GFR ( Amer) > 60 12/07/17 06:00 Est GFR (Non-Af Amer) 59 12/07/17 06:00 POC Glucose (mg/dL) 251 mg/dL (65-110) H 12/14/17 10:46 Random Glucose 162 mg/dL (75-110) H 12/07/17 06:00 Calcium 8.8 mg/dL (8.4-10.2) 12/07/17 06:00 Iron 48 ug/dL (49-181) L 12/05/17 05:30 TIBC 277 ug/dL (250-450) 12/05/17 05:30 % Saturation 17 % (20-55) L 12/05/17 05:30 Ferritin 82.9 ng/Ml (17.9-464) 12/06/17 05:30 Vitamin B12 > 1000 pg/mL (239-931) H 12/06/17 05:30 RBC Folate 1313 ng/mL RBC (>280) 12/06/17 05:30 - Hospital Course Hospital Course: This is a 77 y/o male admitted to TCU for further therapy after TKR. patient had problems with constipation and . He developed rashes around the wound area while doing PT. he was started on Diflucan and iv steroids and responded very well. he did well with his PT and was discharged in stable condition to home. Discharge Exam - Head Exam Head Exam: NORMAL INSPECTION - Eye Exam Eye Exam: Normal appearance - Respiratory Exam Respiratory Exam: NORMAL BREATHING PATTERN - Cardiovascular Exam Cardiovascular Exam: REGULAR RHYTHM - GI/Abdominal Exam GI & Abdominal Exam: Normal Bowel Sounds - Neurological Exam Neurological exam: CN II-XII Intact, Oriented x3 Discharge Plan - Follow Up Plan Condition: GOOD Disposition: HOME/ ROUTINE Instructions: Total Knee Replacement (DC), Preventing Falls Additional Instructions: discharge patient home, followup with PMD in one week, call for appointment. followup with Dr. Diaz, appointment December 23Thursday, at 245pm in the [address] [facility], [address] [place] [address] Referrals: Melo Bailey MD [Primary Care Provider] -
== END 2017-12-14 14:00 | disposition home or self-care (01) | DRG 561 ==
LOC: H.TCU 19:22
PROVIDERS: ADMIT Family Medicine; ATTEND Family Medicine
PROC: F07Z9FZ Gait Training/Functional Ambulation Treatment using Assistive, Adaptive, Supportive or Protective Equipment (ICD-10-PCS; principal; 2017-12-04)
PROC: F08Z4FZ Home Management Treatment using Assistive, Adaptive, Supportive or Protective Equipment (ICD-10-PCS; 2017-12-04)
PROC: F07L6FZ Therapeutic Exercise Treatment of Musculoskeletal System - Lower Back / Lower Extremity using Assistive, Adaptive, Supportive or Protective Equipment (ICD-10-PCS; 2017-12-05)
DX: Z47.1 Aftercare following joint replacement surgery (principal); Z96.651 Presence of right artificial knee joint; E11.40 Type 2 diabetes mellitus with diabetic neuropathy, unspecified; R26.2 Difficulty in walking, not elsewhere classified; L30.4 Erythema intertrigo; K59.09 Other constipation; M17.12 Unilateral primary osteoarthritis, left knee; I25.10 Atherosclerotic heart disease of native coronary artery without angina pectoris; I10 Essential (primary) hypertension; E78.5 Hyperlipidemia, unspecified; E78.00 Pure hypercholesterolemia, unspecified

== ENCOUNTER 2018-06-23 00:04 | Inpatient (IN) | payer MEDICARE ==
[2018-06-23 00:04] VITALS: BMI 28.3
--- NOTE | 2018-06-23 01:20 | ED PDOC ---
HPI: General Adult Time Seen by Provider: 06/23/18 00:46 Chief Complaint (Nursing): Abnormal Labs Additional Complaint(s): 78 y/o male sent from [facility] for low Hemoglobin of 6.7. Patient is status-post left total knee replacement 06/15/18 for severe osteoarthritis. Patient reports some pain in the left knee, otherwise denies all other complaints. Past Medical History Reviewed: Historical Data, Nursing Documentation, Vital Signs Vital Signs: Last Vital Signs Temp 98.7 F 06/23/18 00:17 Pulse 90 06/23/18 00:17 Resp 18 06/23/18 00:17 BP 124/64 06/23/18 00:17 Pulse Ox 100 06/23/18 00:17 - Medical History PMH: Arthritis, CAD (with stent 2006), HTN, Hypercholesterolemia Denies: Chronic Kidney Disease - Family History Family History: States: No Known Family Hx - Living Arrangements Living Arrangements: [facility] - Home Medications Home Medications: Ambulatory Orders Medication Instructions Recorded Atorvastatin Calcium 10 mg PO DAILY 11/30/17 Gabapentin [Neurontin] 300 mg PO TID 11/30/17 Metoprolol Succinate XL [Toprol XL] 25 mg PO DAILY 11/30/17 Multivitamin/Iron/Folic Acid 1 tab PO DAILY 11/30/17 [Centrum Adults Tablet] Celecoxib [celeBREX] 100 mg PO Q12 cap 12/04/17 Polyethylene Glycol 3350 [Miralax] 17 gm PO BID packet 12/04/17 SITagliptin [Januvia] 100 mg PO DAILY tab 12/04/17 Simethicone [Mylicon Chew Tab] 80 mg PO [facility] PRN chew 12/04/17 Tamsulosin [Flomax] 0.4 mg PO HS cap 12/04/17 Docusate [Colace] 100 mg PO TID 12/14/17 Ferrous Sulfate [Feosol] 325 mg PO DAILY 12/14/17 metFORMIN [glucOPHAGE] 500 mg PO BID 12/14/17 Enoxaparin [Lovenox] 40 mg SC DAILY [facility] 06/17/18 Lactulose [Enulose] 10 gm PO DAILY PRN [facility] 06/17/18 oxyCODONE [oxyCODONE Immediate 5 mg PO Q4 PRN #10 tab 06/17/18 Release Tab] oxyCODONE [oxyCONTIN Extended 10 mg PO Q12 #10 tab 06/17/18 Release Tab] - Allergies Allergies/Adverse Reactions: Allergies Allergy/AdvReac Type Severity Reaction Status Date / Time No Known Allergies Allergy Verified 06/23/18 00:17 Review of Systems ROS Statement: Except As Marked, All Systems Reviewed And Found Negative Musculoskeletal: Positive for: Leg Pain (left knee) Physical Exam - Reviewed Nursing Documentation Reviewed: Yes Vital Signs Reviewed: Yes - Physical Exam Appears: Positive for: Well, Non-toxic, No Acute Distress Head Exam: Positive for: ATRAUMATIC, NORMAL INSPECTION, NORMOCEPHALIC Skin: Positive for: Normal Color Eye Exam: Positive for: Normal appearance ENT: Positive for: Normal ENT Inspection Cardiovascular/Chest: Positive for: Regular Rate, Rhythm Respiratory: Positive for: Normal Breath Sounds Gastrointestinal/Abdominal: Positive for: Normal Exam, Other (incision site anterior left knee with surgical adrien in place. No drainage, erythema, bleeding, odor noted) Back: Positive for: Normal Inspection Rectal: Positive for: Hemorrhoids (external), Other (exam reconciliation coordinator Marissa CUELLAR) Extremity: Positive for: Normal ROM Neurologic/Psych: Positive for: Alert, Oriented (x3) - Laboratory Results Result Diagrams: 06/23/18 20:45 06/23/18 02:39 - ECG ECG: Positive for: Viewed By Me (reviewed by ED attending) ECG Rhythm: Positive for: Sinus Rhythm O2 Sat by Pulse Oximetry: 100 - Radiology X-Ray: Viewed By Me X-Ray Interpretation: No Acute Disease - Progress ED Course And Treament: labs, ekg, IV fluids Patient educated on low Hgb findings and need for blood transfusion via [employer] diplomatic interpreter/translator #[id number]. Consent signed Case discussed with Dr. Duran for admission Disposition - Clinical Impression Clinical Impression: Anemia - Patient ED Disposition Is Patient to be Admitted: Yes - Disposition Disposition Time: 03:45 Condition: FAIR
[2018-06-23 02:53] LABS: PROTHROMBIN TIME 11.7 Seconds (9.8-13.1)
[2018-06-23 02:56] LABS: BASO # 0.1 K/uL (0.0-0.2); BASO % 0.4 % (0.0-2.0); EOS # 0.5 K/uL (0.0-0.7); HEMOGLOBIN 6.7 g/dL (12.0-18.0); LYMPH # 1.7 K/uL (1.0-4.3); LYMPH % 13.2 % (20.0-40.0); MEAN CORPUSCULAR HGB CONC 34.7 g/dL (33.0-37.0); MEAN PLATELET VOLUME 7.8 fl (7.2-11.7); MONO # 1.3 K/uL (0.0-0.8); MONO % 9.6 % (0.0-10.0); NEUT # 9.5 K/uL (1.8-7.0); NEUT % 72.8 % (50.0-75.0); NRBC % 2.3 % (0.0-0.0); PARTIAL THROMBOPLASTIN TIME 25.2 Seconds (25.6-37.1); RBC 2.11 Mil/uL (4.40-5.90); RED CELL DISTRIBUTION WIDTH 14.3 % (11.5-14.5)
[2018-06-23 03:00] LABS: ALB/GLOB RATIO 1.2 (1.0-2.1); ALBUMIN 3.3 g/dL (3.5-5.0); ALT/SGPT 37 U/L (21-72); AST/SGOT 45 U/L (17-59); BLOOD UREA NITROGEN 12 mg/dl (9-20); CALCIUM 8.1 mg/dL (8.4-10.2); GFR NON-AFRICAN AMERICAN > 60
[2018-06-23] MEDS ORDERED: Sodium Chloride 0.9% 500 ML IV STA (03:02)
[2018-06-23] MEDS ORDERED: Simethicone 80 mg Chewtab PO PRN (07:59)
[2018-06-23] MEDS ORDERED: oxyCODONE 5 mg Immediate Release Tab PO PRN (07:59)
[2018-06-23] MEDS ORDERED: Lactulose 10 gm/15 ml Syrup PO PRN (07:59)
--- NOTE | 2018-06-23 08:27 | RAD ---
Date of service: 06/23/2018 HISTORY: admit COMPARISON: 12/01/2017 FINDINGS: LUNGS: The previously referenced patchy opacity at the left lung base is not appreciated as such. Each infrahilar medial bronchovascular markings appear minimally prominent-crowding is inferred-shallow lung volumes noted. PLEURA: No significant pleural effusion identified, no pneumothorax apparent. CARDIOVASCULAR: There is presence of aortic atherosclerotic calcification on x-ray. Mild cardiomegaly. Probable top-normal pulmonary vascularity-given degree of inspiration. OSSEOUS STRUCTURES: Bilateral shoulder arthrosis. Thoracic spondylosis. VISUALIZED UPPER ABDOMEN: Normal. OTHER FINDINGS: None. IMPRESSION: Shallow lung volumes and top-normal bronchovascular markings and pulmonary vascular markings. The latter 2 attributed to crowding Cardiomegaly-similar. Prior patchy left basal infiltrate no longer seen as such. No interval pathology noted
[2018-06-23] MEDS ORDERED: oxyCODONE 10 mg ER Tab (oxyCONTIN) PO ONE (10:42)
[2018-06-23] MEDS: oxyCODONE 10 mg ER Tab (oxyCONTIN) PO SCH ×2 (10:43→21:40)
[2018-06-23] MEDS: Multivitamin With Minerals Tab PO SCH (10:44)
[2018-06-23] MEDS: Metoprolol Succinate 25 mg XL Tab PO SCH (10:46)
[2018-06-23] MEDS: POLYETHYLENE GLYCOL 3350 17 GM/Dose PACKET PO SCH ×2 (10:47→16:36)
--- NOTE | 2018-06-23 14:07 | CP.PCM.HP ---
History of Present Illness - History of Present Illness History of Present Illness: 77 y/o M with a PMHx of HTN, CAD s/p cath stent 2006, NIDDM2, HLD, diabetic neuropathy, and severe osteoarthritis of the left knee is admitted due to anemia. Pt had a Hgb level of 6.7. Today, pt was [place] dn examined by bedside with Dr Duran. Pt reports feeling well, c/o mild swelling on L knee but not painful. Pt had a total knee replacement on 06/15/18. Patient denies headaches, chest pain, SOB, abdominal pain, nausea, vomiting, diarrhea, dysuria, or fever. PMD: Dr. Melo Bailey PMHx: HTN, CAD s/p cath stent 2006, NIDDM2, HLD, diabetic neuropathy, and severe OA PSHx: cath 2006, R total knee replacement FHx: non-contributory SHx: denies smoking, alcohol, and drugs Present on Admission - Present on Admission Any Indicators Present on Admission: No Review of Systems - Constitutional Constitutional: absent: Chills, Fever - EENT Eyes: absent: Change in Vision Nose/Mouth/Throat: absent: Sore Throat, Facial Pain, Neck Mass - Cardiovascular Cardiovascular: absent: Chest Pain - Respiratory Respiratory: absent: Cough, Dyspnea, Hemoptysis - Gastrointestinal Gastrointestinal: absent: Abdominal Pain, Bloating, Hematemesis, Nausea - Genitourinary Genitourinary: absent: Difficulty Urinating, Dysuria, Hematuria - Musculoskeletal Musculoskeletal: absent: Back Pain, Tingling Past Patient History - Past Medical History & Family History Past Medical History?: Yes - Past Social History Smoking Status: Never Smoked - CARDIAC Hx Cardiac Disorders: Yes - PULMONARY Hx Respiratory Disorders: Yes - NEUROLOGICAL Hx Neurological Disorder: Yes - HEENT Hx HEENT Problems: Yes - RENAL Hx Chronic Kidney Disease: No - ENDOCRINE/METABOLIC Hx Endocrine Disorders: Yes Hx Diabetes Mellitus Type 2: Yes - HEMATOLOGICAL/ONCOLOGICAL Hx Blood Disorders: Yes - INTEGUMENTARY Hx Dermatological Problems: No - MUSCULOSKELETAL/RHEUMATOLOGICAL Hx Arthritis: Yes - GASTROINTESTINAL Hx Gastrointestinal Disorders: No - GENITOURINARY/GYNECOLOGICAL Hx Genitourinary Disorders: No - PSYCHIATRIC Hx Psychophysiologic Disorder: No Hx Substance Use: No - SURGICAL HISTORY Hx Surgeries: Yes Hx Angioplasty: Yes (2007) Hx Joint Replacement: Yes (right tkr 12/01) - ANESTHESIA Hx Anesthesia: Yes Hx Anesthesia Reactions: No Hx Malignant Hyperthermia: No Meds Allergies/Adverse Reactions: Allergies Allergy/AdvReac Type Severity Reaction Status Date / Time No Known Allergies Allergy Verified 06/23/18 00:17 Physical Exam - Constitutional Appears: Well, No Acute Distress - Head Exam Head Exam: ATRAUMATIC - Eye Exam Eye Exam: EOMI - ENT Exam ENT Exam: Mucous Membranes Dry - Neck Exam Neck exam: Positive for: Full Rom, Normal Inspection. Negative for: Meningismus - Respiratory Exam Respiratory Exam: NORMAL BREATHING PATTERN. absent: Rales, Rhonchi, Wheezes - Cardiovascular Exam Cardiovascular Exam: +S1, +S2 - GI/Abdominal Exam GI & Abdominal Exam: Normal Bowel Sounds, Soft. absent: Tenderness - Extremities Exam Extremities exam: Positive for: normal inspection. Negative for: calf tenderness - Neurological Exam Neurological exam: Alert, Oriented x3 Results - Vital Signs Recent Vital Signs: Last Vital Signs Temp 98.4 F 06/23/18 13:29 Pulse 83 06/23/18 13:29 Resp 19 06/23/18 13:29 BP 120/78 06/23/18 13:29 Pulse Ox 98 06/23/18 13:29 - Labs Result Diagrams: 06/23/18 02:39 06/23/18 02:39 Labs: Laboratory Results - last 24 hr 06/23/18 06/23/18 06/23/18 02:33 02:39 02:39 WBC 13.0 H RBC 2.11 L Hgb 6.7 L D Hct 19.4 L MCV 92.0 D MCH 32.0 H MCHC 34.7 RDW 14.3 Plt Count 390 D MPV 7.8 Neut % (Auto) 72.8 Lymph % (Auto) 13.2 L Villalba % (Auto) 9.6 Eos % (Auto) 4.0 Baso % (Auto) 0.4 Neut # (Auto) 9.5 H Lymph # (Auto) 1.7 Villalba # (Auto) 1.3 H Eos # (Auto) 0.5 Baso # (Auto) 0.1 PT INR APTT Sodium 124 L Potassium 4.2 Chloride 96 L Carbon Dioxide 20 L Anion Gap 12 BUN 12 Creatinine 0.9 Est GFR ( Amer) > 60 Est GFR (Non-Af Amer) > 60 POC Glucose (mg/dL) 188 H Random Glucose 194 H Calcium 8.1 L Total Bilirubin 1.4 H AST 45 ALT 37 Alkaline Phosphatase 85 Total Protein 6.0 L Albumin 3.3 L Globulin 2.7 Albumin/Globulin Ratio 1.2 Stool Occult Blood Blood Type Antibody Screen Crossmatch BBK History Checked 06/23/18 06/23/18 06/23/18 02:39 02:39 03:40 WBC RBC Hgb Hct MCV MCH MCHC RDW Plt Count MPV Neut % (Auto) Lymph % (Auto) Villalba % (Auto) Eos % (Auto) Baso % (Auto) Neut # (Auto) Lymph # (Auto) Villalba # (Auto) Eos # (Auto) Baso # (Auto) PT 11.7 INR 1.0 APTT 25.2 L Sodium Potassium Chloride Carbon Dioxide Anion Gap BUN Creatinine Est GFR ( Amer) Est GFR (Non-Af Amer) POC Glucose (mg/dL) Random Glucose Calcium Total Bilirubin AST ALT Alkaline Phosphatase Total Protein Albumin Globulin Albumin/Globulin Ratio Stool Occult Blood Positive H Blood Type A POSITIVE Antibody Screen Negative Crossmatch See Detail BBK History Checked Patient has bt 06/23/18 10:07 WBC RBC Hgb Hct MCV MCH MCHC RDW Plt Count MPV Neut % (Auto) Lymph % (Auto) Villalba % (Auto) Eos % (Auto) Baso % (Auto) Neut # (Auto) Lymph # (Auto) Villalba # (Auto) Eos # (Auto) Baso # (Auto) PT INR APTT Sodium Potassium Chloride Carbon Dioxide Anion Gap BUN Creatinine Est GFR ( Amer) Est GFR (Non-Af Amer) POC Glucose (mg/dL) 242 H Random Glucose Calcium Total Bilirubin AST ALT Alkaline Phosphatase Total Protein Albumin Globulin Albumin/Globulin Ratio Stool Occult Blood Blood Type Antibody Screen Crossmatch BBK History Checked Assessment & Plan - Assessment and Plan (Free Text) Assessment: 77 y/o M s/p L knee replacement surgery on 06/15/18 is admitted due to normocytic anemia, Hgb 6.7. PLAN: --Transfusing 2 PRBC's. --Home meds resume --Iron sulfate BID. --will repeat CBC later today --US venous dupplex of LLE. --Continue mangement as ordered. Case discussed with Dr Duran - Date & Time Date: 06/23/18 Time: 14:14
[2018-06-23] MEDS ORDERED: Dextrose 50% SYRINGE Inj (50 ml) IV PRN (15:56)
[2018-06-23] MEDS ORDERED: Glucagon Recombinant 1 mg Inj IM PRN (15:56)
[2018-06-23] MEDS: Insulin Lispro (humaLOG) 100 Units/ml Inj SC SCH ×2 (18:38→22:04)
--- NOTE | 2018-06-23 18:52 | US ---
Left lower extremity ultrasound. Indication: Left lower extremity swelling, recent surgery, anemia Technique: Duplex ultrasound evaluation of the left lower extremity Comparison: None available Findings: There is normal flow, compressibility, and augmentation of the left common femoral, femoral, and popliteal veins. The left posterior tibial veins appear patent. Impression: No evidence of deep venous thrombosis in the left lower extremity.
[2018-06-23 20:50] LABS: HEMOGLOBIN 10.8 g/dL (12.0-18.0); MEAN CELL VOLUME 91.4 fl (80.0-94.0); MEAN CORPUSCULAR HEMOGLOBIN 31.3 pg (27.0-31.0); MEAN CORPUSCULAR HGB CONC 34.2 g/dL (33.0-37.0); RBC 3.45 Mil/uL (4.40-5.90); RED CELL DISTRIBUTION WIDTH 14.4 % (11.5-14.5); WHITE BLOOD COUNT 11.9 K/uL (4.8-10.8)
[2018-06-24 06:33] LABS: HEMOGLOBIN 11.1 g/dL (12.0-18.0); MEAN CELL VOLUME 90.8 fl (80.0-94.0); MEAN CORPUSCULAR HEMOGLOBIN 31.2 pg (27.0-31.0); MEAN CORPUSCULAR HGB CONC 34.3 g/dL (33.0-37.0); RBC 3.56 Mil/uL (4.40-5.90); RED CELL DISTRIBUTION WIDTH 14.3 % (11.5-14.5); WHITE BLOOD COUNT 12.7 K/uL (4.8-10.8)
[2018-06-24 06:47] LABS: BLOOD UREA NITROGEN 10 mg/dl (9-20); CALCIUM 8.3 mg/dL (8.4-10.2); GFR NON-AFRICAN AMERICAN > 60
[2018-06-24] MEDS: Insulin Lispro (humaLOG) 100 Units/ml Inj SC SCH ×4 (07:37→22:02)
[2018-06-24] MEDS: POLYETHYLENE GLYCOL 3350 17 GM/Dose PACKET PO SCH ×2 (08:56→17:22)
[2018-06-24] MEDS: Metoprolol Succinate 25 mg XL Tab PO SCH (08:56)
[2018-06-24] MEDS: Multivitamin With Minerals Tab PO SCH (08:56)
[2018-06-24] MEDS: oxyCODONE 10 mg ER Tab (oxyCONTIN) PO SCH ×2 (11:36→21:57)
[2018-06-24] MEDS: Sodium Chloride 0.9% 1,000 ML IV SCH (15:35)
--- NOTE | 2018-06-24 16:22 | RAD ---
Date of service: 06/24/2018 HISTORY: Abdominal distention COMPARISON: 12/03/2017 FINDINGS: BOWEL: Normal. No obstruction. No free air. BONES: Normal. OTHER FINDINGS: Increased interstitial markings at the lung bases without focal/discrete infiltrate or pleural effusion. IMPRESSION: No evidence of mechanical obstruction or free air.
--- NOTE | 2018-06-24 17:01 | CP.PCM.PN ---
Subjective - Date & Time of Evaluation Date of Evaluation: 06/24/18 Time of Evaluation: 11:35 - Subjective Subjective: 78 y/o M seen and examined by bedside with Dr Duran. pt reports feeling well, complains of abdominal distension, reports her last BM was 2-3 days ago. Pt afebrile, tolerating PO with NO acute events overnight. Objective - Vital Signs/Intake and Output Vital Signs (last 24 hours): Temp Pulse Resp BP Pulse Ox 98 F 74 20 119/69 99 06/24/18 09:00 06/24/18 09:00 06/24/18 09:00 06/24/18 09:00 06/24/18 09:00 - Medications Medications: Current Medications Atorvastatin Calcium (Lipitor) 10 mg PO DAILY [facility] Last Admin: 06/24/18 11:37 Dose: 10 mg Celecoxib (Celebrex) 100 mg PO Q12 [facility] Last Admin: 06/24/18 08:55 Dose: 100 mg Dextrose (Dextrose 50% Inj) 0 ml IV STAT PRN; Protocol PRN Reason: Hypoglycemia Protocol Dextrose (Glutose 15) 0 gm PO ONCE PRN; Protocol PRN Reason: Hypoglycemia Protocol Docusate Sodium (Colace) 100 mg PO TID [facility] Last Admin: 06/24/18 13:15 Dose: 100 mg Ferrous Sulfate (Feosol) 325 mg PO BID [facility] Last Admin: 06/24/18 08:56 Dose: 325 mg Gabapentin (Neurontin) 300 mg PO TID [facility] Last Admin: 06/24/18 13:16 Dose: 300 mg Glucagon (Glucagen Diagnostic Kit) 0 mg IM STAT PRN; Protocol PRN Reason: Hypoglycemia Protocol Sodium Chloride (Sodium Chloride 0.9%) 1,000 mls @ 60 mls/hr IV .[id number] [facility] Stop: 06/25/18 13:44 Last Admin: 06/24/18 15:35 Dose: 60 mls/hr Insulin Human Lispro (Humalog) 0 units SC ACCU-CHECK [facility]; Protocol Last Admin: 06/24/18 13:14 Dose: 3 unit Lactulose (Enulose) 10 gm PO DAILY PRN PRN Reason: Constipation Metformin HCl (Glucophage) 500 mg PO BID [facility] Last Admin: 06/24/18 08:56 Dose: 500 mg Metoprolol Succinate (Toprol Xl) 25 mg PO DAILY [facility] Last Admin: 06/24/18 08:56 Dose: 25 mg Multivitamins/Minerals (Therapeutic-M Tab) 1 tab PO DAILY [facility] Last Admin: 06/24/18 08:56 Dose: 1 tab Oxycodone HCl (Oxycodone Immediate Release Tab) 5 mg PO Q4 PRN PRN Reason: pain4-6 Oxycodone HCl (Oxycontin Extended Release Tab) 10 mg PO Q12 [facility] Stop: 06/26/18 09:01 Last Admin: 06/24/18 11:36 Dose: 10 mg Polyethylene Glycol (Miralax) 17 gm PO BID [facility] Last Admin: 06/24/18 08:56 Dose: 17 gm Simethicone (Mylicon Chew Tab) 80 mg PO [facility] PRN PRN Reason: Flatulence Sitagliptin Phosphate (Januvia) 100 mg PO DAILY [facility] Last Admin: 06/24/18 08:56 Dose: 100 mg Tamsulosin HCl (Flomax) 0.4 mg PO HS [facility] Last Admin: 06/23/18 21:40 Dose: 0.4 mg - Labs Labs: 06/24/18 05:35 06/24/18 05:35 PT 11.7 Seconds (9.8-13.1) 06/23/18 02:39 INR 1.0 06/23/18 02:39 APTT 25.2 Seconds (25.6-37.1) L 06/23/18 02:39 - Additional Findings Additional findings: - Constitutional Appears: Well, No Acute Distress - Head Exam Head Exam: ATRAUMATIC - Eye Exam Eye Exam: EOMI - ENT Exam ENT Exam: Mucous Membranes Dry - Neck Exam Neck exam: Positive for: Full Rom, Normal Inspection. Negative for: Meningismus - Respiratory Exam Respiratory Exam: NORMAL BREATHING PATTERN. absent: Rales, Rhonchi, Wheezes - Cardiovascular Exam Cardiovascular Exam: +S1, +S2 - GI/Abdominal Exam GI & Abdominal Exam: Normal Bowel Sounds, Soft. absent: Tenderness - Extremities Exam Extremities exam: Positive for: normal inspection. Negative for: calf tenderness - Neurological Exam Neurological exam: Alert, Oriented x3 Assessment and Plan - Assessment and Plan (Free Text) Assessment: 77 y/o M s/p L knee replacement surgery on 06/15/18 is admitted due to normocytic anemia, Hgb 6.7. PLAN: --Stable --Hgb 11.1 today. Transfused 2 PRBC's. --US venous dupplex of LLE showed NO DVT --XR of abdomen --Lactulose PO once and enema per rectum for constipation. --Continue mangement as ordered. Case discussed with Dr Duran
[2018-06-24] MEDS ORDERED: DiphenhydrAMINE 50 mg/ml Inj IVP STA (17:33)
[2018-06-25] MEDS: Insulin Lispro (humaLOG) 100 Units/ml Inj SC SCH ×4 (06:28→22:00)
[2018-06-25 06:31] LABS: MEAN CELL VOLUME 91.7 fl (80.0-94.0); MEAN CORPUSCULAR HEMOGLOBIN 30.9 pg (27.0-31.0); MEAN CORPUSCULAR HGB CONC 33.7 g/dL (33.0-37.0); RBC 3.58 Mil/uL (4.40-5.90)
[2018-06-25 06:58] LABS: ALB/GLOB RATIO 1.1 (1.0-2.1); ALBUMIN 3.3 g/dL (3.5-5.0); ALT/SGPT 46 U/L (21-72); AST/SGOT 33 U/L (17-59); BLOOD UREA NITROGEN 12 mg/dl (9-20); CALCIUM 8.4 mg/dL (8.4-10.2); GFR NON-AFRICAN AMERICAN > 60
[2018-06-25] MEDS: Sodium Chloride 0.9% 1,000 ML IV SCH (07:19)
[2018-06-25] MEDS: oxyCODONE 10 mg ER Tab (oxyCONTIN) PO SCH ×2 (08:35→21:36)
[2018-06-25] MEDS: POLYETHYLENE GLYCOL 3350 17 GM/Dose PACKET PO SCH ×2 (08:37→16:18)
[2018-06-25] MEDS: Metoprolol Succinate 25 mg XL Tab PO SCH (08:39)
[2018-06-25] MEDS: Multivitamin With Minerals Tab PO SCH (08:39)
[2018-06-25] MEDS ORDERED: DiphenhydrAMINE 50 mg/ml Inj IVP PRN (15:50)
--- NOTE | 2018-06-25 16:04 | CP.PCM.PN ---
Subjective - Date & Time of Evaluation Date of Evaluation: 06/25/18 Time of Evaluation: 11:20 - Subjective Subjective: 78 y/o M seen and examined by bedside with Dr Duran. Pt reports feeling well, had a bowel movement today, no abdominal discomfort. Pt afebrile, tolerating PO. --Nurse paged brief writer at 15:30 about a sudden onset of rash that is pruritic, started on anterior part of left knee around knee brace, extending into L thigh, extending into abdomen and chest. Pt was given Benadryl and Solu-Medrol overnight due to same complaint but rash was at lesser extent. Objective - Vital Signs/Intake and Output Vital Signs (last 24 hours): Temp Pulse Resp BP Pulse Ox 97.9 F 88 20 93/57 L 98 06/25/18 08:45 06/25/18 08:45 06/25/18 08:45 06/25/18 08:45 06/25/18 08:45 - Medications Medications: Current Medications Atorvastatin Calcium (Lipitor) 10 mg PO DAILY [facility] Last Admin: 06/25/18 08:38 Dose: 10 mg Celecoxib (Celebrex) 100 mg PO Q12 [facility] Last Admin: 06/25/18 08:38 Dose: 100 mg Dextrose (Dextrose 50% Inj) 0 ml IV STAT PRN; Protocol PRN Reason: Hypoglycemia Protocol Dextrose (Glutose 15) 0 gm PO ONCE PRN; Protocol PRN Reason: Hypoglycemia Protocol Diphenhydramine HCl (Benadryl) 25 mg IVP Q6 [facility] Docusate Sodium (Colace) 100 mg PO TID [facility] Last Admin: 06/25/18 13:17 Dose: 100 mg Ferrous Sulfate (Feosol) 325 mg PO BID [facility] Last Admin: 06/25/18 08:38 Dose: 325 mg Gabapentin (Neurontin) 300 mg PO TID [facility] Last Admin: 06/25/18 13:17 Dose: 300 mg Glucagon (Glucagen Diagnostic Kit) 0 mg IM STAT PRN; Protocol PRN Reason: Hypoglycemia Protocol Insulin Human Lispro (Humalog) 0 units SC ACCU-CHECK [facility]; Protocol Lactulose (Enulose) 10 gm PO DAILY PRN PRN Reason: Constipation Metformin HCl (Glucophage) 500 mg PO BID [facility] Last Admin: 06/25/18 08:38 Dose: 500 mg Methylprednisolone (Solu-Medrol) 60 mg IVP ONCE ONE Stop: 06/25/18 15:53 Metoprolol Succinate (Toprol Xl) 25 mg PO DAILY [facility] Last Admin: 06/25/18 08:39 Dose: Not Given Multivitamins/Minerals (Therapeutic-M Tab) 1 tab PO DAILY [facility] Last Admin: 06/25/18 08:39 Dose: 1 tab Oxycodone HCl (Oxycodone Immediate Release Tab) 5 mg PO Q4 PRN PRN Reason: pain4-6 Oxycodone HCl (Oxycontin Extended Release Tab) 10 mg PO Q12 [facility] Stop: 06/26/18 09:01 Last Admin: 06/25/18 08:35 Dose: 10 mg Polyethylene Glycol (Miralax) 17 gm PO BID [facility] Last Admin: 06/25/18 08:37 Dose: 17 gm Simethicone (Mylicon Chew Tab) 80 mg PO [facility] PRN PRN Reason: Flatulence Sitagliptin Phosphate (Januvia) 100 mg PO DAILY [facility] Last Admin: 06/25/18 08:37 Dose: 100 mg Tamsulosin HCl (Flomax) 0.4 mg PO HS [facility] Last Admin: 06/24/18 21:58 Dose: 0.4 mg - Labs Labs: 06/25/18 05:20 06/25/18 05:20 PT 11.7 Seconds (9.8-13.1) 06/23/18 02:39 INR 1.0 06/23/18 02:39 APTT 25.2 Seconds (25.6-37.1) L 06/23/18 02:39 - Constitutional Appears: Well, No Acute Distress - Head Exam Head Exam: NORMAL INSPECTION - Eye Exam Eye Exam: EOMI, Normal appearance - ENT Exam ENT Exam: Mucous Membranes Moist - Neck Exam Neck Exam: Full ROM, Normal Inspection. absent: Meningismus - Respiratory Exam Respiratory Exam: NORMAL BREATHING PATTERN. absent: Rales, Rhonchi, Wheezes, Respiratory Distress - Cardiovascular Exam Cardiovascular Exam: +S1, +S2 - GI/Abdominal Exam GI & Abdominal Exam: Soft, Normal Bowel Sounds. absent: Guarding, Rigid, Tenderness - Neurological Exam Neurological Exam: Alert, Awake, Oriented x3 - Skin Additional comments: Presence of urticaria, erythematous elevated patches extending from L lower leg into left anterior thigh, abdomen, chest and into R popliteal area. Assessment and Plan - Assessment and Plan (Free Text) Assessment: 77 y/o M s/p L knee replacement surgery on 06/15/18 is admitted due to normocytic anemia, Hgb 6.7. --Developed urticaria today's afternoon. PLAN: --Stable --IV Solu-Medrol STAT --IV Benadryl 25mg Q6H --Hgb 11.o today. Transfused 2 PRBC's. --US venous dupplex of LLE showed NO DVT --XR of abdomen was unremarkable --Continue mangement as ordered. Case discussed with Dr Duran who agrees with the above CARO Chase PGY-2
[2018-06-25] MEDS: DiphenhydrAMINE 50 mg/ml Inj IVP SCH ×2 (16:14→21:37)
[2018-06-26] MEDS: DiphenhydrAMINE 50 mg/ml Inj IVP SCH ×2 (05:00→10:57)
[2018-06-26] MEDS: Insulin Lispro (humaLOG) 100 Units/ml Inj SC SCH ×2 (06:02→13:01)
[2018-06-26] MEDS: oxyCODONE 10 mg ER Tab (oxyCONTIN) PO SCH (08:35)
[2018-06-26] MEDS: POLYETHYLENE GLYCOL 3350 17 GM/Dose PACKET PO SCH (08:36)
[2018-06-26] MEDS: Multivitamin With Minerals Tab PO SCH (08:36)
[2018-06-26] MEDS: Metoprolol Succinate 25 mg XL Tab PO SCH (08:37)
[2018-06-26 08:39] VITALS: BP 113/76; PULSE 93
[2018-06-26 10:50] VITALS: RESP 19; TEMP 98.7; O2SAT 99
== END 2018-06-26 15:15 | DRG 812 ==
LOC: H.ER 00:04 → H.ERHOLD 03:55 → H.MEDSURG1 14:06
PROVIDERS: ADMIT Family Medicine; ATTEND Family Medicine
PROC: 30233N1 Transfusion of Nonautologous Red Blood Cells into Peripheral Vein, Percutaneous Approach (ICD-10-PCS; principal; 2018-06-23)
DX: D50.0 Iron deficiency anemia secondary to blood loss (chronic) (principal); E11.40 Type 2 diabetes mellitus with diabetic neuropathy, unspecified; E78.00 Pure hypercholesterolemia, unspecified; E78.5 Hyperlipidemia, unspecified; I10 Essential (primary) hypertension; I25.10 Atherosclerotic heart disease of native coronary artery without angina pectoris; L50.9 Urticaria, unspecified; M17.12 Unilateral primary osteoarthritis, left knee; Z79.84 Long term (current) use of oral hypoglycemic drugs; Z95.5 Presence of coronary angioplasty implant and graft; Z96.653 Presence of artificial knee joint, bilateral; M19.90 Unspecified osteoarthritis, unspecified site